=== PATIENT | female | born 1960 | race Caucasian/White ===

== ENCOUNTER 2021-01-29 10:25 | Outpatient (CLI) | payer OTHER, SELFPAY ==
--- NOTE | ~2021-01-29 | MM_ITS ---
EXAMINATION: MM screening cynthia BI w sudha HISTORY: Screening mammogram TECHNIQUE: Craniocaudal and mediolateral oblique 3-D tomosynthesis images were obtained and synthetic 2-D images were generated. CAD analysis was submitted and interpreted. COMPARISON: October 18, 2018, July 20, 2017, August 28, 2015, March 31, 2014 bilateral digital s creening mammogram examinations BREAST PARENCHYMAL COMPOSITION: There are scattered areas of fibroglandular density. FINDINGS: Stable mild fibroglandular asymmetry. There is no evidence of suspicious mass, calcificatio n, or architectural distortion to suggest malignancy in either breast. There has been no suspicious i nterval change. IMPRESSION: 1. No mammographic evidence of malignancy. 2. Recommend routine screening mammography in one year. BI-RADS Category 2: Benign finding(s). Reviewed, dictated and finalized at location A.
== END 2021-01-29 10:26 | disposition home or self-care (01) ==
PROVIDERS: PCP Emergency Medicine; Visit Provider Emergency Medicine
DX: Z12.31 Encounter for screening mammogram for malignant neoplasm of breast (principal)
CPT/HCPCS: 77063; 77067

== ENCOUNTER 2024-04-26 14:45 | Emergency (ER) | payer OTHER, SELFPAY ==
[2024-04-26] VITALS (12 sets, daily range): BP systolic 154–268; BP diastolic 130–169; PULSE 70–110; RESP 16–26; TEMP 36.3; O2SAT 89–99
--- NOTE | ~2024-04-26 | CT_ITS ---
EXAMINATION: CT brain wo con DATE: 04/26/2024 14:59 INDICATION: Stroke TECHNIQUE: Computed tomography (CT) of the head was performed without intravenous contrast. Sagittal and coronal reconstructions were performed. The mA was adjusted according to patient size. Iterative reconstruction technique was employed. The dose-length product was 529.67 mGy-cm. COMPARISON: None FINDINGS: There is an intraparenchymal hemorrhage at the left basal ganglia which measures 2.5 x 2.5 x 3.0 cm. There is mild local mass effect upon the body of the left lateral ventricle. No acute intracranial in farction or abnormal extra axial fluid collection. Ventricles are otherwise normal and symmetric. The orbits, paranasal sinuses and mastoid air cells are normal. IMPRESSION: 1. 3.0 x 2.5 x 2.5 cm intraparenchymal hemorrhage in the left basal ganglia. Dr. Perez discussed t hese findings with Dr. Cifuentes at 2:57 PM. Reviewed, dictated and finalized at location A. IMPRESSION: 1. 3.0 x 2.5 x 2.5 cm intraparenchymal hemorrhage in the left basal ganglia. Dr Annika Perez discussed these findings with Dr. Cifuentes at 2:57 PM.
--- NOTE | ~2024-04-26 | CT_ITS ---
EXAMINATION: CTA brain carotid DATE: 04/26/2024 15:47 INDICATION: Cerebrovascular accident. TECHNIQUE: Computed tomographic angiography (CTA) of the head was performed with 100 mL Omnipaque-350 intravenous contrast. CTA of the neck was performed with intravenous contrast. Automated exposure co ntrol and iterative reconstruction technique were employed. The dose-length product was 934.49 mGy-cm . Maximum intensity projection and volume rendered 3D-reconstructions were created by the [employer] t on a separate workstation. COMPARISON: Head CT 04/26/2024 FINDINGS: HEAD CTA: There is acute intraparenchymal hematoma centered in the left basal ganglia. There is no ac kiana ischemic infarct or abnormal mass lesion. The ventricles are normal in size. The orbits are yashira l. The paranasal sinuses are clear. The mastoid air cells are normal. Left vertebral artery is domina nt. There is no significant stenosis of basilar artery or the posterior cerebral arteries. There is n o significant stenosis of the intracranial internal carotid arteries or anterior or middle cerebral a rteries. Anterior communicating artery is normal. The posterior communicating arteries are normal. Th ere is no aneurysm. NECK CTA: There are no pathologically enlarged lymph nodes. There are nodules in the thyroid measurin g up to 3 mm, likely not clinically significant. There is no significant stenosis of the vertebral ar teries. There is minimal plaque in the proximal internal carotid arteries. There is 0% stenosis of t he proximal right internal carotid artery relative to normal distal artery lumen diameter (NASCET cri teria). There is 0% stenosis of the proximal left internal carotid artery relative to normal distal a rtery lumen diameter. There is extensive dental disease. There is severe cervical spondylosis. IMPRESSION: 1. Acute intraparenchymal hematoma centered in the left basal ganglia. 2. No aneurysm or significant intracranial arterial stenosis. 3. 0% stenosis of the proximal internal carotid arteries relative to normal distal artery lumen diame ters (NASCET criteria). Reviewed, dictated and finalized at location A. IMPRESSION: 1. Acute intraparenchymal hematoma centered in the left basal ganglia. 2. No aneurysm or significant intracranial arterial stenosis. 3. 0% stenosis of the proximal internal carotid arteries relative to normal dis karla artery lumen diameters (NASCET criteria).
--- NOTE | 2024-04-26 14:49 | ECG_ITS ---
Test Date: 2024-04-26 15:05:44 Measurements Intervals [place] Rate: 113 P: 65 IA: 160 QRS: 39 QRSD: 104 T: 80 QT: 364 QTc: 501 Interpretive Statements SINUS TACHYCARDIA WITH ATRIAL PREMATURE COMPLEX AND FREQUENT VENTRICULAR PREMATURE COMPLEXES LEFT VENTRICULAR HYPERTROPHY WITH ST-T CHANGE BORDERLINE ST-T WAVE ABNORMALITY- INF/LAT LEADS BASELINE ARTIFACT- I, II, III, AVR, AVL, AVF, V1, V6 ABNORMAL ECG No previous ECG available for comparison Electronically Signed On 04-26-2024 15:27:53 CDT by Lit Lopez D.O.
--- NOTE | 2024-04-26 14:52 | PC.NURSE ---
Pt taken directly to CT scan following stroke stop. BS 181
[2024-04-26 15:00] LABS: Basophils Absolute Auto 0.1 K/mm3 (0.0-0.1); Basophils Percent Auto 0.8 % (0.2-1.2); Eosinophils Absolute Auto 0.2 K/mm3 (0-0.3); Eosinophils Percent Auto 2.2 % (0-4.4); Hematocrit 40.1 % (37.0-47.0); Hemoglobin 13.5 g/dL (12.0-15.0); Immature Granulocyte Absolute 0.03 K/mm3 (0.00-0.031); Immature Granulocyte Percent A 0.4 % (0-0.5); Lymphocytes Absolute Auto 1.44 K/mm3 (0.9-3.2); Lymphocytes Percent Auto 18.3 % (18.3-44.2); Mean Corpuscular HGB Conc 33.7 g/dl (32-36); Mean Corpuscular Hemoglobin 30.3 pg (26-34); Mean Corpuscular Volume 89.9 fl (80-100); Mean Platelet Volume 10.6 fl (7.4-10.4); Monocytes Absolute Auto 0.7 K/mm3 (0.1-0.6); Monocytes Percent Auto 8.5 % (2.6-8.5); Neutrophils Absolute Auto 5.5 K/mm3 (1.3-6.7); Neutrophils Percent Auto 69.8 % (45.5-73.1); Platelet Count Result 224 k/mm3 (150-375); Red Blood Count 4.46 M/mm3 (4.2-5.4); Red Cell Distribution Width 13.5 % (11.5-14.5); White Blood Count 7.9 K/mm3 (4.5-10.0)
--- NOTE | 2024-04-26 15:03 | ED.NEUROSD ---
HPI - Neuro Symptoms/Deficit General Chief Complaint: Suspected CVA Stated Complaint: CVA symptoms Time Seen by Provider: 04/26/24 14:56 History of Present Illness HPI Narrative: 63-year-old female presented to the emergency department from work after having acute onset right-sided weakness. Patient was transported to the emergency department by EMS. Family states the patient does have history of hypertension and diabetes but is relatively noncompliant with her medications. Upon arrival to the emergency department patient is having significant difficulty communicating and is unable to move her right side. Related Data Allergies Allergy/AdvReac Type Severity Reaction Status Date / Time No Known Allergies Allergy Verified 04/26/24 15:16 Review of Systems Review of Systems: ROS unobtainable: Yes unobtainable due to medical condition [facility] Family History Family History (Updated 05/11/19 @ 15:21 by DOCTOR UNKNOWN) Other Diabetes mellitus Family history of malignant neoplasm Social History Social History Smoking status: Former smoker Smoking end date: 08/23/95 Alcohol intake: never Exam Narrative: APPEARANCE: No distress HEAD: normocephalic, atraumatic. EYES: PERRLA/EOMI, conjunctivae clear. NOSE: Normal no drainage EARS:TMS clear with good light reflex. THROAT: Pharynx clear, no exudate. NECK: Supple. No adenopathy, no masses. RESPIRATORY: Airway patent, respirations nonlabored. Clear to auscultation bilaterally, no rales, rhonchi, wheezing. CARDIOVASCULAR: Regular rate and rhythm without murmurs rubs or gallops. ABDOMINAL: Soft, nontender, nondistended, normal bowel sounds MUSCULOSKELETAL: Moves all extremities. Strength/ROM intact, No edema, No calf tenderness. NEURO: Right facial droop and right-sided neglect. NIH score approximately 21 Course Course Emergency Course: Patient was transferred to [facility] Vital Signs Vital signs: Vital Signs Temperature 97.4 F L 04/26/24 14:46 Pulse Rate 110 H 04/26/24 14:46 Respiratory Rate 25 H 04/26/24 14:46 Blood Pressure 154/130 H 04/26/24 14:46 Pulse Oximetry 94 04/26/24 14:46 Oxygen Delivery Room Air 04/26/24 14:46 Temperature 97.4 F L 04/26/24 15:08 Pulse Rate 101 H 04/26/24 15:46 Respiratory Rate 21 H 04/26/24 15:46 Blood Pressure 224/135 H 04/26/24 15:46 Pulse Oximetry 93 04/26/24 15:55 Oxygen Delivery Nasal Cannula 04/26/24 15:55 Oxygen Flow Rate 2 04/26/24 15:55 MDM - Neuro Symptoms/Deficit MDM Narrative Medical decision making narrative: 63-year-old female presented emergency department for evaluation for altered mental status and right-sided neglect. Patient was very hypertensive upon arrival emergency department. Patient was found to have a basal ganglia bleed and family wanted the patient to go to [facility]. I discussed the case with Neurology at [facility] ultimately patient was accepted to the neuro ICU. Patient was started on a Cardene drip with a target blood pressure 160 systolic and a map of 110. Patient's family was updated on the diagnosis and importance for transfer. Patient did ultimately get a bed at [facility] and patient was transferred by flight. Differential Diagnosis Differential diagnosis: Likely subarachnoid hemorrhage and transient cerebral ischemia Lab Data 04/26/24 14:54 04/26/24 14:54 Labs: Lab Results 04/26/24 04/26/24 Range/Units 14:49 14:54 WBC 7.9 (4.5-10.0) K/mm3 RBC 4.46 (4.2-5.4) M/mm3 Hgb 13.5 (12.0-15.0) g/dL Hct 40.1 (37.0-47.0) % MCV 89.9 (80-100) fl MCH 30.3 (26-34) pg MCHC 33.7 (32-36) g/dl RDW 13.5 (11.5-14.5) % Plt Count 224 (150-375) k/mm3 MPV 10.6 H (7.4-10.4) fl Immature Gran % (Auto) 0.4 (0-0.5) % Neut % (Auto) 69.8 (45.5-73.1) % Lymph % (Auto) 18.3 (18.3-44.2) % [place] % (Auto) 8.5 (2.6-8.5) % Eos % (Auto) 2.2 (0-4.4) % Baso % (Auto) 0.8 (0.2-1.2) % Lym
[2024-04-26 15:10] LABS: Alanine Aminotransferase 14 U/L (6-35); Albumin Level 4.3 g/dL (3.5-5.1); Alkaline Phosphatase 100 U/L (38-126); Anion Gap 11 mmol/L (4-12); Aspartate Amino Transferase 19 U/L (14-36); Bilirubin,Total 0.5 mg/dL (0.2-1.3); Blood Urea Nitrogen 23 mg/dL (7-17); Calcium 8.9 mg/dL (8.4-10.2); Carbon Dioxide 25 mmol/L (22-30); Chloride 102 mmol/L (98-107); Estimated CRCL calculation 36 ml/min; Estimated Glomerular Filt Rate 46; Glucose 172 mg/dL (65-110); Sodium 138 mmol/L (137-145)
[2024-04-26 15:11] LABS: Prothrombin Time 13.4 Seconds (11.1-14.7)
[2024-04-26 15:12] LABS: Partial Thromboplastin Time 26.9 Seconds (22.3-36.8)
[2024-04-26] MEDS: niCARdipine 20 MG/200 ML 20 MG/200 ML BAG 50 MG IV CONT (15:17)
[2024-04-26] MEDS: levETIRAcetam 1000MG/NACL100ML 1,000 MG/100 ML BAG 400 MG IVPB (15:20)
--- NOTE | 2024-04-26 15:41 | PC.NURSE ---
Gave report to [facility] transfer nurse at this time. Nurse states she will call when she gets a bed available.
--- NOTE | 2024-04-26 15:55 | PC.NURSE ---
Pt noted to have snoring respirations, O2 sat of 88% on room air. Pt repositioned, placed on 2 L NC O2 per EDP. Dr Cifuentes at bedside at this time. Pt arousable to tactile stimuli.
[2024-04-26 16:21] LABS: Glucose Point of Care 181 mg/dl (65-105)
== END 2024-04-26 16:29 | disposition short-term general hospital (02) ==
PROVIDERS: Emergency Provider Emergency Medicine; PCP Emergency Medicine
DX: I61.0 Nontraumatic intracerebral hemorrhage in hemisphere, subcortical (principal); R29.720 NIHSS score 20; R41.4 Neurologic neglect syndrome; Z91.148 Patient's other noncompliance with medication regimen for other reason; I10 Essential (primary) hypertension; E11.9 Type 2 diabetes mellitus without complications; Z87.891 Personal history of nicotine dependence; R00.0 Tachycardia, unspecified; I51.7 Cardiomegaly; R94.31 Abnormal electrocardiogram [ECG] [EKG]
CPT/HCPCS: 36415; 70450; 70496; 70498; 80053; 82948; 85025; 85610; 85730; 93005; 96365; 96367; 99291; J1953; J2404; Q9967

== ENCOUNTER 2024-05-20 15:29 | Emergency (ER) | payer OTHER, SELFPAY ==
--- NOTE | ~2024-05-20 | XR_ITS ---
XR chest 1V portable Ordering provider: Brenda Rock MD History: 63 years Female with . CARDIAC ARRHYTHMIA . Comparison: July 29, 2017 FINDINGS: MEDIASTINUM: The cardiac silhouette is not enlarged. LUNGS: No effusions or pneumothorax. Minimal opacification the left lung base. Prominent markings in the right lung base. OTHER: No free air under the diaphragm. Degenerative spine. IMPRESSION: Highly suggestive of atelectasis versus pneumonia in the left lung base. Clinical correlation advised . Reviewed, dictated and finalized at location A. IMPRESSION: Highly suggestive of atelectasis versus pneumonia in the left lung base. Clinic al correlation advised.
--- NOTE | 2024-05-20 15:28 | ED.GENADULT ---
HPI - General Adult General Chief complaint: Arrhythmia/Palpitations Stated complaint: low HR Source: patient Mode of arrival: EMS History of Present Illness HPI narrative: 63 YEARS OLD WHITE FEMALE CAME FROM SENIOR CARE WITH BRADYCARDIA. PATIENT HAD RECENT CVA A.M. WITH RIGHT HEMIPLEGIA RIGHT FACIAL DROOPING AND SLURRED SPEECH. CURRENTLY PATIENT IS AWAKE, ALERT ORIENTED X4, DENYING ANY SYMPTOMS. Related Data Home Medications Medication Instructions Recorded Confirmed amlodipine 10 mg tablet 10 mg PO DAILY 05/03/24 05/03/24 carvedilol 12.5 mg tablet 37.5 mg PO BIDWMEAL 05/03/24 05/03/24 losartan 25 mg tablet 100 mg PO DAILY 05/03/24 05/03/24 metformin 500 mg tablet 500 mg PO BIDWMEAL 05/03/24 05/03/24 Allergies Allergy/AdvReac Type Severity Reaction Status Date / Time No Known Allergies Allergy Verified 04/26/24 15:16 Review of Systems Review of Systems: All systems reviewed & are unremarkable except as noted in HPI and below PMFSH Past Medical History Medical History Basal ganglia hemorrhage Family History Family History Other Diabetes mellitus Family history of malignant neoplasm Social History Social History Smoking status: Never smoker Smoking end date: 08/23/95 Alcohol intake: never Substance use: never Do You Feel Safe in your Home?: Yes Lack of Transportation: YES Lack of Food: Sometimes True Current Housing: I Have Housing Concerned About Future Housing: YES Difficulty Paying Gas/Electric Bills: No Difficulty Paying for Meds: No Currently Unemployed: YES Education: High School Diploma/GED Difficulty w/ Childcare or Family Care: No Spiritual care concerns: No Exam Narrative: GENERAL APPEARANCE: WELL-DEVELOPED, WELL-NOURISHED SKIN: NORMAL COLOR HEAD: NORMOCEPHALIC, NONTRAUMATIC EYES: CLEAR CONJUNCTIVA ENT: OROPHARYNX NORMAL, EARS NORMAL, NOSE NORMAL NECK: SUPPLE, NONTENDER CHEST AND RESPIRATORY: AIRWAY PATENT, NO RESPIRATORY DISTRESS, NO ACCESSORY MUSCLE USE HEART: REGULAR RATE/RHYTHM ABDOMEN: SOFT, NONTENDER, NO ORGANOMEGALY, QUIET BOWEL SOUNDS VASCULAR: NORMAL PERIPHERAL PULSES, NORMAL CAPILLARY REFILL. MUSCULOSKELETAL: NORMAL RANGE OF MOTION, NONTENDER BACK NEUROLOGIC: ALERT AND ORIENTED ?3, RIGHT HEMIPLEGIA, RIGHT FACIAL DROOPING Course Consultations Consultation #1: DR. DUARTE RECOMMENDS TO STOP THE CARVEDILOL COMPLETELY AT THIS TIME. LONG PATIENT IS CURRENTLY IN NORMAL SINUS RHYTHM CAN BE DISCHARGED HOME AND TO MONITOR HER HEART RATE. CARVEDILOL WITH THIS HIGH DOSE IS NOT RECOMMENDED FOR PATIENT AGE AND CANNOT BE USED FOR HYPERTENSION MANAGEMENT. Date: 05/20/24 Time: 18:07 Vital Signs Vital signs: Vital Signs Temperature 36.5 C 05/20/24 15:30 Pulse Rate 116 H 05/20/24 15:30 Respiratory Rate 18 05/20/24 15:30 Blood Pressure 148/92 H 05/20/24 15:30 Pulse Oximetry 98 05/20/24 15:30 Oxygen Delivery Room Air 05/20/24 15:30 Temperature 36.5 C 05/20/24 15:30 Pulse Rate 93 05/20/24 17:16 Respiratory Rate 15 05/20/24 17:16 Blood Pressure 147/84 H 05/20/24 17:16 Pulse Oximetry 97 05/20/24 17:16 Oxygen Delivery Room Air 05/20/24 15:30 Medical Decision Making MDM Narrative Medical decision making narrative: PATIENT HAD BRADYCARDIA PRIOR TO ARRIVAL TO THE EMERGENCY ROOM,, CHANGED TO SINUS TACHYCARDIA ON ARRIVAL TO THE ED AFTER 1 MG OF ATROPINE IV. PATIENT IS ASYMPTOMATIC. VITAL SIGNS SHOWING HEART RATE OF 116 PER MINUTE PHYSICAL EXAMINATION SHOWED A RIGHT HEMIPLE
[2024-05-20 15:30] VITALS: BP 148/92; PULSE 116; RESP 18; TEMP 36.5; O2SAT 98
--- NOTE | 2024-05-20 15:36 | ECG_ITS ---
Test Date: 2024-05-20 15:37:40 Measurements Intervals [place] Rate: 111 P: 60 MT: 163 QRS: 11 QRSD: 92 T: 55 QT: 334 QTc: 454 Interpretive Statements SINUS TACHYCARDIA WITH FREQUENT VENTRICULAR PREMATURE COMPLEXES LEFT VENTRICULAR HYPERTROPHY WITH ST-T CHANGE BORDERLINE ST-T WAVE ABNORMALITY- ANTEROLAT/INF LEADS ABNORMAL ECG Compared to ECG 04/26/2024 15:05:44 NO SIGNIFICANT CHANGE Electronically Signed On 05-20-2024 17:06:14 CDT by Lit Lopez D.O.
[2024-05-20 15:42] VITALS: BP 148/92; PULSE 63; RESP 13; O2SAT 97
[2024-05-20 15:46] VITALS: BP 149/89; PULSE 44; RESP 12; O2SAT 98
[2024-05-20 17:12] VITALS: BP 146/79; PULSE 87; RESP 12; O2SAT 98
[2024-05-20 17:16] VITALS: BP 147/84; PULSE 93; RESP 15; O2SAT 97
[2024-05-20 17:27] LABS: Basophils Percent Auto 0.4 % (0.2-1.2); Eosinophils Absolute Auto 0.2 K/mm3 (0-0.3); Eosinophils Percent Auto 1.6 % (0-4.4); Hematocrit 37.3 % (37.0-47.0); Hemoglobin 12.2 g/dL (12.0-15.0); Immature Granulocyte Absolute 0.06 K/mm3 (0.00-0.031); Immature Granulocyte Percent A 0.6 % (0-0.5); Lymphocytes Percent Auto 14.4 % (18.3-44.2); Mean Corpuscular HGB Conc 32.7 g/dl (32-36); Mean Corpuscular Hemoglobin 30.4 pg (26-34); Mean Platelet Volume 10.5 fl (7.4-10.4); Monocytes Absolute Auto 0.7 K/mm3 (0.1-0.6); Monocytes Percent Auto 7.3 % (2.6-8.5); Neutrophils Absolute Auto 7.4 K/mm3 (1.3-6.7); Neutrophils Percent Auto 75.7 % (45.5-73.1); Platelet Count Result 257 k/mm3 (150-375); Red Blood Count 4.01 M/mm3 (4.2-5.4); Red Cell Distribution Width 13.2 % (11.5-14.5); White Blood Count 9.7 K/mm3 (4.5-10.0)
[2024-05-20 17:38] LABS: Alanine Aminotransferase 12 U/L (6-35); Albumin Level 3.9 g/dL (3.5-5.1); Alkaline Phosphatase 82 U/L (38-126); Anion Gap 9 mmol/L (4-12); Aspartate Amino Transferase 15 U/L (14-36); Bilirubin,Total 0.3 mg/dL (0.2-1.3); Blood Urea Nitrogen 34 mg/dL (7-17); Calcium 9.5 mg/dL (8.4-10.2); Carbon Dioxide 25 mmol/L (22-30); Chloride 105 mmol/L (98-107); Estimated CRCL calculation 28 ml/min; Estimated Glomerular Filt Rate 38; Glucose 97 mg/dL (65-110); Potassium 4.2 mmol/L (3.4-5.0); Sodium 139 mmol/L (137-145)
[2024-05-20 17:50] LABS: Troponin I < 0.012 ng/mL (0.000-0.034)
--- NOTE | 2024-05-20 17:52 | ECG_ITS ---
Test Date: 2024-05-20 18:07:21 Measurements Intervals [place] Rate: 68 P: 55 ME: 164 QRS: 11 QRSD: 95 T: 49 QT: 413 QTc: 440 Interpretive Statements SINUS RHYTHM WITH OCCASIONAL SUPRAVENTRICULAR PREMATURE COMPLEXES AND NON-CONDUCTED ATRIAL PREMATURE COMPLEX CONSIDER INFERIOR INFARCT, AGE INDETERMINATE ABNORMAL ECG Compared to ECG 05/20/2024 15:37:40 HEART RATE HAS DECREASED Electronically Signed On 05-20-2024 20:02:38 CDT by Lit Lopez D.O.
[2024-05-20 18:34] VITALS: BP 155/61; PULSE 79; RESP 15; TEMP 36.9; O2SAT 97
== END 2024-05-20 18:36 ==
PROVIDERS: Emergency Provider Emergency Medicine
DX: R00.1 Bradycardia, unspecified (principal); I69.951 Hemiplegia and hemiparesis following unspecified cerebrovascular disease affecting right dominant side; I69.928 Other speech and language deficits following unspecified cerebrovascular disease; I69.992 Facial weakness following unspecified cerebrovascular disease; Z87.891 Personal history of nicotine dependence; I51.7 Cardiomegaly; R00.0 Tachycardia, unspecified; I49.3 Ventricular premature depolarization
CPT/HCPCS: 36415; 71045; 80053; 84443; 84484; 85025; 93005; 99284

== ENCOUNTER 2024-05-23 10:55 | Inpatient (IN) | payer OTHER, SELFPAY ==
[2024-05-23] VITALS (41 sets, daily range): BP systolic 142–191; BP diastolic 64–119; PULSE 47–120; RESP 12–27; TEMP 36.5–36.6; O2SAT 95–100
--- NOTE | 2024-05-23 | ECHO_ITS ---
Patient Info Name: Jen Liriano Age: 63 years : 1960 Gender: Female Ht: 59 in Wt: 108 lbs BSA: 1.43 m2 HR: 84 bpm BP: 143 / 82 mmHg Heart Rhythm: Sinus Rhythm Technical Quality: Fair Exam Date: 05/23/2024 3:20 PM Exam Location: Echo Lab Patient Status: Outpatient Admit Date: 05/23/2024 Staff Ordering Physician: Chacho Terry MD (sang/ariel) Informatics Manager: Renae Tinajero SUSHANT Attending Provider: Jamir Lubin MD Exam Type: CA echo doppler color flow Study Info Indications R00.1 - Bradycardia, unspecified Complete two-dimensional, color flow and Doppler transthoracic echocardiogram is performed. Summary 1. Complete two-dimensional, color flow and Doppler transthoracic echocardiogram is performed. 2. Left ventricular chamber dimension is normal. 3. Left ventricular systolic function is normal, estimated at 60-65%. 4. There is mildly increased left ventricular wall thickness. 5. The left ventricular diastolic function is grade I diastolic dysfunction. 6. Left atrial chamber dimension is mildly enlarged. 7. Suspected patent foramen ovale visualized by color flow imaging. 8. There is mild mitral valve regurgitation. 9. The mitral valve has calcified annulus. 10. There is mild pulmonic regurgitation. Left Ventricle Left ventricular chamber dimension is normal. Left ventricular systolic function is normal, estimated at 60-65%. There is mildly increased left ventricular wall thickness. The left ventricular diastolic function is grade I diastolic dysfunction. Right Ventricle Right ventricular chamber dimension is normal. Right ventricular systolic function is normal. Left Atria Left atrial chamber dimension is mildly enlarged. Right Atria Right atrial chamber dimension is normal. Atrial Septum Suspected patent foramen ovale visualized by color flow imaging. Aortic Valve The aortic valve is trileaflet. There is mild aortic valve sclerosis. There is no aortic valve stenosis. There is trace aortic valve regurgitation. Pulmonic Valve The pulmonic valve is normal. There is no pulmonic valve stenosis. There is mild pulmonic regurgitation. Mitral Valve The mitral valve has calcified annulus. There is no mitral valve stenosis. There is mild mitral valve regurgitation. Tricuspid Valve The tricuspid valve leaflets are normal. There is no significant tricuspid valve stenosis. There is trace tricuspid valve regurgitation. Pericardium/Pleural The pericardium appears normal. There is no pericardial effusion. Inferior Vena Cava Normal inferior vena cava with >50% collapse upon inspiration consistent with normal right atrial pressure, 5 mmHg. Aorta The aortic root size at the sinus of Valsalva is normal. Left Ventricular Outflow Tract Name Value Normal LVOT 2D LVOT Diameter 1.9 cm LVOT Doppler LVOT Peak Gradient 4 mmHg LVOT Mean Gradient 1 mmHg LVOT VTI 21 cm LVOT VTI/AV VTI Ratio 0.8 LVOT Stroke Volume 60 ml LVOT CO 3.3 l/min LVOT CI 2.3 l/min/m2
--- NOTE | ~2024-05-23 | XR_ITS ---
Clinical Indication: Bradycardia PA and lateral views of the chest: Comparison: 05/12/2024 Findings: The lungs are clear, without evidence of focal consolidation or pleural effusion. Cardiome diastinal silhouette is within normal limits. Bones and soft tissues are unremarkable. Impression: Clear lungs. Reviewed, dictated and finalized at location . Impression: Clear lungs.
--- NOTE | ~2024-05-23 | CT_ITS ---
Non-contrast Head CT History: Altered mental status COMPARISON: 05/23/2024 and 04/26/2024 Technique: Axial non-contrast imaging of the brain was performed. Dose reduction technique was used on this scan by utilizing automated exposure control and iterative reconstruction technique. The dose -length product (DLP) was 529.67 mGy-cm. Findings: Subacute evolving parenchymal hemorrhage in the left basal ganglia essentially unchanged fr om most recent prior exam, significant less dense as compared to prior exam from 04/26/2024. No signifi cant mass effect or midline shift. No new abnormality seen. The ventricles and subarachnoid spaces ar e normal in size. The calvarium appears normal. The visualized paranasal sinuses and mastoid air ce lls are clear. Impression: Stable subacute evolving parenchymal hemorrhage left basal ganglia as compared to most recent prior e xam. No acute abnormality. Reviewed, dictated and finalized at [facility]. Impression: Stable subacute evolving parenchymal hemorrhage left basal ganglia as compared to most recent prior exam. No acute abnormality.
--- NOTE | ~2024-05-23 | MR_ITS ---
MRI of the brain Clinical History: Altered mental status Technique: Axial and sagittal T1-weighted images were acquired. These were followed by axial T2-weigh checo, diffusion weighted, gradient, and FLAIR images. Following intravenous administration of 9 cc Mul tiHance gadolinium, T1-weighted fat-sat imaging was performed in the axial and coronal and sagittal p lanes. Findings: There is a 2.5 x 2.0 cm evolving parenchymal hematoma in the left basal ganglia region, T1 hyperintense and T2 hyperintense, compatible with late subacute phase hemorrhage. There are several a dditional scattered tiny foci of low signal in the brain on gradient images, most notably in the melany and temporal lobes, compatible prior microhemorrhages. There are a few focal FLAIR hyperintense sign al abnormalities in the periventricular white matter. Ventricles and subarachnoid spaces are unremarkable. Orbits are unremarkable. Paranasal sinuses and m astoid air cells are clear. Major intracranial flow voids are intact. Sagittal midline structures are intact. No abnormal postcontrast enhancement identified. IMPRESSION: 2.5 x 2.0 cm late subacute phase hematoma at the left basal ganglia. Additional scattered small foci of low signal on gradient images are compatible with prior microhemor rhages. Consider additional workup for possible underlying bleeding disorder, vasculitis, or hyperten sive hemorrhages. Amyloid angiopathy is a potential alternative consideration, but there minimal whit e matter disease as compared to what is typically seen in this diagnosis. Reviewed, dictated and finalized at [facility]. IMPRESSION: 2.5 x 2.0 cm late subacute phase hematoma at the left basal ganglia. Additional scattered small foci of low signal on gradient images are compatible with prior microhemorrhages. Consider additional workup for possible underlyin g bleeding disorder, vasculitis, or hypertensive hemorrhages. Amyloid angiopath y is a potential alternative consideration, but there minimal white matter dise ase as compared to what is typically seen in this diagnosis.
--- NOTE | ~2024-05-23 | CT_ITS ---
EXAMINATION: CT brain wo con DATE: 05/23/2024 15:09 INDICATION: Worsening speech problems TECHNIQUE: Computed tomography (CT) of the head was performed without intravenous contrast. Sagittal and coronal reconstructions were performed. The mA was adjusted according to patient size. Iterative reconstruction technique was employed. The dose-length product was 605.33 mGy-cm. COMPARISON: head CT and CT angiogram dated 04/26/2024 FINDINGS: Interval evolution with decreased density and slight decrease in size of a now 2.4 x 2.2 cm now isode nse subacute intraparenchymal hematoma centered in the left basal ganglia which previously measured 2 .6 x 2.4 cm. No acute intracranial hemorrhage, acute infarction or abnormal extra axial fluid collect ion. Ventricles remain normal in size with persistent mild local mass effect upon the body of the lef t lateral ventricle. No other abnormal masses or masslike lesions identified. The orbits, paranasal s inuses and mastoid air cells are normal. IMPRESSION: 1. Interval evolution with decreased density and slight decrease in size of a now 2.4 x 2.2 cm subacu te intraparenchymal hematoma centered at the left basal ganglia. No new hemorrhage or other acute int racranial process. Reviewed, dictated and finalized at location A. IMPRESSION: 1. Interval evolution with decreased density and slight decrease in size of a n ow 2.4 x 2.2 cm subacute intraparenchymal hematoma centered at the left basal g anglia. No new hemorrhage or other acute intracranial process.
--- NOTE | 2024-05-23 11:09 | ECG_ITS ---
Test Date: 2024-05-23 11:14:47 Measurements Intervals [place] Rate: 114 P: 59 PA: 165 QRS: 3 QRSD: 97 T: 76 QT: 336 QTc: 464 Interpretive Statements SINUS TACHYCARDIA WITH OCCASIONAL VENTRICULAR PREMATURE COMPLEXES LEFT VENTRICULAR HYPERTROPHY WITH REPOL CHANGES ABNORMAL RHYTHM ECG Compared to ECG 05/20/2024 18:07:21 Ventricular premature complex(es) now present. LEFT VENTRICULAR HYPERTROPHY now present T-wave abnormality now present Sinus rhythm no longer present Atrial premature complex(es) no longer present Myocardial infarct finding no longer present Electronically Signed On 05-23-2024 13:20:30 CDT by Chacho Terry M.D.
--- NOTE | 2024-05-23 11:57 | ED.ARRPALP ---
HPI - Arrhythmia/Palpitations General Chief Complaint: Arrhythmia/Palpitations Stated Complaint: Bradycardic Time Seen by Provider: 05/23/24 11:26 Source: patient and EMS Mode of arrival: EMS Limitations: no limitations History of Present Illness HPI narrative: This is a 63 year old female that presents to the ER for low heart rate. Patient is currently at [facility]. This is her second visit to the ER for same. Her last visit her beta yovani was held. She had an additional episode of bradycardia today at therapy which prompted them to send her in for evaluation again. Patient reports some dull achy chest pain currently. Otherwise has no complaints. Denies shortness of breath or lower extremity edema. Related Data Home Medications Medication Instructions Recorded Confirmed amlodipine 10 mg tablet (Norvasc) 10 mg PO DAILY 05/03/24 05/23/24 carvedilol 12.5 mg tablet 37.5 mg PO BIDWMEAL 05/03/24 05/23/24 losartan 25 mg tablet 100 mg PO DAILY 05/03/24 05/23/24 metformin 500 mg tablet 500 mg PO BIDWMEAL 05/03/24 05/23/24 Allergies Allergy/AdvReac Type Severity Reaction Status Date / Time No Known Allergies Allergy Verified 04/26/24 15:16 Review of Systems Review of Systems: CONSTITUTIONAL: Denies fever CARDIOVASCULAR: Reports chest pain. Denies palpitations, or edema. RESPIRATORY: Denies cough or dyspnea. All systems reviewed & are unremarkable except as noted in HPI and below PMFSH Past Medical History Medical History (Updated 05/23/24 @ 16:31 by Cheryl Cervantes, JOAN) Basal ganglia hemorrhage Essential (primary) hypertension Type 2 diabetes mellitus with hyperglycemia Family History Family History Other Diabetes mellitus Family history of malignant neoplasm Social History Social History Smoking status: Former smoker Tobacco type: cigarettes Smoking end date: 08/23/84 Alcohol intake: never Substance use: never Substance use type: does not use Do You Feel Safe in your Home?: No Lack of Transportation: No Lack of Food: Never True Current Housing: I Have Housing Concerned About Future Housing: No Difficulty Paying Gas/Electric Bills: No Difficulty Paying for Meds: No Currently Unemployed: No Education: Don't Know Difficulty w/ Childcare or Family Care: No Spiritual care concerns: No Exam Narrative: GENERAL: Well-appearing, well-nourished, and in no acute distress. HEAD: Normocephalic, atraumatic. EYES: PERRLA and EOMI. ENT: Nares clear, no rhinorrhea or epistaxis. Mucous membranes moist. Oropharynx without tonsillar hypertrophy exudate or other lesions. Bilateral TMs pearly reyes non-bulging NECK: Supple. No adenopathy or masses. No carotid bruits or JVD CHEST: Clear to auscultation. No respiratory distress. No wheezes rales or rhonchi HEART: Regular rate and rhythm. No murmur heard. Normal peripheral pulses. ABDOMEN: Soft, nontender, nondistended, normal active bowel sounds. EXTREMITIES: Normal range of motion. No edema. SKIN: Warm, dry, no rash. NEURO: No focal deficits. Alert and oriented x3. PSYCH: Normal mood and affect Course Course Emergency Course: Patient updated on her workup and recommendation for admission Consultations Consultation #1: Spoke with hospitalist about patient and workup who accepts admission Date: 05/23/24 Consultation #2: Spoke with cardiology about patient and workup who will consult. We will be able to do pacemaker if she does need Date: 05/23/24 Consultation #3: Spoke with neurology about patient and workup who will consult due to recent hemorrhagic stroke Date: 05/23/24 Vital Signs Vital signs: Vital Signs Pulse Rate 120 H 05/23/24 11:07 Respiratory Rate 17 05/23/24 11:07 Blood Pressure 174/119 H 05/23/24 11:07 Pulse Oximetry 97 05/23/24 11:07 Temperature 97.8 F 05/23/24 11:16 Pulse
[2024-05-23] MEDS: SODIUM CHLORIDE 0.9% IV 500 ML 999 ML IV CONT (12:13)
[2024-05-23 12:28] LABS: Basophils Percent Auto 0.4 % (0.2-1.2); Eosinophils Absolute Auto 0.2 K/mm3 (0-0.3); Hematocrit 40.4 % (37.0-47.0); Hemoglobin 13.5 g/dL (12.0-15.0); Immature Granulocyte Absolute 0.05 K/mm3 (0.00-0.031); Immature Granulocyte Percent A 0.6 % (0-0.5); Lymphocytes Absolute Auto 1.29 K/mm3 (0.9-3.2); Lymphocytes Percent Auto 14.3 % (18.3-44.2); Mean Corpuscular HGB Conc 33.4 g/dl (32-36); Mean Corpuscular Volume 92.7 fl (80-100); Mean Platelet Volume 10.6 fl (7.4-10.4); Monocytes Absolute Auto 0.7 K/mm3 (0.1-0.6); Monocytes Percent Auto 7.2 % (2.6-8.5); Neutrophils Absolute Auto 6.8 K/mm3 (1.3-6.7); Neutrophils Percent Auto 75.5 % (45.5-73.1); Platelet Count Result 243 k/mm3 (150-375); Red Blood Count 4.36 M/mm3 (4.2-5.4); Red Cell Distribution Width 13.4 % (11.5-14.5); White Blood Count 9.1 K/mm3 (4.5-10.0)
[2024-05-23 12:41] LABS: Alanine Aminotransferase 14 U/L (6-35); Albumin Level 4.1 g/dL (3.5-5.1); Alkaline Phosphatase 91 U/L (38-126); Anion Gap 10 mmol/L (4-12); Aspartate Amino Transferase 16 U/L (14-36); Bilirubin,Total 0.4 mg/dL (0.2-1.3); Blood Urea Nitrogen 29 mg/dL (7-17); Calcium 9.5 mg/dL (8.4-10.2); Carbon Dioxide 24 mmol/L (22-30); Chloride 107 mmol/L (98-107); Estimated Glomerular Filt Rate 46; Glucose 124 mg/dL (65-110); Lipase 211 U/L (23-300); Potassium 4.1 mmol/L (3.4-5.0); Sodium 141 mmol/L (137-145)
[2024-05-23 12:44] LABS: INR 1.1; Prothrombin Time 14.6 Seconds (11.1-14.7)
[2024-05-23 12:45] LABS: Partial Thromboplastin Time 26.1 Seconds (22.3-36.8)
[2024-05-23 12:52] LABS: Troponin I < 0.012 ng/mL (0.000-0.034)
[2024-05-23] MEDS: ACETAMINOPHEN 500 MG TABLET 1000 MG PO (13:17)
--- NOTE | 2024-05-23 14:40 | PM.CNCAR ---
Assessment and Plan Assessment and plan (1) Bradycardia: Code(s): R00.1 - Bradycardia, unspecified Status: Acute (2) Chest pain: Qualifiers: Chest pain type: unspecified Qualified Code(s): R07.9 - Chest pain, unspecified Code(s): R07.9 - Chest pain, unspecified Status: Acute Plan 63 yo woman with intraparenchymal hemorrhage, DM type 2, and HTN was brought in from rehab for episodes of bradycardia Bradycardia - currently not bradycardic - given her worsening speech and uncontrolled blood pressure at times, it would be prudent to re-evaluate her neurologically with head ct and neuro consult - during her neuro eval, she can be monitored on tele for further events - echocardiogram Chest Pain - likely due to episodes of bradycardia as it correlates with pt history - will obtain echocardiogram recommendations discussed with Yessenia Franklin History of Present Illness History of Present Illness Consult date/time: 05/23/24 14:40 Requesting physician: Yessenia Franklin PA-C Reason For Visit: Bradycardic Narrative: 63 yo woman with intraparenchymal hemorrhage, DM type 2, and HTN was brought in from rehab for episodes of bradycardia. She states that she feels like she knows what is occurring around her during these episodes of decreased consciousness. While she denies losing consciousness, she states that at times when her heart rate declines, she is unable to move or talk but is aware of her surroundings. She does have associated chest discomfort during these episodes and some mild dyspnea. These resolve when her bradycardia resolves. She and her who provided some of the history at bedside feel that her speech has been worsening since Wednesday. She was previously evaluated for bradycardia and her carvedilol was stopped at that time. She has baseline right sided weakness and mild dysarthria that they feel had improved since her brain bleed but worsened this past weekend. She isn't able to mobilize herself or ambulate without significant help. FORMERLY [facility], [facility] Past Medical History Medical History (Updated 05/23/24 @ 14:29 by Yessenia Franklin PA-C) Basal ganglia hemorrhage Essential (primary) hypertension Type 2 diabetes mellitus with hyperglycemia Family History Family History Other Diabetes mellitus Family history of malignant neoplasm Social History Social History Smoking status: Never smoker Smoking end date: 08/23/95 Alcohol intake: never Substance use: never Do You Feel Safe in your Home?: Yes Lack of Transportation: YES Lack of Food: Sometimes True Current Housing: I Have Housing Concerned About Future Housing: YES Difficulty Paying Gas/Electric Bills: No Difficulty Paying for Meds: No Currently Unemployed: YES Education: High School Diploma/GED Difficulty w/ Childcare or Family Care: No Spiritual care concerns: No Meds Home Medications and Allergies Home Medications Medication Instructions Recorded Confirmed Type amlodipine 10 mg tablet 10 mg PO DAILY 05/03/24 05/03/24 History carvedilol 12.5 mg tablet 37.5 mg PO BIDWMEAL 05/03/24 05/03/24 History losartan 25 mg tablet 100 mg PO DAILY 05/03/24 05/03/24 History metformin 500 mg tablet 500 mg PO BIDWMEAL 05/03/24 05/03/24 History Allergies Allergy/AdvReac Type Severity Reaction Status Date / Time No Known Allergies Allergy Verified 04/26/24 15:16 Vital Signs Vital Signs - 24 hr 05/23/24 11:16 05/23/24 11:20 05/23/24 11:07 Temperature 36.6 C Pulse Rate 116 H 112 H 120 H Respiratory Rate 16 17 Blood Pressure 162/109 H 174/119 H Pulse Oximetry 97 97 Oxygen Delivery Room Air 05/23/24 11:08 05/23/24 11:15 05/23/24 11:17 Temperature Pulse Rate 113 H 115 H 112 H Respiratory Rate 15 19 16 Blood Pressure 162/109 H Pulse Oximetry 97 96 97 Oxygen Delivery
--- NOTE | 2024-05-23 16:20 | PM.IMHP ---
H&P: HPI History of Present Illness Date/Time: 05/23/24 16:20 Chief Complaint: Chest pain Narrative: 63-year-old female with history of diabetes type 2, hypertension and IPH on 04/26/2024 discharge to rehab presents with chest pain and symptomatic bradycardia. Patient was working with PT and OT when she felt chest pain felt signs were obtained and patient was bradycardic in the 30s and 40s given atropine with improvement in her rate. She was then transferred to [facility] for further evaluation. She was seen by Cardiology in the emergency room at that time she was not bradycardic they recommended admission and echocardiogram. Patient states that on Wednesday she had a similar episode where she feels like she was about to black out. Patient denies any chest pain, nausea or vomiting at this time. Review of Systems Constitutional: Constitutional: Reports no additional constitutional complaints Eyes: Eyes: Reports no additional eye complaints ENT: Reports system reviewed and no additional complaints, except as documented Cardiovascular: Cardiovascular: Reports no additional cardiovascular complaints Respiratory: Respiratory: Reports no additional respiratory complaints Gastrointestinal: Gastrointestinal: Reports no additional gastrointestinal complaints Genitourinary: Genitourinary: Reports no additional female genitourinary complaints Musculoskeletal: Comments: Right upper extremity flaccid, right lower extremity extremely weak and heavy Neurologic: Reports Abnormal speech present Comments: Baseline after stroke [facility] Past Medical History Medical History (Updated 05/23/24 @ 16:31 by Cheryl Cervantes APRN) Basal ganglia hemorrhage Essential (primary) hypertension Type 2 diabetes mellitus with hyperglycemia Family History Family History Other Diabetes mellitus Family history of malignant neoplasm Social History Social History Smoking status: Never smoker Smoking end date: 08/23/95 Alcohol intake: never Substance use: never Do You Feel Safe in your Home?: Yes Lack of Transportation: YES Lack of Food: Sometimes True Current Housing: I Have Housing Concerned About Future Housing: YES Difficulty Paying Gas/Electric Bills: No Difficulty Paying for Meds: No Currently Unemployed: YES Education: High School Diploma/GED Difficulty w/ Childcare or Family Care: No Spiritual care concerns: No Meds Home Medications and Allergies Home Medications Medication Instructions Recorded Confirmed Type amlodipine 10 mg tablet 10 mg PO DAILY 05/03/24 05/03/24 History carvedilol 12.5 mg tablet 37.5 mg PO BIDWMEAL 05/03/24 05/03/24 History losartan 25 mg tablet 100 mg PO DAILY 05/03/24 05/03/24 History metformin 500 mg tablet 500 mg PO BIDWMEAL 05/03/24 05/03/24 History Allergies Allergy/AdvReac Type Severity Reaction Status Date / Time No Known Allergies Allergy Verified 04/26/24 15:16 Vital Signs Vital Signs - 24 hr 05/23/24 11:16 05/23/24 11:20 05/23/24 11:07 Temperature 97.8 F Pulse Rate 116 H 112 H 120 H Respiratory Rate 16 17 Blood Pressure 162/109 H 174/119 H Pulse Oximetry 97 97 Oxygen Delivery Room Air 05/23/24 11:08 05/23/24 11:15 05/23/24 11:17 Temperature Pulse Rate 113 H 115 H 112 H Respiratory Rate 15 19 16 Blood Pressure 162/109 H Pulse Oximetry 97 96 97 Oxygen Delivery 05/23/24 11:38 05/23/24 11:45 05/23/24 11:57 Temperature Pulse Rate 95 Respiratory Rate 17 Blood Pressure 163/102 H Pulse Oximetry 97 97 97 Oxygen Delivery 05/23/24 12:00 05/23/24 12:01 05/23/24 12:15 Temperature Pulse Rate 94 95 62 Respiratory Rate 14 18 14 Blood Pressure 184/87 H Pulse Oximetry 98 96 97 Oxygen Delivery 05/23/24 12:16 05/23/24 12:31 05/23/24 12:32 Temperature Pulse Rate 70 75 86 Resp
--- NOTE | 2024-05-23 16:24 | ADMGEN ---
This patient, Jen Liriano, was admitted to IMU Room 200-01 at 1600. Patient/family oriented to hospital policies and general routines including ID bracelet, bed and alarms, visiting hours, pain management, procedures, bathroom and other care routines, personal items, smoking policy, room service/diet, and visiting hours. Information on how to activate the Rapid Response Team has been discussed. Patient/Family are encouraged to report perceived risks to care and to ask questions if they do not understand what they are told or what they should do.
[2024-05-23] MEDS: SODIUM CHLORIDE 0.9% IV 1,000 ML 100 ML IV CONT (17:42)
[2024-05-23 18:00] LABS: Glucose Point of Care 118 mg/dl (65-105)
[2024-05-23 18:03] LABS: Troponin I < 0.012 ng/mL (0.000-0.034)
[2024-05-23 19:49] LABS: Glucose Point of Care 93 mg/dl (65-105)
[2024-05-23 20:38] LABS: Troponin I < 0.012 ng/mL (0.000-0.034)
[2024-05-24] VITALS (19 sets, daily range): BP systolic 156–186; BP diastolic 69–119; PULSE 38–80; RESP 16–18; TEMP 36.3–37.2; O2SAT 95–99; BMI 21.8
[2024-05-24] MEDS: SODIUM CHLORIDE 0.9% IV 1,000 ML 100 ML IV CONT ×2 (04:02→13:31)
[2024-05-24 05:17] LABS: Anion Gap 7 mmol/L (4-12); Blood Urea Nitrogen 24 mg/dL (7-17); Calcium 8.8 mg/dL (8.4-10.2); Carbon Dioxide 22 mmol/L (22-30); Chloride 112 mmol/L (98-107); Estimated Glomerular Filt Rate 50; Glucose 97 mg/dL (65-110); Potassium 3.5 mmol/L (3.4-5.0); Sodium 141 mmol/L (137-145)
--- NOTE | 2024-05-24 08:20 | PM.IMPN ---
Progress Note: A&P Assessment and Plan (1) Symptomatic bradycardia: Code(s): R00.1 - Bradycardia, unspecified Status: Acute Assessment and Plan: Cardiology consulted following recommendations NPO after midnight. Accu-Cheks q.6: Npo Will discuss with Dr. 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: Onset Date: 04/26/24 Code(s): I62.9 - Nontraumatic intracranial hemorrhage, unspecified Status: Acute Assessment and Plan: With residual left-sided weakness Neurology consulted Head CT on 05/23/2024 shows no new bleed, decrease and IPH (5) Dysphagia as late effect of cerebrovascular accident (CVA): Code(s): I69.391 - Dysphagia following cerebral infarction Status: Acute Assessment and Plan: pt with h/o esophageal stricture that required dilation in the past, globus sensation in chest with meals recommend follow up with GI after discharge Patient was on a level 6 diet soft bite size and level 0 thin liquids Continue speech therapy while in hospital (6) Hypertension: Qualifiers: Hypertension type: primary hypertension Qualified Code(s): I10 - Essential (primary) hypertension Code(s): I10 - Essential (primary) hypertension Status: Acute Assessment and Plan: Restarted home Norvasc and losartan P.r.n. hydralazine Plan 63-year-old female status post stroke with right-sided residuals presents the hospital with symptomatic bradycardia cardiology consulted plan for pacemaker. Time Spent With Patient Time: 35 minute Subjective Date/time seen: 05/24/24 08:20 Interval history: 63-year-old female with history of diabetes type 2, hypertension and IPH on 04/26/2024 with residual right-sided deficits discharge to rehab presents with chest pain and symptomatic bradycardia. Last 24 hour events: HR 50-65, patient mildly hypertensive overnight home Norvasc started plan for pacemaker tomorrow Review of Systems Constitutional: Constitutional: Reports no additional constitutional complaints Eyes: Eyes: Reports no additional eye complaints ENT: Reports system reviewed and no additional complaints, except as documented Cardiovascular: Cardiovascular: Reports no additional cardiovascular complaints Respiratory: Respiratory: Reports no additional respiratory complaints Gastrointestinal: Gastrointestinal: Reports no additional gastrointestinal complaints Genitourinary: Genitourinary: Reports no additional female genitourinary complaints Neurologic: Reports Abnormal speech present Exam Const: General: comfortable and no acute distress HENMT: Mouth: Yes dry mucous membranes Eyes: General: appearance normal, both eyes and all related structures Neck: Neck: no JVD Resp: Effort & Inspection: normal respiratory effort Auscultation: clear to auscultation bilaterally Cardio: Rate: regular rate Rhythm: regular rhythm Other: On radiation monitor GI: Auscultation: normal bowel sounds : General: Yes bladder normal to palpation Bimanual exam- vagina & uterus: bladder normal to palpation Skin: General skin exam: normal color Neuro: Speech: Abnormal speech present Motor exam (neuro): Abnormal motor strength present right lower extremity other, right upper extremity other 0 / 5 Objective Data Vital Signs Vital Signs: Vital Signs -
[2024-05-24 08:31] LABS: Glucose Point of Care 123 mg/dl (65-105)
[2024-05-24] MEDS: amLODIPine BESYLATE 10 MG TABLET PO (09:07)
[2024-05-24] MEDS: ENOXAPARIN 40 MG/0.4 ML SYRINGE SUB-Q (09:07)
--- NOTE | 2024-05-24 11:08 | PM.PNCARD ---
Progress Note: A&P Assessment and Plan (1) Bradycardia: Code(s): R00.1 - Bradycardia, unspecified Status: Acute Assessment and Plan: Significant periods of marked bradycardia with heart rate in the upper 30s and low 40s. In general it appears that her heart rate will however around 40-42 beats per minute but will increase. Somewhat difficult to assess degree of symptoms which may or may not be associated with bradycardia. She does describe some fogginess and ?feeling out of it ?. Obviously physical activity is limited due to recent CVA and the even her other symptoms may be related to CVA but obviously could be related to the bradycardia also. For now, will keep her NPO after midnight. Will discuss with Dr. Velazco and plan tentatively for possible pacemaker tomorrow Echo is pending. Continue to hold carvedilol. Will hold enoxaparin for possible ppm (2) Chest pain: Qualifiers: Chest pain type: unspecified Qualified Code(s): R07.9 - Chest pain, unspecified Code(s): R07.9 - Chest pain, unspecified Status: Acute Assessment and Plan: No symptoms at present (3) Hypertension: Qualifiers: Hypertension type: primary hypertension Qualified Code(s): I10 - Essential (primary) hypertension Code(s): I10 - Essential (primary) hypertension Status: Acute Assessment and Plan: BP is markedly elevated. Will add back some losartan at this point. Will start at 50 mg daily Subjective Date/time seen: 05/24/24 11:08 Interval history: 63-year-old admitted for bradycardia Date of service 05/24/2024: She has episodes of feeling foggy. She does not advocate any syncope but does feel like she is ?out of it?. No chest pain or shortness of breath. Because of her hemorrhagic CVA, she is not active at this point and cannot move her right-side Review of Systems Review of Systems: All systems reviewed & are unremarkable except as noted in HPI and below Constitutional: Constitutional: Denies body ache(s) Eyes: Eyes: Denies blurry vision ENT: Reports Normal hearing present Cardiovascular: Cardiovascular: Denies chest pain Respiratory: Respiratory: Denies chest congestion Genitourinary: Genitourinary: Denies hematuria Musculoskeletal: Musculoskeletal: Denies back pain Neurologic: Reports Abnormal speech present Psychiatric: Psychiatric: Denies anxiety Allergic/Immunologic: Allergic/Immunologic: Denies GI upset with certain foods Exam Narrative: Appears older than stated age Const: General: comfortable HENMT: Mouth: Yes moist mucous membranes Other: Poor dentition Eyes: Sclera: sclerae normal Neck: Neck: no JVD Resp: Effort & Inspection: normal respiratory effort Auscultation: clear to auscultation bilaterally Cardio: Rate: bradycardic Rhythm: regular rhythm GI: Inspection: non-distended Auscultation: normal bowel sounds Skin: General skin exam: normal color Neuro: Speech: normal speech Other: 0/5 strength on the right upper and lower extremities Extrem: General: normal to inspection Psych: Affect: normal affect Objective Data Vital Signs Vital Signs: Vital Signs - 24 hr 05/23/24 11:16 05/23/24 11:20 05/23/24 11:15 Temperature 36.6 C Pulse Rate 116 H 112 H 115 H Respiratory Rate 16 19 Blood Pressure 162/109 H Pulse Oximetry 97 96 Oxygen Delivery Room Air 05/23/24 11:17 05/23/24 11:38 05/23/24 11:45 Temperature Pulse Rate 112 H Respiratory Rate 16 Blood Pressure 162/109 H Pulse Oximetry 97 97 97 Oxygen Delivery 05/23/24 11:57 05/23/24 12:00 05/23/24 12:01 Temperature Pulse Rate 95 94 95 Respiratory Rate 17 14 18 Blood Pressure 163/102 H 184/87 H Pulse Oximetry 97 98 96 Oxygen Delivery 05/23/24 12:15 05/23/24 12:16 05/23/24 12:31 Temperature Pulse Rate 62 70 75 Respiratory Rate 14 17 16 Blood Pressure 167/114 H 173/112 H Pulse Oxi
--- NOTE | 2024-05-24 11:32 | WPDMODSED ---
Moderate Sedation Note-Pt Data Patient Data Allergies Allergy/AdvReac Type Severity Reaction Status Date / Time No Known Allergies Allergy Verified 04/26/24 15:16 Home Medications Medication Instructions Recorded Confirmed Type amlodipine 10 mg tablet (Norvasc) 10 mg PO DAILY 05/03/24 05/23/24 History carvedilol 12.5 mg tablet 37.5 mg PO BIDWMEAL 05/03/24 05/23/24 History losartan 25 mg tablet 100 mg PO DAILY 05/03/24 05/23/24 History metformin 500 mg tablet 500 mg PO BIDWMEAL 05/03/24 05/23/24 History Current Medications: Active Medications Acetaminophen (Acetaminophen 325 Mg Tablet) 650 mg PO Q4H PRN PRN Reason: Mild Pain (1-3) or Fever Amlodipine Besylate (Amlodipine Besylate 10 Mg Tablet) 10 mg PO DAILY [facility] Last Admin: 05/24/24 09:07 Dose: 10 mg Dextrose (Dextrose 50% 25 Gm/50 Ml Syringe) 12.5 gm IV PUSH PRN PRN; Protocol PRN Reason: Hypoglycemia Enoxaparin Sodium (Enoxaparin 40 Mg/0.4 Ml Syringe) 40 mg SUB-Q DAILY [facility] Last Admin: 05/24/24 09:07 Dose: 40 mg Glucagon (Glucagon For Inj 1 Mg Vial) 1 mg IM PRN PRN; Protocol PRN Reason: Hypoglycemia Glucose (Glucose Oral Gel 15 Gm Of Glucse In 37.5 Gm Tube) 15 gm PO PRN PRN; Protocol PRN Reason: Hypoglycemia Sodium Chloride (Normal Saline Iv) 1,000 mls @ 100 mls/hr IV CONT .Q10H [facility] Last Admin: 05/24/24 04:02 Dose: 100 mls/hr Dextrose (Dextrose 5% 1,000 Ml) 1,000 mls @ 100 mls/hr IVPB PRN PRN; Protocol PRN Reason: Hypoglycemia Insulin Aspart (Insulin Aspart (*Bkc) 100 Units/Ml) 2 - 5 units SUB-Q TIDWM ANGELINA; Protocol Last Admin: 05/24/24 09:06 Dose: Not Given Insulin Aspart (Insulin Aspart (*Bkc) 100 Units/Ml) 1 - 2 units SUB-Q HS ANGELINA; Protocol Last Admin: 05/23/24 23:06 Dose: Not Given Losartan Potassium (Losartan Potassium 50 Mg Tablet) 50 mg PO QAM [facility]GEL[facility] Oxycodone HCl (Oxycodone Hcl (*Crx) 5 Mg Tab Ir) 5 mg PO Q4H PRN PRN Reason: Pain Rated 5 for more Perflutren Lipid Microsphere (Perflutren Lipid Microspheres 1.5 Ml Vial Diluted To 10 Ml Total Volume) 0 ml IV PUSH ONCE PRN; Protocol PRN Reason: adequate visualization Stop: 05/26/24 14:52 Sedation/Anesthesia: No previous sedation/anesthesia problems (including family history). PMFSH Past Medical History Medical History (Updated 05/24/24 @ 08:27 by Cheryl Cervantes, JOAN) Basal ganglia hemorrhage Essential (primary) hypertension Type 2 diabetes mellitus with hyperglycemia Family History Family History Other Diabetes mellitus Family history of malignant neoplasm Social History Social History Smoking status: Former smoker Tobacco type: cigarettes Smoking end date: 08/23/84 Alcohol intake: never Substance use: never Substance use type: does not use Do You Feel Safe in your Home?: No Lack of Transportation: No Lack of Food: Never True Current Housing: I Have Housing Concerned About Future Housing: No Difficulty Paying Gas/Electric Bills: No Difficulty Paying for Meds: No Currently Unemployed: No Education: Don't Know Difficulty w/ Childcare or Family Care: No Spiritual care concerns: No Mod Sed Physical Exam Physical Exam Pre Procedural Exam: Normal: Appearance, Heart Rate and Heart Rhythm Hours since solid foods: 12 Hours since liquid intake: 8 Mallampati Classification: class III Internal Medicine - PN: Obj Da Vital Signs Vital Signs: Vital Signs - 24 hr 05/23/24 11:38 05/23/24 11:45 05/23/24 11:57 Temperature Pulse Rate 95 Respiratory Rate 17 Blood Pressure 163/102 H Pulse Oximetry 97 97 97 Oxygen Delivery 05/23/24 12:00 05/23/24 12:01 05/23/24 12:15 Temperature Pulse Rate 94 95 62 Respiratory Rate 14 18 14 Blood Pressure 184/87 H Pulse Oximetry 98 96 97 Oxygen Delivery 05/23/24 12:16 05/23/24 12:31 05/23/24 12:32 Temperature Pulse Rate 70 75 86 Respiratory Rate 17 16
--- NOTE | 2024-05-24 11:33 | WPDCARDPROC ---
Cardiac Cath Procedure Note Date of procedure:: 05/24/24 Performing physician:: CATHETERIZATION LABORATORY REPORT Procedure Date 05/24/[address] Cheryl Cervantes Anesthesia: Versed and Fentanyl were ordered and given in my presence at 1121, procedure ended at 1128. Supervision of nurse, Ana Laura Quinones, monitored moderate sedation with 1mg Versed and 50mcg Fentanyl was provided for 7 minutes. Pre-op Diagnosis: Cardiomyopathy Post-op Diagnosis: Cardiomyopathy Procedure(s): Left heart catheterization with coronary angiography Access Site: Right radial artery Brief History and Clinical Indications: All risks, benefits and alternatives to left heart catheterization with or without percutaneous coronary intervention was discussed at length with the patient. Risk of complications including but not limited to bleeding, infection, arrhythmia, stroke, worsening kidney function, blood loss, groin hematoma, limb loss, emergency coronary artery bypass grafting, and even were discussed with the patient and all questions were answered. The patient understood and wished to proceed. Time out called, patient name, date of , medical record number, allergies, procedure performed, identify Garage Worker, patient and staff member concurred with accurate data, procedure carried on. Findings: LEFT HEART CATHETERIZATION FINDINGS: 1. Left main: The left main coronary artery is widely patent without any significant obstructive disease. 2. Left anterior descending: The LAD and the diagonal branches have mild luminal irregularities without any significant obstructive angiographic disease. 3. Left circumflex: The left circumflex artery and the main marginal branches have mild luminal irregularities without any significant obstructive angiographic disease. 4. Right coronary artery: The RCA has mild luminal irregularities without any significant obstructive angiographic disease. The RCA is the dominant vessel. 5. Left ventricle: A. End-diastolic pressure mmHg. B. LV gram deferred. C. No significant gradient across aortic valve on catheter pullback. 6. Opening AO pressure and closing AO pressure RIGHT HEART CATHETERIZATION FINDINGS: Pressures (mmHg): RA: RV: PA: PCWP: Saturations (%): PA: Arterial: CO/CI: Yadiel: Thermo: PVR (STEVENS): Yadiel: Thermo: Description of Procedure: Informed consent signed and placed in the chart. ? Patient transferred to lab animal technologist room. ? Prepped and draped in usual sterile fashion. ? 2% lidocaine injected subcutaneously in area. vein was accessed using micropuncture technique. -FR sheath placed. F [place] catheter was advanced into the right side of the heart chambers and pressures were measured. Hemostasis was achieved by manual pressure. Informed consent signed and placed in the chart. Patient transferred to lab animal technologist room. Prepped and draped in usual sterile fashion. 2% lidocaine in right groin area. Micropuncture needle used to access right common femoral artery with Seldinger technique under fluoroscopic guidance. J wire advanced, micropuncture cannula placed. Right iliofemoral angiogram performed, access confirmed and micropuncture cannula exchanged for 6-FR sheath. ? diagnostic catheter engaged Left Main Coronary Artery. diagnostic catheter engaged Right Coronary Artery. Multiple orthogonal angiogram obtained and reviewed diagnostic catheter crossed aortic valve to obtain LVEDP, LV angiogram deferred. Hemostasis was achieved by Informed consent signed and placed in the chart. ? Patient transferred to lab animal technologist room. ? Prepped and draped in usual sterile fashion. ? 2% lidocaine injected subcutaneously in right wrist area. 22-gauge venipuncture catheter used to access the right radial artery with the Seldinger technique. 6-FR slender sheath placed in right radial artery. Nitroglycerin 20
--- NOTE | 2024-05-24 11:55 | WPDNEURCNPN ---
Assessment and Plan Assessment and plan (1) Hypertension: Qualifiers: Hypertension type: primary hypertension Qualified Code(s): I10 - Essential (primary) hypertension Code(s): I10 - Essential (primary) hypertension Status: Acute (2) Symptomatic bradycardia: Code(s): R00.1 - Bradycardia, unspecified Status: Acute (3) Type 2 diabetes mellitus without complications: Code(s): E11.9 - Type 2 diabetes mellitus without complications Status: Acute (4) Bradycardia with 31-40 beats per minute: Code(s): R00.1 - Bradycardia, unspecified Status: Acute (5) Severe anxiety: Code(s): F41.9 - Anxiety disorder, unspecified Status: Acute Plan 1. Status post left basal gangliar bleed with gradual decreasing the size of the bleed itself 2. Patient is already in rehab with recurrent visits to the ER for the bradycardia 3. Will need the pacemaker water project manager has seen her but she is herself is unable to make the decision right now I discussed with her thoroughly it would not interfere with her rehab she will call her today to come to the hospital discuss and finally give the consent . Consult date: 05/24/24 HPI: Jen Liriano is a 63 year old female Admitted to the hospital through the emergency room for the complaints of bradycardia. Patient was brought to the ER from the [facility] with information that this was her 2nd visit to the ER for the same problem. When she came initially to the ER for the complaints of bradycardia the beta blockers were held but unfortunately she had an other episode of bradycardia and was brought to the ER again. 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 She is a former smoker, never alcohol intake and initial exam revealed her to be with status post left hemispheric stroke and right-sided neurological deficit. Evaluation this time revealed her to have normal CBC with hemoglobin 13.5 platelet count 243 and WBC is 9.1 , basic metabolic panel normal, and complete lab otherwise negative initial chest x-ray revealed no acute parenchymal it was disease, cardiology consultation has already been obtained and at the time of evaluation she was not bradycardiac, as per the water project manager she has recurrent episode of marked bradycardia with heart rate dropping into upper 30s and low 40s and at time she describes her being foggy and feeling out of it making difficult to ascertain that the symptomatology is because of her stroke or the recurrent bradycardia. her most recent lab are stable WBC 9.1 hemoglobin 13.5 platelet count of 243, her urine culture on 05/15 was positive for E coli, and her most recent CT scan of the head documented interval evaluation of the decreased density with a size of 2.4x2.2cm subacute intraparenchymal hematoma centered at the left basal ganglia with no additional bleed, chest x-ray is negative. Review of Systems Review of Systems: All systems reviewed & are unremarkable except as noted in HPI and below PMFSH Past Medical History Medical History Basal ganglia hemorrhage Essential (primary) hypertension Type 2 diabetes mellitus with hyperglycemia Family History Family History Other Diabetes mellitus Family history of malignant neoplasm Social History Social History Smoking status: Former smoker Tobacco type: cigarettes Smoking end date: 08/23/84 Alcohol intake: never Substance use: never Substance us
[2024-05-24 13:00] LABS: Glucose Point of Care 130 mg/dl (65-105)
[2024-05-24 16:27] LABS: Glucose Point of Care 158 mg/dl (65-105)
[2024-05-24 21:01] LABS: Glucose Point of Care 141 mg/dl (65-105)
[2024-05-25] VITALS (20 sets, daily range): BP systolic 124–222; BP diastolic 61–104; PULSE 47–89; RESP 16–24; TEMP 36.3–36.9; O2SAT 95–100
--- NOTE | 2024-05-25 00:47 | ECG_ITS ---
Test Date: 2024-05-25 00:51:52 Measurements Intervals [place] Rate: 60 P: 68 IN: 165 QRS: 0 QRSD: 102 T: 59 QT: 452 QTc: 455 Interpretive Statements SINUS RHYTHM WITH OCCASIONAL SUPRAVENTRICULAR PREMATURE COMPLEXES NONSPECIFIC T-WAVE ABNORMALITY Compared to ECG 05/23/2024 11:14:47 T-wave abnormality now present Sinus tachycardia no longer present Ventricular premature complex(es) no longer present Left ventricular hypertrophy no longer present Electronically Signed On 05-25-2024 12:05:26 CDT by Chacho Terry M.D.
[2024-05-25] MEDS: hydrALAZINE HCL 20 MG/ML VIAL IV PUSH (01:15)
[2024-05-25] MEDS: ACETAMINOPHEN 325 MG TABLET 650 MG PO (01:18)
[2024-05-25 05:36] LABS: Hematocrit 38.9 % (37.0-47.0); Hemoglobin 12.6 g/dL (12.0-15.0); Mean Corpuscular HGB Conc 32.4 g/dl (32-36); Mean Corpuscular Hemoglobin 29.9 pg (26-34); Mean Corpuscular Volume 92.4 fl (80-100); Mean Platelet Volume 10.8 fl (7.4-10.4); Platelet Count Result 242 k/mm3 (150-375); Red Blood Count 4.21 M/mm3 (4.2-5.4); Red Cell Distribution Width 13.3 % (11.5-14.5); White Blood Count 10.8 K/mm3 (4.5-10.0)
[2024-05-25 05:45] LABS: Anion Gap 10 mmol/L (4-12); Carbon Dioxide 19 mmol/L (22-30); Chloride 111 mmol/L (98-107); Potassium 3.4 mmol/L (3.4-5.0); Sodium 140 mmol/L (137-145)
--- NOTE | 2024-05-25 07:13 | PM.PNCARD ---
Progress Note: A&P Assessment and Plan (1) Bradycardia: Code(s): R00.1 - Bradycardia, unspecified Status: Acute Plan 63-year-old white female with: Sinus bradycardia which was questionably symptomatic upon admission. Her beta-yovani has been stopped. At this time her telemetry demonstrates sinus arrhythmia but heart rates generally in the 70-90 range. There are no significant pauses being recorded and no evidence of AV node dysfunction. At this point the patient does not require or have any indication for pacemaker implantation. Audie Velazco MD [facility] Subjective Date/time seen: Date of service: 05/25/24 07:13 Interval history: 63-year-old admitted for bradycardia Date of service 05/24/2024: She has episodes of feeling foggy. She does not advocate any syncope but does feel like she is ?out of it?. No chest pain or shortness of breath. Because of her hemorrhagic CVA, she is not active at this point and cannot move her right-side 05/25/2024: Patient is comfortable offers no cardiovascular symptoms or complaints. Discussed her current rhythm/telemetry recordings. She has no history of syncope. Exam Narrative: Appears older than stated age Const: General: comfortable HENMT: Mouth: Yes moist mucous membranes Other: Poor dentition Eyes: Sclera: sclerae normal EOM: EOMs intact bilaterally Neck: Neck: no JVD Resp: Effort & Inspection: normal respiratory effort Auscultation: clear to auscultation bilaterally Cardio: Rate: regular rate and bradycardic Rhythm: regular rhythm GI: Inspection: non-distended Auscultation: normal bowel sounds Skin: General skin exam: normal color Neuro: Cranial nerves: Yes Normal hearing present Speech: normal speech and Abnormal speech present Other: 0/5 strength on the right upper and lower extremities Extrem: General: normal to inspection Psych: Affect: normal affect Objective Data Vital Signs Vital Signs: Vital Signs - 24 hr 05/24/24 08:19 05/24/24 08:00 05/24/24 08:00 Temperature 36.5 C Pulse Rate 60 47 L Respiratory Rate 16 Blood Pressure 175/69 H Pulse Oximetry 99 Oxygen Delivery Room Air Oxygen Flow Rate 05/24/24 10:00 05/24/24 10:29 05/24/24 12:12 Temperature 36.3 C L Pulse Rate 52 L 77 Respiratory Rate 16 Blood Pressure 159/119 H Pulse Oximetry 98 97 Oxygen Delivery Room Air Oxygen Flow Rate 05/24/24 12:00 05/24/24 12:00 05/24/24 15:59 Temperature 37.2 C Pulse Rate 66 43 L Respiratory Rate 16 Blood Pressure 175/84 H Pulse Oximetry 97 Oxygen Delivery Room Air Oxygen Flow Rate 05/24/24 14:00 05/24/24 16:00 05/24/24 16:00 Temperature Pulse Rate 61 58 L Respiratory Rate Blood Pressure Pulse Oximetry Oxygen Delivery Room Air Oxygen Flow Rate 05/24/24 18:00 05/24/24 20:05 05/24/24 20:00 Temperature 36.6 C Pulse Rate 74 58 L 68 Respiratory Rate 16 Blood Pressure 186/74 H Pulse Oximetry 98 Oxygen Delivery Oxygen Flow Rate 05/24/24 20:00 05/24/24 23:54 05/24/24 22:00 Temperature 36.5 C Pulse Rate 58 L 80 72 Respiratory Rate 16 16 Blood Pressure 183/87 H Pulse Oximetry 98 95 Oxygen Delivery Room Air Oxygen Flow Rate 05/25/24 00:00 05/25/24 00:40 05/25/24 02:14 Temperature Pulse Rate 80 Respiratory Rate 16 Blood Pressure 222/104 H 124/61 Pulse Oximetry 95 Oxygen Delivery Room Air Oxygen Flow Rate 05/25/24 01:15 05/25/24 04:00 05/25/24 04:00 Temperature 36.3 C L Pulse Rate 80 79 Respiratory Rate 16 18 Blood Pressure 202/89 H 152/86 H Pulse Oximetry 95 100 Oxygen Delivery Room Air Oxygen Flow Rate 05/25/24 00:00 05/25/24 02:00 05/25/24 04:00 Temperature Pulse Rate 79 80 75 Respiratory Rate Blood Pressure Pulse Oximetry Oxygen Delivery Oxygen Flow Rate 05/25/24 00:48 05/25/24 06:00 Temperature 36.6 C Pulse Rate
[2024-05-25] MEDS: SODIUM CHLORIDE 0.9% IV 1,000 ML 100 ML IV CONT (08:38)
[2024-05-25] MEDS: amLODIPine BESYLATE 10 MG TABLET PO (08:39)
[2024-05-25] MEDS: LOSARTAN POTASSIUM 50 MG TABLET PO (08:39)
--- NOTE | 2024-05-25 11:32 | P.CDI_ITS ---
CDI Query Clarification Request BMI: 21.4 Nutritional Diagnostic Statement: Please refer to the comprehensive nutrition assessment for further information. If you agree with diagnosis of Moderate protein calorie malnutrition related to chronic stroke, as evidenced by weight loss 6%/1 month; poor intakes <75% needs >1 month; moderate muscle wasting and fat loss. Please specify severity if known: * Mild * Moderate * Severe * Other/Unknown <Aicha Pierce RN - Last Filed: 05/25/24 11:33> Clarified Diagnosis Clarified Diagnosis: Moderate protein calorie malnutrition related to chronic stroke <Natalie German MD - Last Filed: 05/25/24 17:10>
[2024-05-25 12:27] LABS: Glucose Point of Care 140 mg/dl (65-105)
[2024-05-25 12:27] LABS: Glucose Point of Care 164 mg/dl (65-105)
--- NOTE | 2024-05-25 14:24 | PM.IMPN ---
Progress Note: A&P Assessment and Plan (1) Constipation: Code(s): K59.00 - Constipation, unspecified Status: Acute Assessment and Plan: Pt on iv fluids start laxatives last BM was on wed BM prior to DC to [facility] (2) Symptomatic bradycardia: Code(s): R00.1 - Bradycardia, unspecified Status: Acute Assessment and Plan: Watch on tele overnite Pt not needing pacemaker as per cardiology md Bradycardia secondary to beta blockers (3) Hyperglycemia due to diabetes mellitus: Code(s): E11.65 - Type 2 diabetes mellitus with hyperglycemia Status: Acute Assessment and Plan: Hold metformin while in hospital Diabetic diet sliding scale insulin Accu-Cheks AC and HS (4) Gait abnormality: Code(s): R26.9 - Unspecified abnormalities of gait and mobility Status: Acute Assessment and Plan: PT OT evaluation Baclofen held at this time to see if it improves weakness (5) 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: Onset Date: 04/26/24 Code(s): I62.9 - Nontraumatic intracranial hemorrhage, unspecified Status: Acute Assessment and Plan: With residual left-sided weakness Neurology consulted Head CT on 05/23/2024 shows no new bleed, decrease and IPH (6) Dysphagia as late effect of cerebrovascular accident (CVA): Code(s): I69.391 - Dysphagia following cerebral infarction Status: Acute Assessment and Plan: pt with h/o esophageal stricture that required dilation in the past, globus sensation in chest with meals recommend follow up with GI after discharge Patient was on a level 6 diet soft bite size and level 0 thin liquids Continue speech therapy while in hospital (7) Hypertension: Qualifiers: Hypertension type: primary hypertension Qualified Code(s): I10 - Essential (primary) hypertension Code(s): I10 - Essential (primary) hypertension Status: Acute Assessment and Plan: Restarted home Norvasc and losartan P.r.n. hydralazine Subjective Date/time seen: 05/25/24 14:24 Interval history: 63-year-old female with history of diabetes type 2, hypertension and IPH on 04/26/2024 with residual right-sided deficits discharge to rehab presents with chest pain and symptomatic bradycardia. [facility] chest pain Pt found to be bradycardic but likely secondary to beta blockers Pt does not need pacemaker as per cardiology MD Pt awaiting to Dc to [facility] pt not had BM since wed awaiting BM prior to DC to [facility] Review of Systems Review of Systems: pt feeling anxious Exam Const: General: comfortable and no acute distress HENMT: Mouth: Yes dry mucous membranes Eyes: General: appearance normal, both eyes and all related structures Neck: Neck: no JVD Resp: Effort & Inspection: normal respiratory effort Auscultation: clear to auscultation bilaterally Cardio: Rate: regular rate Rhythm: regular rhythm Other: On head scorer GI: Auscultation: normal bowel sounds : General: Yes bladder normal to palpation Bimanual exam- vagina & uterus: bladder normal to palpation Skin: General skin exam: normal color Neuro: Speech: Abnormal speech present Motor exam (neuro): Abnormal motor strength present right lower extremity other, right upper extremity other 0 / 5 Objective Data Vital Signs Vital Signs: Vital Signs - 24 hr 05/24/24 15:59 05/24/24 16:00 05/24/24 16:00 Temperature 37.2 C Pulse Rate 43 L 58 L Respiratory Rate 16 Blood Pressure 175/84 H Pulse Oximetry 97 Oxygen Delivery Room Air Oxygen Flow Rate 05/24/24 18:00 05/24/24 20:05 05/24/24 20:00 Temperature 36.6 C Pulse Rate 74 58 L 68 Respiratory Rate 16 Blood Pressure 186/74 H Pulse Oximetry 98 Oxygen Delivery Oxygen Flow Rate 05/24/24
[2024-05-25 17:05] LABS: Glucose Point of Care 165 mg/dl (65-105)
[2024-05-25 20:29] LABS: Glucose Point of Care 151 mg/dl (65-105)
[2024-05-25] MEDS: SENNA/DOCUSATE SODIUM TABLET 1 TAB PO (21:39)
[2024-05-25] MEDS: hydrALAZINE HCL 20 MG/ML VIAL 10 MG IV PUSH (21:48)
--- NOTE | 2024-05-25 23:53 | PC.NURSE ---
Patient's BP 183/96 with complaints of mouth pain. Patient is tachypneic and stating that she can't sleep. Dr. Stern notified and new orders given for Benadryl 50mg IVP once and hydralazine 10mg IVP once.
[2024-05-26] VITALS (19 sets, daily range): BP systolic 127–175; BP diastolic 46–110; PULSE 50–94; RESP 14–18; TEMP 36.6–36.8; O2SAT 90–100
[2024-05-26] MEDS: hydrALAZINE HCL 20 MG/ML VIAL 10 MG IV PUSH (00:40)
--- NOTE | 2024-05-26 00:45 | PC.NURSE ---
Patient appears to be in and out of alertness. Patient A&O and following commands, but shortly after is difficult to arouse with painful stimuli. BP 183/96 and hydralazine 10mg administered IVP. Leena CAMERON made aware and after assessment MD ordered a STAT Head CT.
--- NOTE | 2024-05-26 01:27 | PC.NURSE ---
off of floor for head CT
[2024-05-26 01:30] LABS: Alveolar/Arterial O2 Gradient 32.5 mmHg; Base Excess ABG -1.6 mEq/l (+/-2.0); Fractional Inspired Oxygen 21 %; HCO3 ABG 20.8 mEq/l (22.0-26.0); Oxygen Content ABG 19.6 %vol (16.0-22.0); Oxygen Saturation ABG 96.9 % (95.0-100.0); Oxyhemoglobin 96.4 % THb (90.0-100.0); PO2 ABG 82.5 mmHg (80.0-100.0); PO2 FiO2 Ratio Arterial Blood 3.93 %; Total Hemoglobin 14.4 g/dL (12.0-18.0); pH ABG 7.473 (7.350-7.450)
[2024-05-26 01:32] LABS: Device ROOM AIR; Modified Allen's Test Pass; Site Drawn RIGHT RADIAL
[2024-05-26 01:33] LABS: Basophils Percent Auto 0.4 % (0.2-1.2); Eosinophils Absolute Auto 0.1 K/mm3 (0-0.3); Hematocrit 41.3 % (37.0-47.0); Hemoglobin 13.9 g/dL (12.0-15.0); Lymphocytes Absolute Auto 1.36 K/mm3 (0.9-3.2); Lymphocytes Percent Auto 13.6 % (18.3-44.2); Mean Corpuscular HGB Conc 33.7 g/dl (32-36); Mean Corpuscular Hemoglobin 30.5 pg (26-34); Mean Corpuscular Volume 90.6 fl (80-100); Mean Platelet Volume 10.3 fl (7.4-10.4); Monocytes Absolute Auto 0.9 K/mm3 (0.1-0.6); Monocytes Percent Auto 8.5 % (2.6-8.5); Neutrophils Absolute Auto 7.5 K/mm3 (1.3-6.7); Neutrophils Percent Auto 75.5 % (45.5-73.1); Platelet Count Result 263 k/mm3 (150-375); Red Blood Count 4.56 M/mm3 (4.2-5.4); Red Cell Distribution Width 13.7 % (11.5-14.5)
--- NOTE | 2024-05-26 01:42 | PC.NURSE ---
Return to room from CT
[2024-05-26 01:45] LABS: Alanine Aminotransferase 12 U/L (6-35); Albumin Level 4.1 g/dL (3.5-5.1); Alkaline Phosphatase 86 U/L (38-126); Ammonia < 9 umol/L (9-30); Anion Gap 13 mmol/L (4-12); Aspartate Amino Transferase 14 U/L (14-36); Bilirubin,Total 0.6 mg/dL (0.2-1.3); Blood Urea Nitrogen 15 mg/dL (7-17); Calcium 9.7 mg/dL (8.4-10.2); Carbon Dioxide 18 mmol/L (22-30); Chloride 109 mmol/L (98-107); Estimated Glomerular Filt Rate 56; Glucose 164 mg/dL (65-110); Lactic Acid Reflex 0.7 mmol/L (0.7-2.0); Magnesium 1.8 mg/dL (1.6-2.3); Phosphorus 3.9 mg/dL (2.5-4.5); Potassium 3.2 mmol/L (3.4-5.0); Sodium 140 mmol/L (137-145)
[2024-05-26 07:50] LABS: Glucose Point of Care 150 mg/dl (65-105)
[2024-05-26] MEDS: amLODIPine BESYLATE 10 MG TABLET PO (09:01)
[2024-05-26] MEDS: LOSARTAN POTASSIUM 50 MG TABLET PO ×2 (09:01→20:48)
[2024-05-26] MEDS: POTASSIUM CHLORIDE 20 MEQ PACKET (FOR LIQUID) 40 MEQ PO (11:33)
[2024-05-26 11:45] LABS: Glucose Point of Care 183 mg/dl (65-105)
--- NOTE | 2024-05-26 12:00 | PM.IMPN ---
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: Onset Date: 04/26/24 Code(s): I62.9 - Nontraumatic intracranial hemorrhage, unspecified Status: Acute (6) Dysphagia as late effect of cerebrovascular accident (CVA): Code(s): I69.391 - Dysphagia following cerebral infarction Status: Acute (7) Hypertension: Qualifiers: Hypertension type: primary hypertension Qualified Code(s): I10 - Essential (primary) hypertension Code(s): I10 - Essential (primary) hypertension Status: Acute Plan This is a 63-year-old female who presents to the ER for low heart rate from [place] [facility] carvedilol and was held however had additional episode of bradycardia at therapy which prompted her to come in for evaluation again. She also reported some chest pain. Denies any shortness of breath or lower extremity edema. Recent history of intraparenchymal hemorrhage was treated at [facility]. She was given a dose of atropine by EMS in route. Patient remained in sinus rhythm during her stay in ER. Laboratory evaluation showed his creatinine 1.2 EKG showed sinus tachycardia upon arrival. Cardiology was consulted. Noted significant periods of marked bradycardia with heart rate in upper 30s and low 40s. Carvedilol on hold. No pacemaker implantation per Cardiology. Has no significant pauses and no evidence of AV node dysfunction. Neurology on board for history of intraparenchymal bleed CT head with resolving bleed. Brain MRI today with 2.5 x 2 cm leak face hematoma at the left basal ganglia. Type 2 diabetes Symptomatic bradycardia Right hemiplegia next dysphagia Hypertension adjust medication DVT prophylaxis SCDs code status full code Subjective Date/time seen: 05/26/24 12:00 Interval history: 63-year-old female with history of diabetes type 2, hypertension and IPH on 04/26/2024 with residual right-sided deficits discharge to rehab presents with chest pain and symptomatic bradycardia. [facility] had chest pain Pt found to be bradycardic but likely secondary to beta blockers Pt does not need pacemaker as per cardiology MD Pt awaiting to Dc to [facility] pt not had BM since wed awaiting BM prior to DC to [facility] Review of Systems Review of Systems: All systems reviewed & are unremarkable except as noted in HPI and below Exam Narrative: GENERAL: Well-appearing, well-nourished, and in no acute distress. HEAD: Normocephalic, atraumatic. EYES: PERRLA and EOMI. ENT: Nares clear, no rhinorrhea or epistaxis. Mucous membranes moist. NECK: Supple. No adenopathy or masses. No carotid bruits or JVD CHEST: Clear to auscultation. No respiratory distress. No wheezes rales or rhonchi HEART: Regular rate and rhythm. No murmur heard. Normal peripheral pulses. ABDOMEN: Soft, nontender, nondistended, normal active bowel sounds. EXTREMITIES: Normal range of motion. No edema. SKIN: Warm, dry, no rash. NEURO: Right hemiplegia Alert and oriented x3. PSYCH: Normal mood and affect Objective Data Vital Signs Vital Signs: Vital Signs - 24 hr 05/25/24 14:00 05/25/24 16:00 05/25/24 16:00 Temperature 97.5 F L Pulse Rate 81 85 86 Respiratory Rate 18 Blood Pressure 153/90 H Pulse Oximetry 99 Oxygen Delivery 05/25/24 18:00 05/25/24 16:00 05/25/24 20:32 Temperature 97.7 F Pulse Rate 86 88 Respiratory Rate 18 Blood Pressure 176
[2024-05-26] MEDS: hydrALAZINE 10 MG TABLET PO ×3 (12:33→20:48)
[2024-05-26 20:32] LABS: Glucose Point of Care 161 mg/dl (65-105)
[2024-05-26] MEDS: SENNA/DOCUSATE SODIUM TABLET 1 TAB PO (20:48)
[2024-05-27] VITALS (10 sets, daily range): BP systolic 151–178; BP diastolic 73–97; PULSE 48–90; RESP 16–18; TEMP 36.5–37.3; O2SAT 96–100
[2024-05-27 04:44] LABS: Basophils Percent Auto 0.5 % (0.2-1.2); Eosinophils Absolute Auto 0.2 K/mm3 (0-0.3); Hematocrit 39.7 % (37.0-47.0); Immature Granulocyte Absolute 0.05 K/mm3 (0.00-0.031); Immature Granulocyte Percent A 0.6 % (0-0.5); Lymphocytes Percent Auto 22.3 % (18.3-44.2); Mean Corpuscular HGB Conc 32.7 g/dl (32-36); Mean Corpuscular Hemoglobin 29.9 pg (26-34); Mean Corpuscular Volume 91.3 fl (80-100); Mean Platelet Volume 10.4 fl (7.4-10.4); Monocytes Absolute Auto 0.8 K/mm3 (0.1-0.6); Monocytes Percent Auto 9.9 % (2.6-8.5); Neutrophils Absolute Auto 5.5 K/mm3 (1.3-6.7); Neutrophils Percent Auto 64.7 % (45.5-73.1); Platelet Count Result 237 k/mm3 (150-375); Red Blood Count 4.35 M/mm3 (4.2-5.4); Red Cell Distribution Width 13.8 % (11.5-14.5); White Blood Count 8.5 K/mm3 (4.5-10.0)
[2024-05-27 04:54] LABS: Alanine Aminotransferase 13 U/L (6-35); Albumin Level 3.9 g/dL (3.5-5.1); Alkaline Phosphatase 73 U/L (38-126); Anion Gap 11 mmol/L (4-12); Aspartate Amino Transferase 18 U/L (14-36); Bilirubin,Total 0.6 mg/dL (0.2-1.3); Blood Urea Nitrogen 24 mg/dL (7-17); Calcium 9.5 mg/dL (8.4-10.2); Carbon Dioxide 21 mmol/L (22-30); Chloride 108 mmol/L (98-107); Estimated Glomerular Filt Rate 42; Glucose 113 mg/dL (65-110); Potassium 3.7 mmol/L (3.4-5.0); Sodium 140 mmol/L (137-145)
[2024-05-27 08:01] LABS: Glucose Point of Care 143 mg/dl (65-105)
[2024-05-27] MEDS: SENNA/DOCUSATE SODIUM TABLET 1 TAB PO ×2 (09:52→16:13)
[2024-05-27] MEDS: LOSARTAN POTASSIUM 50 MG TABLET PO ×2 (09:52→20:08)
[2024-05-27] MEDS: hydrALAZINE HCL 25 MG TABLET PO ×2 (09:52→16:13)
[2024-05-27] MEDS: amLODIPine BESYLATE 10 MG TABLET PO (09:52)
--- NOTE | 2024-05-27 10:19 | PM.IMPN ---
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: Onset Date: 04/26/24 Code(s): I62.9 - Nontraumatic intracranial hemorrhage, unspecified Status: Acute (6) Dysphagia as late effect of cerebrovascular accident (CVA): Code(s): I69.391 - Dysphagia following cerebral infarction Status: Acute (7) Hypertension: Qualifiers: Hypertension type: primary hypertension Qualified Code(s): I10 - Essential (primary) hypertension Code(s): I10 - Essential (primary) hypertension Status: Acute Plan This is a 63-year-old female who presents to the ER for low heart rate from [place] [facility] carvedilol and was held however had additional episode of bradycardia at therapy which prompted her to come in for evaluation again. She also reported some chest pain. Denies any shortness of breath or lower extremity edema. Recent history of intraparenchymal hemorrhage was treated at [facility]. She was given a dose of atropine by EMS in route. Patient remained in sinus rhythm during her stay in ER. Laboratory evaluation showed his creatinine 1.2 EKG showed sinus tachycardia upon arrival. Cardiology was consulted. Noted significant periods of marked bradycardia with heart rate in upper 30s and low 40s. Carvedilol on hold. No pacemaker implantation per Cardiology. Has no significant pauses and no evidence of AV node dysfunction. Neurology on board for history of intraparenchymal bleed CT head with resolving bleed. Brain MRI 05/26/2024 with 2.5 x 2 cm leak face hematoma at the left basal ganglia. Type 2 diabetes Symptomatic bradycardia this has resolved Right hemiplegia next dysphagia Hypertension adjust medication up titrate hydralazine today DVT prophylaxis SCDs code status full code Subjective Date/time seen: 05/27/24 10:19 Interval history: Patient finally had bowel movement today. No shortness of breath or chest pain feels good. Blood pressures trend reviewed. Review of Systems Review of Systems: All systems reviewed & are unremarkable except as noted in HPI and below Exam Narrative: GENERAL: Well-appearing, well-nourished, and in no acute distress. HEAD: Normocephalic, atraumatic. EYES: PERRLA and EOMI. ENT: Nares clear, no rhinorrhea or epistaxis. Mucous membranes moist. NECK: Supple. No adenopathy or masses. No carotid bruits or JVD CHEST: Clear to auscultation. No respiratory distress. No wheezes rales or rhonchi HEART: Regular rate and rhythm. No murmur heard. Normal peripheral pulses. ABDOMEN: Soft, nontender, nondistended, normal active bowel sounds. EXTREMITIES: Normal range of motion. No edema. SKIN: Warm, dry, no rash. NEURO: Right hemiplegia Alert and oriented x3. PSYCH: Normal mood and affect Objective Data Vital Signs Vital Signs: Vital Signs - 24 hr 05/26/24 10:35 05/26/24 12:00 05/26/24 12:00 Temperature 98.0 F Pulse Rate 53 L 50 L Respiratory Rate 16 18 Blood Pressure 170/74 H 155/87 H Pulse Oximetry 98 99 Oxygen Delivery Room Air 05/26/24 12:00 05/26/24 14:00 05/26/24 15:52 Temperature 98.3 F Pulse Rate 77 67 86 Respiratory Rate 16 Blood Pressure 155/90 H Pulse Oximetry 90 Oxygen Delivery 05/26/24 16:00 05/26/24 18:00 05/26/24 16:00 Temperature Pulse Rate 92 94 Respiratory Rate Blood Pressure Pulse Oximetry Oxygen Delivery Room Air 05/26/24 19:42 05/26/24 20:00 05/26/24 20:00 Temperature 98 F Pul
[2024-05-27 13:07] LABS: Glucose Point of Care 296 mg/dl (65-105)
--- NOTE | 2024-05-27 16:48 | PC.NURSE ---
This patient, Jen Liriano, was transferred to [facility] on 05/27/24 at 1337. Personal belongings sent with patient. Report given to ELISE Song. Appropriate documentation sent with patient.
[2024-05-27 16:50] LABS: Glucose Point of Care 144 mg/dl (65-105)
[2024-05-27 20:16] LABS: Glucose Point of Care 149 mg/dl (65-105)
[2024-05-28] VITALS (9 sets, daily range): BP systolic 143–185; BP diastolic 82–94; PULSE 80–100; RESP 16–26; TEMP 36.3–36.6; O2SAT 96–100
[2024-05-28] MEDS: hydrALAZINE HCL 25 MG TABLET PO ×3 (00:11→13:29)
[2024-05-28] MEDS: hydrALAZINE HCL 20 MG/ML VIAL 10 MG IV PUSH (04:16)
[2024-05-28 08:02] LABS: Glucose Point of Care 132 mg/dl (65-105)
[2024-05-28] MEDS: LOSARTAN POTASSIUM 50 MG TABLET PO ×2 (08:36→21:11)
[2024-05-28] MEDS: amLODIPine BESYLATE 10 MG TABLET PO (08:37)
--- NOTE | 2024-05-28 11:13 | PM.IMPN ---
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: Onset Date: 04/26/24 Code(s): I62.9 - Nontraumatic intracranial hemorrhage, unspecified Status: Acute (6) Dysphagia as late effect of cerebrovascular accident (CVA): Code(s): I69.391 - Dysphagia following cerebral infarction Status: Acute (7) Hypertension: Qualifiers: Hypertension type: primary hypertension Qualified Code(s): I10 - Essential (primary) hypertension Code(s): I10 - Essential (primary) hypertension Status: Acute Plan This is a 63-year-old female who presents to the ER for low heart rate from [place] [facility] carvedilol and was held however had additional episode of bradycardia at therapy which prompted her to come in for evaluation again. She also reported some chest pain. Denies any shortness of breath or lower extremity edema. Recent history of intraparenchymal hemorrhage was treated at [facility]. She was given a dose of atropine by EMS in route. Patient remained in sinus rhythm during her stay in ER. Laboratory evaluation showed his creatinine 1.2 EKG showed sinus tachycardia upon arrival. Cardiology was consulted. Noted significant periods of marked bradycardia with heart rate in upper 30s and low 40s. Carvedilol on hold. No pacemaker implantation per Cardiology. Has no significant pauses and no evidence of AV node dysfunction. Neurology on board for history of intraparenchymal bleed CT head with resolving bleed. Brain MRI 05/26/2024 with 2.5 x 2 cm leak face hematoma at the left basal ganglia. Type 2 diabetes Symptomatic bradycardia this has resolved Right hemiplegia next dysphagia Hypertension adjust medication up titrate hydralazine delete DVT prophylaxis SCDs code status full code Subjective Date/time seen: 05/28/24 11:13 Interval history: No overnight events no new complaints. Blood pressure trend reviewed Review of Systems Review of Systems: All systems reviewed & are unremarkable except as noted in HPI and below Exam Narrative: GENERAL: Well-appearing, well-nourished, and in no acute distress. HEAD: Normocephalic, atraumatic. EYES: PERRLA and EOMI. ENT: Nares clear, no rhinorrhea or epistaxis. Mucous membranes moist. NECK: Supple. No adenopathy or masses. No carotid bruits or JVD CHEST: Clear to auscultation. No respiratory distress. No wheezes rales or rhonchi HEART: Regular rate and rhythm. No murmur heard. Normal peripheral pulses. ABDOMEN: Soft, nontender, nondistended, normal active bowel sounds. EXTREMITIES: Normal range of motion. No edema. SKIN: Warm, dry, no rash. NEURO: Right hemiplegia Alert and oriented x3. PSYCH: Normal mood and affect Objective Data Vital Signs Vital Signs: Vital Signs - 24 hr 05/27/24 12:00 05/27/24 14:56 05/27/24 16:00 Temperature 97.7 F 98.3 F 98.3 F Pulse Rate 53 L 48 L 48 L Respiratory Rate 18 18 18 Blood Pressure 151/73 H 162/85 H 162/85 H Pulse Oximetry 99 98 98 Oxygen Delivery 05/27/24 16:00 05/27/24 12:00 05/27/24 20:00 Temperature 99.1 F Pulse Rate 90 87 60 Respiratory Rate 16 Blood Pressure 152/81 H Pulse Oximetry 96 Oxygen Delivery 05/27/24 20:00 05/28/24 00:00 05/28/24 00:00 Temperature Pulse Rate 81 84 81 Respiratory Rate 16 Blood Pressure 180/92 H Pulse Oximetry 97 Oxygen Delivery 05/28/24 04:00 05/28/24 04:00 05/28/24 05:15 Temperature 97.9 F Pulse Rate 86 83 80 Respirator
[2024-05-28 11:30] LABS: Glucose Point of Care 175 mg/dl (65-105)
[2024-05-28 17:05] LABS: Glucose Point of Care 178 mg/dl (65-105)
[2024-05-28] MEDS: hydrALAZINE HCL 25 MG TABLET 50 MG PO ×2 (17:30→23:12)
[2024-05-28 20:07] LABS: Glucose Point of Care 204 mg/dl (65-105)
[2024-05-28] MEDS: ACETAMINOPHEN 325 MG TABLET 650 MG PO (23:08)
[2024-05-29] VITALS (13 sets, daily range): BP systolic 140–174; BP diastolic 78–107; PULSE 47–108; RESP 16–18; TEMP 35.5–37.1; O2SAT 97–100
[2024-05-29] MEDS: hydrALAZINE HCL 20 MG/ML VIAL 10 MG IV PUSH (06:03)
[2024-05-29 06:37] LABS: Basophils Absolute Auto 0.1 K/mm3 (0.0-0.1); Basophils Percent Auto 0.8 % (0.2-1.2); Eosinophils Absolute Auto 0.2 K/mm3 (0-0.3); Eosinophils Percent Auto 2.9 % (0-4.4); Hematocrit 41.2 % (37.0-47.0); Hemoglobin 13.4 g/dL (12.0-15.0); Immature Granulocyte Absolute 0.06 K/mm3 (0.00-0.031); Immature Granulocyte Percent A 0.8 % (0-0.5); Lymphocytes Absolute Auto 1.37 K/mm3 (0.9-3.2); Lymphocytes Percent Auto 17.5 % (18.3-44.2); Mean Corpuscular HGB Conc 32.5 g/dl (32-36); Mean Corpuscular Hemoglobin 30.1 pg (26-34); Mean Corpuscular Volume 92.6 fl (80-100); Mean Platelet Volume 10.5 fl (7.4-10.4); Monocytes Absolute Auto 0.8 K/mm3 (0.1-0.6); Monocytes Percent Auto 9.8 % (2.6-8.5); Neutrophils Absolute Auto 5.4 K/mm3 (1.3-6.7); Neutrophils Percent Auto 68.2 % (45.5-73.1); Platelet Count Result 233 k/mm3 (150-375); Red Blood Count 4.45 M/mm3 (4.2-5.4); Red Cell Distribution Width 13.9 % (11.5-14.5); White Blood Count 7.9 K/mm3 (4.5-10.0)
[2024-05-29 06:49] LABS: Alanine Aminotransferase 16 U/L (6-35); Alkaline Phosphatase 76 U/L (38-126); Anion Gap 9 mmol/L (4-12); Aspartate Amino Transferase 16 U/L (14-36); Bilirubin,Total 0.6 mg/dL (0.2-1.3); Blood Urea Nitrogen 23 mg/dL (7-17); Calcium 9.4 mg/dL (8.4-10.2); Carbon Dioxide 22 mmol/L (22-30); Chloride 107 mmol/L (98-107); Estimated Glomerular Filt Rate 56; Glucose 135 mg/dL (65-110); Magnesium 2.1 mg/dL (1.6-2.3); Potassium 3.8 mmol/L (3.4-5.0); Sodium 138 mmol/L (137-145)
[2024-05-29 07:44] LABS: Glucose Point of Care 158 mg/dl (65-105)
[2024-05-29] MEDS: LOSARTAN POTASSIUM 50 MG TABLET PO (10:00)
[2024-05-29] MEDS: amLODIPine BESYLATE 10 MG TABLET PO (10:01)
[2024-05-29] MEDS: hydrALAZINE HCL 25 MG TABLET 50 MG PO ×2 (10:01→15:32)
[2024-05-29] MEDS: SENNA/DOCUSATE SODIUM TABLET 1 TAB PO ×2 (10:01→17:26)
[2024-05-29] MEDS: polyethylene glycoL 3350 17 GM POWD.PACK PO (10:02)
[2024-05-29] MEDS: ACETAMINOPHEN 325 MG TABLET 650 MG PO (10:17)
--- NOTE | 2024-05-29 10:38 | WPDNEUROPN ---
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 The right leg is showing minimal improvement. Heart is still continues to be a challenge since this morning her heart is okay however yesterday was down at 47. This is being followed by the hospitalist team and word processor. Her blood pressure has been controlled. Subjective Date/time seen: 05/29/24 10:38 Interval history: Patient Is 63-year-old white female with history of left basal ganglia bleed on 04/25/2024 resulting in right hemiplegia and bradykinesia was seen for follow-up. she continues to be weak on the right side of the body but right leg is showing some improvement. She is working with physical therapist now. Her heart rate has been fluctuating at this is being followed up. she has diabetes mellitus Review of Systems Review of Systems: All systems reviewed & are unremarkable except as noted in HPI and below Exam Narrative: fully conscious alert or oriented to self time place and person. Very pleasant and cooperative. Cranial nerves in the testing intact. Motor system power grade 2/5 in the right upper limb and increased tone was noted. Right lower limb power grade 3/5. Deep tendon reflexes are brisk on the right than left side. Involuntary movements are seen. Objective Data Vital Signs Vital Signs: Vital Signs - 24 hr 05/28/24 12:00 05/28/24 12:00 05/28/24 16:00 Temperature 97.9 F 97.6 F Pulse Rate 100 88 85 Respiratory Rate 16 16 Blood Pressure 143/87 H 152/90 H Pulse Oximetry 99 100 Oxygen Delivery 05/28/24 16:00 05/28/24 22:40 05/29/24 01:25 Temperature 97.3 F L 96 F L Pulse Rate 98 80 87 Respiratory Rate 26 H 18 Blood Pressure 185/85 H 163/78 H Pulse Oximetry 96 99 Oxygen Delivery 05/28/24 20:00 05/29/24 00:00 05/29/24 04:00 Temperature Pulse Rate 91 78 76 Respiratory Rate Blood Pressure Pulse Oximetry Oxygen Delivery 05/29/24 05:50 05/29/24 06:51 05/29/24 08:00 Temperature 98.7 F 97.5 F L Pulse Rate 78 85 47 L Respiratory Rate 16 18 Blood Pressure 174/95 H 172/90 H 160/96 H Pulse Oximetry 98 100 Oxygen Delivery 05/29/24 08:50 05/29/24 10:00 Temperature Pulse Rate 60 Respiratory Rate 16 Blood Pressure 173/93 H Pulse Oximetry 97 Oxygen Delivery Room Air Intake/Output Intake/Output: Intake & Output 05/26/24 05/27/24 05/28/24 05/29/24 23:59 23:59 23:59 23:59 Intake Total 970 1380 830 440 Output Total 8578 198 3878 300 Balance -80 1180 -670 140 Meds/Results Medications: Active Medications Generic Name Dose Route Start Last Admin Trade Name Freq PRN Reason Stop Dose Admin Acetaminophen 650 mg 05/23/24 16:37 05/29/24 10:17 Acetaminophen 325 Mg Tablet PO 650 mg Q4H PRN Administration Mild Pain (1-3) or Fever Amlodipine Besylate 10 mg 05/24/24 09:00 05/29/24 10:01 Amlodipine Besylate 10 Mg Tablet PO 10 mg DAILY ANGELINA Administration Dextrose 12.5 gm 05/23/24 16:42 Dextrose 50% 25 Gm/50 Ml Syringe IV PUSH PRN PRN Hypoglycemia Protocol Enoxaparin Sodium 40 mg 05/24/24 09:00 05/24/24 09:07 Enoxaparin 40 Mg/0.4 Ml Syringe SUB-Q 40 mg DAILY ANGELINA Administration Glucagon 1 mg 05/23/24 16:42 Glucagon For Inj 1 Mg Vial IM PRN PRN Hypoglycemia Protocol Glucose 15 gm 05/23/24 16:42 Glucose Oral Gel 15 Gm Of Glucse I
--- NOTE | 2024-05-29 11:08 | PCNFU ---
Nutrition Follow-Up Complete: Moderate protein calorie malnutrition related to chronic stroke, as evidenced by weight loss 6%/1 month; poor intakes <75% needs >1 month; moderate muscle wasting and fat loss. Goal:Improve PO intake to at least 50% meals and supplements Maintain weight Pt meeting goals. Continue with same goals. Pt current nutrition is Diabetic, soft and bite sized level 6, glucerna shakes BID. Nutrition recommendation: continue with current plan of care Last recorded weight is 48 kg. Bowel Motility: +BM 05/28 Labs Reviewed: GFR:56, BUN:23, Glu:158 Meds Noted: lovenox, novolog Skin: no skin issues noted Additional Notes: Pt continues on a soft and bite sized level 6 diabetic diet, intake 100% at this time. Glucerna shakes BID in place. Agree with orders, encourage po intake. Monitoring intakes, weights, labs, supplement tolerance, plan of care Follow up in 7 days
[2024-05-29 11:09] LABS: Glucose Point of Care 220 mg/dl (65-105)
[2024-05-29 11:13] LABS: Cholesterol 161 mg/dL (0-200); HDL Direct 40 mg/dL; Triglycerides 176 mg/dL (<150)
[2024-05-29 11:24] LABS: LDL Cholesterol Direct 66 mg/dL
[2024-05-29 11:35] LABS: Vitamin D 25 Hydroxy 27.5 ng/mL
[2024-05-29] MEDS: INSULIN ASPART (*BKC) 100 UNITS/ML SUB-Q (12:37)
--- NOTE | 2024-05-29 12:56 | PM.DS ---
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: Onset Date: 04/26/24 Code(s): I62.9 - Nontraumatic intracranial hemorrhage, unspecified Status: Acute (6) Dysphagia as late effect of cerebrovascular accident (CVA): Code(s): I69.391 - Dysphagia following cerebral infarction Status: Acute (7) Hypertension: Qualifiers: Hypertension type: primary hypertension Qualified Code(s): I10 - Essential (primary) hypertension Code(s): I10 - Essential (primary) hypertension Status: Acute DS: Summary Hospital Course Hospital Course: This is a 63-year-old female who presents to the ER for low heart rate from [place] [facility] carvedilol and was held however had additional episode of bradycardia at therapy which prompted her to come in for evaluation again. She also reported some chest pain. Denies any shortness of breath or lower extremity edema. Recent history of intraparenchymal hemorrhage was treated at [facility]. She was given a dose of atropine by EMS in route. Patient remained in sinus rhythm during her stay in ER. Laboratory evaluation showed his creatinine 1.2 EKG showed sinus tachycardia upon arrival. Cardiology was consulted. Noted significant periods of marked bradycardia with heart rate in upper 30s and low 40s. Carvedilol on hold. No pacemaker implantation per Cardiology. Has no significant pauses and no evidence of AV node dysfunction. Neurology on board for history of intraparenchymal bleed CT head with resolving bleed. Brain MRI 05/26/2024 with 2.5 x 2 cm leak face hematoma at the left basal ganglia. Type 2 diabetes on metformin at home which will be resumed at discharge Symptomatic bradycardia this has resolved Right hemiplegia dysphagia Hypertension adjust medication up titrate hydralazine and continue to monitor on outpatient basis DVT prophylaxis SCDs code status full code Time Spent with Patient Time attestation: Total time spent providing and/or coordinating discharge services: 35 minutes Exam Narrative: GENERAL: Well-appearing, well-nourished, and in no acute distress. HEAD: Normocephalic, atraumatic. EYES: PERRLA and EOMI. ENT: Nares clear, no rhinorrhea or epistaxis. Mucous membranes moist. NECK: Supple. No adenopathy or masses. No carotid bruits or JVD CHEST: Clear to auscultation. No respiratory distress. No wheezes rales or rhonchi HEART: Regular rate and rhythm. No murmur heard. Normal peripheral pulses. ABDOMEN: Soft, nontender, nondistended, normal active bowel sounds. EXTREMITIES: Normal range of motion. No edema. SKIN: Warm, dry, no rash. NEURO: Right hemiplegia Alert and oriented x3. PSYCH: Normal mood and affect DS: Data Data Completed and Pending Labs on day of discharge: Labs from last 24 hours 05/29/24 05/29/24 05/29/24 11:06 07:35 06:26 WBC 7.9 RBC 4.45 Hgb 13.4 Hct 41.2 MCV 92.6 MCH 30.1 MCHC 32.5 RDW 13.9 Plt Count 233 MPV 10.5 H Immature Gran % (Auto) 0.8 H Neut % (Auto) 68.2 Lymph % (Auto) 17.5 L Rabun % (Auto) 9.8 H Eos % (Auto) 2.9 Baso % (Auto) 0.8 Lymph # (Auto) 1.37 Rabun # (Auto) 0.8 H Eos # (Auto) 0.2 Baso # (Auto) 0.1 Abs Immat Gran (auto) 0.06 H Absolute Neuts (auto) 5.4 Absolute Nucleated RBC 0.000 Nucleated RBC % 0.0 Sodium 138 Potassium 3
[2024-05-29 16:51] LABS: Glucose Point of Care 181 mg/dl (65-105)
[2024-05-29 18:00] LABS: SARS-CoV-2 RNA PCR Negative (Negative)
== END 2024-05-29 18:30 | DRG 201 ==
LOC: ANHED 14:29 → ANHIMU 16:05 → ANH3MEDSUR 05-28 16:22
PROVIDERS: Emergency Medicine; Internal Medicine; Nurse Practitioner Gerontology; Psychiatry & Neurology Neurology; Admitting Provider Internal Medicine; Emergency Provider Physician Assistant; Visit Provider Internal Medicine
DX: R00.1 Bradycardia, unspecified (principal); R07.9 Chest pain, unspecified; I10 Essential (primary) hypertension; I69.391 Dysphagia following cerebral infarction; R13.10 Dysphagia, unspecified; I69.351 Hemiplegia and hemiparesis following cerebral infarction affecting right dominant side; I69.322 Dysarthria following cerebral infarction; E11.65 Type 2 diabetes mellitus with hyperglycemia; K59.00 Constipation, unspecified; R26.9 Unspecified abnormalities of gait and mobility; F41.9 Anxiety disorder, unspecified; Z20.822 Contact with and (suspected) exposure to COVID-19; Z11.52 Encounter for screening for COVID-19; Z87.891 Personal history of nicotine dependence; E44.0 Moderate protein-calorie malnutrition; Z68.21 Body mass index [BMI] 21.0-21.9, adult
CPT/HCPCS: 36415; 36600; 70450; 70553; 71046; 80048; 80051; 80053; 80061; 82140; 82306; 82607; 82746; 82805; 82948; 83605; 83690; 83735; 84100; 84484; 85018; 85025; 85027; 85610; 85730; 87635; 93005; 93306; 96360; 96361; 96374; 96376; 97110; 97161; 97165; 97530; 99285; A9270; A9577; G0378; G0379; J0360; J1650; J1815; J7030; J7040

== ENCOUNTER 2024-10-05 01:20 | Inpatient (IN) | payer OTHER, SELFPAY ==
[2024-10-05] VITALS (16 sets, daily range): BP systolic 147–187; BP diastolic 89–115; PULSE 58–127; RESP 12–22; TEMP 36.4–37.8; O2SAT 95–100; BMI 18.3
--- NOTE | ~2024-10-05 | MR_ITS ---
EXAMINATION: MRA abdomen wo/w con, MRA pelvis wo/w con DATE: 10/05/2024 11:07 INDICATION: Diffuse abdominal pain with concern for ischemia TECHNIQUE: Magnetic resonance angiography (MRA) of the abdomen and pelvis was performed without and with 8 mL Mu ltihance intravenous contrast. Sequences included axial and coronal 2-D FIESTA, 3-D Inhance inflow IR and pre and postcontrast coronal CEMRA fat sat sequences were performed. COMPARISON: CT dated 10/05/2024 FINDINGS: The abdominal aorta is normal in caliber with no stenosis, aneurysm or dissection. No evident stenosi s along the celiac axis, superior mesenteric artery, bilateral renal and bilateral common and externa lly iliac arteries. This includes a small accessory left renal artery which supplies the lower pole o f the left kidney. The inferior mesenteric artery enhance with contrast but is too small in caliber t o assess for stenosis on the MR images. No stenosis was evident on the contrast enhanced CT performed earlier in the morning. Heart size is normal. No pericardial or pleural effusion. Liver, gallbladder, spleen, pancreas, bilat eral adrenal glands and kidneys are normal. Bowels are normal in caliber with no obstruction. No path ologically enlarged abdominal or pelvic lymphadenopathy. Moderate thoracic spondylosis. IMPRESSION: 1. Unremarkable MR angiogram with no hemodynamically significant stenosis of the abdominal aorta and its major branch arteries. Reviewed, dictated and finalized at location A. NOMIST IMPRESSION: 1. Unremarkable MR angiogram with no hemodynamically significant stenosis of th e abdominal aorta and its major branch arteries.
--- NOTE | ~2024-10-05 | US_ITS ---
EXAM: ABDOMEN ULTRASOUND HISTORY: sudden onset of abd pain COMPARISON: Reference is made to a CTA of the chest abdomen and pelvis dated 10/05/2024 FINDINGS: LIVER: The liver is unremarkable in echogenicity and size measuring 13cm in longitudinal dimension. The surface of the liver is smooth. The portal vein is patent demonstrating hepatopedal flow. GALLBLADDER: The gallbladder is distended and contains multiple echogenic foci (consistent with gallb ladder calculi) likely adherent to the mondragon. As well as internal echoes, possibly sludge. Gallbladder wall thickening is identified at 4 mm. Pericholecystic fluid is also detected. These findings are consistent with acute cholecystitis, for which clinical correlation is needed.. BILE DUCTS: Common bile duct measures 5.1mm. PANCREAS: Limited evaluation of the pancreas secondary to overlying bowel gas SPLEEN: The spleen is unremarkable in echogenicity and size measuring 10cm in longitudinal dimension. RIGHT KIDNEY: 9.1 cm. In length. No hydronephrosis or bulky renal calculi. LEFT KIDNEY: 9.4cm in length. No hydronephrosis or renal calculi. VASCULATURE : The abdominal aorta is nonaneurysmal. The IVC is patent. IMPRESSION: Findings within the gallbladder suggesting acute cholecystitis, in the appropriate clinical setting, as detailed above. Evaluation of the pancreas is limited by overlying bowel gas. Reviewed, dictated and finalized at location A. LLIGENCE CLERK IMPRESSION: Findings within the gallbladder suggesting acute cholecystitis, in the appropri ate clinical setting, as detailed above. Evaluation of the pancreas is limited by overlying bowel gas.
--- NOTE | ~2024-10-05 | CT_ITS ---
Clinical Indication: Chest pain, abdominal pain, back pain CT Scan of the Chest, Abdomen, and Pelvis with Contrast: Technique: Contiguous sections were acquired throughout the chest, abdomen, and pelvis after intraven ous administration of 100 cc of Omnipaque 350. Dose reduction technique was used on this scan by [employer]i [employer] automated exposure control and iterative reconstruction technique. The dose-length product (DL P) was 335.29 mGy-cm. Findings: There is no evidence of any significant mediastinal, hilar or axillary lymphadenopathy. The mediastin al soft tissues appear normal. No aortic aneurysm or dissection seen. No pulmonary embolus seen. There is no evidence of pleural or pericardial effusion. The lungs are clear. No pulmonary nodules or infiltrates are noted. There is diffuse hepatic steatosis. The spleen, pancreas, gallbladder, adrenals and kidneys are withi n normal limits. No evidence of abdominal aortic aneurysm or dissection. No lymphadenopathy. No bowel obstruction or bowel wall thickening. There is no evidence to suggest acute appendicitis. Urinary bladder is unremarkable. No pelvic mass seen. No ascites. Impression: No acute abnormalities seen. Diffuse hepatic steatosis. Reviewed, dictated and finalized at [facility]. S REVIEW NURSE Impression: No acute abnormalities seen. Diffuse hepatic steatosis.
--- NOTE | ~2024-10-05 | US_ITS ---
Pelvic ultrasound. Clinical History: Torsion, pelvic pain Technique: Realtime transabdominal scanning of the pelvis was performed. Color flow Doppler and Doppl er spectral analysis were performed. Findings: The uterus is anteverted it, and measures 7.9 x 2.3 x 2.4 cm. The endometrial stripe has a thickness of 3 mm. No focal mass is identified. The right ovary measures 2.2 x 1.2 x 1.3 cm. No significant right ovarian or adnexal mass is seen. The left ovary measures 2.8 x 1.3 x 1.8 cm. No significant left ovarian or adnexal mass is seen. Vascular flow present in both ovaries on Doppler spectral analysis. There is no evidence of free fluid in the cul de sac. Impression: Unremarkable pelvic ultrasound. No evidence for torsion. Reviewed, dictated and finalized at [facility]. EL MOTOR MECHANIC Impression: Unremarkable pelvic ultrasound. No evidence for torsion.
--- OUTSIDE RECORDS SUMMARY | 2024-10-05 01:23 | XMS_ITS | Continuity of Care Document ---
Author Organization [facility] Address [address] [place] [address] [place] [address] Phone Care Team Providers Care Industrial Sewer Name Role Phone Sven Luther MD Unavailable Unavailable Allergies, Adverse Reactions, Alerts Substance Reaction Status Criticality No Known Allergies Active No Inform ation Medications Medication Instructions Dosage Effective Dates (start - stop) Status Comments hydrocodone 5 mg-acetaminophen 325 mg tablet take 1 tablet by oral route 2 times every day as needed 1 tablet - Active PRN for nilda, avoid driving or operate machines Pepcid 40 mg tablet take 1 tablet by oral route every day 40 MG - Active losartan 100 mg tablet take 1 tablet by oral route every day 100 MG - Active cyclobenzaprine 10 mg tablet take 1 tablet by oral route every bedtime as needed 10 MG - Active avoid driving or operate machines, PRN for pain Amaryl 4 mg tablet take 1 tablet by oral route 2 times every day 4 MG - Active Zocor 20 mg tablet take 1 tablet by oral route every day in the evening 20 MG - Active Vitamin D2 1,250 mcg (50,000 unit) capsule take 1 capsule by oral route every week - Active Toprol XL 50 mg tablet,extended release take 1 tablet by oral route every day 50 MG - Active Procedures Procedure Date OFFICE/OUTPATIENT VISIT, EST OFFICE/OUTPATIENT VISIT, EST OFFICE/OUTPATIENT VISIT, EST OFFICE/OUTPATIENT VISIT, EST PREV VISIT, EST, AGE 40-64 OFFICE/OUTPATIENT VISIT, EST OFFICE/OUTPATIENT VISIT, EST OFFICE/OUTPATIENT VISIT, EST OFFICE/OUTPATIENT VISIT, EST PREV VISIT, EST, AGE 40-64 OFFICE/OUTPATIENT VISIT, EST OFFICE/OUTPATIENT VISIT, EST OFFICE/OUTPATIENT VISIT, EST OFFICE/OUTPATIENT VISIT, EST PREV VISIT, EST, AGE 40-64 OFFICE/OUTPATIENT VISIT, EST OFFICE/OUTPATIENT VISIT, EST OFFICE/OUTPATIENT VISIT, EST OFFICE/OUTPATIENT VISIT, EST OFFICE/OUTPATIENT VISIT, EST PREV VISIT, EST, AGE 40-64 OFFICE/OUTPATIENT VISIT, EST OFFICE/OUTPATIENT VISIT, EST OFFICE/OUTPATIENT VISIT, EST OFFICE/OUTPATIENT VISIT, EST OFFICE/OUTPATIENT VISIT, EST OFFICE/OUTPATIENT VISIT, EST OFFICE/OUTPATIENT VISIT, EST PREV VISIT, EST, AGE 40-64 OFFICE/OUTPATIENT VISIT, EST OFFICE/OUTPATIENT VISIT, EST PREV VISIT, NEW, AGE 40-64 Advance Directives Directive Yes / No Effective Date File Name No Information Encounters Encounter Description Practice Location Reason(s) For Visit Diagnoses Date Provider Providers Copied on Encounter OFFICE/OUTPA TIENT VISIT, EST [facility], [address] [place], [address], [place] tel:[phone] [facility] sick1 (chief complaint) pain (chief complaint) GERD1 (chief complaint) HTN (chief complaint) Viral infectionAbdominal painGERD w/o esophagitisEssentia l (primary) hypertensionChronic pain syndrome 1 Ashkan Carpenter [address] [place], [address] , [place]. [phone] OFFICE/OUTPA TIENT VISIT, EST [facility], [address], [place], [place], [address], [place] tel:[phone] [facility] HTN (chief complaint) GERD1 (chief complaint) pain (chief complaint) Chronic pain syndromeEssential (primary) hypertensionGERD w/o esophagitis 1 Ashkan Carpenter [address], [place], [place], [address] , [place]. tel: [phone] OFFICE/OUTPA TIENT VISIT, [facility], [place], [address], [place], [place], [address], [place] tel:[phone] [facility] HLP (chief complaint) osteopenia 1 (chief complaint) HTN (chief complaint) DM (chief complaint) pain (chief complaint) polycyther mia1 (chief complaint) GERD w/o esophagitisEssentia l (primary) hypertensionHyperli pidemiaSecondary polycythemiaType 2 diabetes mellitus with diabetic nephropathyChronic pain syndromeOth disrd of bone density and structure, multiple sites 1 Ashkan Carpenter [address], [place], [place], [address] , [place]. tel: [phone] OFFICE/OUTPA TIENT VISIT, [facility], [place], [address], [place], [place], [address], [place] tel:[phone] [facility] HTN (chief complaint) HLP (chief complaint) polycythem ia1 (chief complaint) DM (chief complaint) pain1 (chief complaint) GERD1 (chief complaint) Essential (primary) hypertensionType 2 diabetes mellitus with diabetic nephropathySecondar y polycythemiaHyperli pidemiaGERD w/o esophagitisChronic pain syndrome 0 Ashkan Carpenter [address], [place], [place], [address] , [place]. [phone] PREV VISIT, EST, AGE 40-64 [facility], [address], [place], [place], [address], [place] tel:[phone] [facility] physical (chief complaint) Encntr for general adult medical exam w/o abnormal findings 0 Ashkan Carpenter [address], [place], [place], [address] , [place]. [phone] OFFICE/OUTPA TIENT VISIT, [facility], [place], [address], [place], [place], [address], [place] tel:[phone] [facility] pain (chief complaint) GERD1 (chief complaint) HTN (chief complaint) breast1 (chief complaint) GERD w/ esophagitisChronic pain syndromeEssential (primary) hypertensionEncount er for oth screening for malignant neoplasm of breast 0 Ashkan Carpenter [address], [place], [place], [address] , [place]. tel:[phone] OFFICE/OUTPA TIENT VISIT, [facility], [place], [address], [place], [place], [address], [place] tel:[phone] [facility] osteopenia 1 (chief complaint) DM (chief complaint) lymph1 (chief complaint) pain1 (chief complaint) dysphagia1 (chief complaint) Type 2 diabetes mellitus without complicationsLympha denopathyChronic pain syndromeGERD w/ esophagitisOth disrd of bone density and structure, multiple sites 9 Ashkan [address], [place], [place], [address] , [place]. tel:[phone] OFFICE/OUTPA TIENT VISIT, [facility], [place], [address] [place], [address], [place] tel:[phone] [facility] chroinc pain1 (chief complaint) HLP (chief complaint) DM (chief complaint) lice (chief complaint) weight loss1 (chief complaint) lymphnode1 (chief complaint) HyperlipidemiaLymph adenopathyAbnormal weight lossChronic pain syndromeType 2 diabetes mellitus without complicationsHead-l ouse infestation 9 Ashkan Carpenter [address], [place], [place], [address] , [place]. [phone] Referring Provider: Janes Ta A, [place], [address]. tel:[phone] OFFICE/OUTPA TIENT VISIT, EST [facility], [address], [place], [place], [address], [place] tel:[phone] [facility] DM (chief complaint) chronci pain (chief complaint) HTN (chief complaint) lymph1 (chief complaint) Type 2 diabetes mellitus without complicationsEssent ial (primary) hypertensionChronic pain syndromeLymphadenop athy 9 Ashkan Machuca. [address], [place], [place], [address] , [place]. [phone] PREV VISIT, EST, AGE 40-64 [facility], [address], [place], [place], [address], [place] tel:[phone] [facility] Medicine PHysical (chief complaint) Encounter for general adult medical exam w abnormal findingsGERD w/o esophagitisOth disrd of bone density and structure, multiple sitesHyperlipidemia Type 2 diabetes mellitus without complicationsChroni c pain syndromeLymphadenop athy 9 Ashkan Machuca. [address], [place], [place], [address] , [place]. [phone] Referring Provider: Janes [address], [place], [place], [address]. tel:[phone] OFFICE/OUTPA TIENT VISIT, EST [facility], [address], [place], [place], [address], [place] tel:[phone] [facility] HTN (chief complaint) HLP (chief complaint) GERD1 (chief complaint) DM (chief complaint) neck pain1 (chief complaint) Essential (primary) hypertensionGERD w/o esophagitisHyperlip idemiaChronic pain syndromeType 2 diabetes mellitus without complications 9 Ashkan Machuca. [address], [place], [place], [address] , [place]. [phone] Referring Provider: Janes [address], [place], [place], [address]. tel:[phone] OFFICE/OUTPA TIENT VISIT, EST [facility], [address] [place], [address], [place] tel:[phone] [facility] dysphagia1 (chief complaint) neck pain1 (chief complaint) HLP (chief complaint) HTN (chief complaint) HyperlipidemiaType 2 diabetes mellitus without complicationsDyspha giaEssential (primary) hypertensionChronic pain syndromeEncounter for screening for osteoporosisEncount er for oth screening for malignant neoplasm of breast 8 Ashkan Machuca. [address], [place], [place], [address] , [place]. tel:[phone] Referring Provider: Janes Ta [facility] A, [place], [place], [address]. tel:[phone] OFFICE/OUTPA TIENT VISIT, EST [facility], [address] [place], [address], [place] tel:[phone] [facility] DM (chief complaint) nec pain1 (chief complaint) HLP (chief complaint) tobacco1 (chief complaint) weight loss1 (chief complaint) Type 2 diabetes mellitus without complicationsAbnorm al weight lossMixed hyperlipidemiaChron ic pain syndromeTobacco use 8 Ashkan Carpenter [address], [place], [place], [address] , [place]. tel:[phone] Referring Provider: Janes [address], [place], [place], [address]. tel:[phone] PREV VISIT, EST, AGE 40-64 [facility], [address], [place], [place], [address], [place] tel:[phone] [facility] PHysial (chief complaint) Encounter for general adult medical exam w abnormal findingsTachycardia GERD w/o esophagitisType 2 diabetes mellitus without complicationsEssent ial (primary) hypertension Nov-2 0 8 Ashkan Carpenter [address], [place], [place], [address] , [place]. tel:[phone] Referring Provider: Janes [address], [place], [place], [address]. tel:[phone] OFFICE/OUTPA TIENT VISIT, [facility], [place], [address], [place], [place], [address], tel:[phone] [facility] DM (chief complaint) HTN (chief complaint) renal stone1 (chief complaint) tachycardi a1 (chief complaint) GERD1 (chief complaint) neck pain1 (chief complaint) Essential (primary) hypertensionType 2 diabetes mellitus without complicationsTachyc ardiaGERD without esophagitis 8 Ashkan Machuca. [address], [place], [place], [address] , [place]. tel:[phone] Referring Provider: Janse Ta [address], [place], [place], [address]. tel:[phone] OFFICE/OUTPA TIENT VISIT, [facility], [place], [facility] [address] [place], [address], [place] tel:[phone] [facility] flank pain1 (chief complaint) KCL (chief complaint) polycythem ia1 (chief complaint) weight loss1 (chief complaint) tachycardi a1 (chief complaint) Abnormal weight lossTachycardiaRena l stoneAbnormal EKG 8 Ashkan Carpenter [address], [place], [place], [address] , [place]. tel:[phone] Referring Provider: Janes Ta [address], [place], [place], [address]. tel:[phone] OFFICE/OUTPA TIENT VISIT, [facility], [place], [address] [place], [address], [place] tel:[phone] [facility] HTN (chief complaint) neck pain1 (chief complaint) DM (chief complaint) Mixed hyperlipidemiaEssen tial (primary) hypertensionType 2 diabetes mellitus without complications 7 Ashkan Machuca. [address], [place], [address] , [place]. [phone] Referring Provider: Janes [address], [place], [place], [address]. tel:[phone] OFFICE/OUTPA TIENT VISIT, EST [facility], [address], [place], [place], [address], [place] [phone] [facility] HLP (chief complaint) HTN (chief complaint) GERD1 (chief complaint) neck pain1 (chief complaint) DM (chief complaint) Type 2 diabetes mellitus without complicationsEssent ial (primary) hypertensionMixed hyperlipidemiaGERD without esophagitis 7 Ashkan Machuca. [address], [place], [place], [address] , [place]. tel:[phone] Referring Provider: Janes [address], [place], [place], [address]. tel:[phone] PREV VISIT, EST, AGE 40-64 [facility], [address], [place], [place], [address], [place] tel:[phone] [facility] PHysical (chief complaint) Encounter for general adult medical exam w abnormal findingsMixed hyperlipidemiaEssen tial (primary) hypertensionPain in right shoulder 7 Ashkan Machuca. [address], [place], [place], [address] , [place]. [phone] Referring Provider: Janes Ta [address], [place], [place], [address]. tel:[phone] OFFICE/OUTPA TIENT VISIT, [facility], [place], [address], [place], [place], [address], [place] tel:[phone] [facility] DM (chief complaint) HLP (chief complaint) HTN (chief complaint) GERD1 (chief complaint) Essential (primary) hypertensionMixed hyperlipidemiaType 2 diabetes mellitus without complicationsRenal disease 6 Ashkan Machuca. [address], [place], [place], [address] , [place]. [phone] Referring Provider: Janes Ta [address], [place], [place], [address]. tel:[phone] OFFICE/OUTPA TIENT VISIT, [facility], [place], [address], [place], [place], [address], [place] tel:[phone] [facility] cough1 (chief complaint) Acute bronchitis Apr- 6 Ashkan Machuca. [address], [place], [place], [address] , [place]. tel:[phone] Referring Provider: Janes [address], [place], [place], [address]. tel:[phone] OFFICE/OUTPA TIENT VISIT, [facility], [place], [facility] [address], [place], [place], [address], [place] tel:[phone] [facility] DM (chief complaint) HTN (chief complaint) GERD1 (chief complaint) renal disease1 (chief complaint) neck pain1 (chief complaint) Renal diseaseMixed hyperlipidemiaEssen tial (primary) hypertensionGERD without esophagitis Feb- 6 Ashkan Machuca. [address], [place], [place], [address] , [place]. [phone] Referring Provider: Janes Ta [address], [place], [place], [address]. tel:[phone] OFFICE/OUTPA TIENT VISIT, [facility], [place], [address], [place], [place], [address], [place] tel:[phone] [facility] DM (chief complaint) renal disease (chief complaint) neck pain1 (chief complaint) GERD1 (chief complaint) Renal diseaseType 2 diabetes mellitus without complicationsCervic algiaGERD w/o esophagitis Nov-0 6 Ashkan Machuca. [address], [place], [place], [address] , [place]. tel:[phone] Referring Provider: Janes Ta [address], [place], [place], [address]. tel:[phone] OFFICE/OUTPA TIENT VISIT, [facility], [place], [address], [place], [place], [address], [place] tel:[phone] [facility] DM (chief complaint) renal diseas (chief complaint) HLP (chief complaint) GERD1 (chief complaint) Mixed hyperlipidemiaRenal diseaseType 2 diabetes mellitus without complications Oct-0 6 Ashkan Machuca. [address], [place], [place], [address] , [place]. tel:[phone] Referring Provider: Sven Luther, [address], [place], [place], [address]. tel:[phone] OFFICE/OUTPA TIENT VISIT, EST [facility], [address], [place], [place], [address], [place] tel:[phone] [facility] DM1 (chief complaint) HLP1 (chief complaint) GERD1 (chief complaint) Type 2 diabetes mellitus without complicationsMixed hyperlipidemiaGERD without esophagitisEncounte r for screening for osteoporosis 5 Ashkan Machuca. [address], [place], [place], [address] , [place]. [phone] Referring Provider: Janes Ta [address], [place], [place], [address]. tel:[phone] PREV VISIT, EST, AGE 40-64 [facility], [address], [place], [place], [address], [place] tel:[phone] [facility] PHysical (chief complaint) Dietary surveillance and counselingRoutine general medical examination at a health care facility 5 Ashkan Machuca. [address], [place], [place], [address] , [place]. tel:[phone] Referring Provider: Janes [address], [place], [place], [address]. tel:[phone] OFFICE/OUTPA TIENT VISIT, EST [facility], [address], [place], [place], [address], [place] tel:[phone] [facility] HLP (chief complaint) glucose (chief complaint) toe infection (chief complaint) Unspecified essential hypertensionGERD - Gastro-esophageal reflux diseaseParonychia of toeOther and unspecified hyperlipidemia 5 Ashkan Machuca. [address], [place], [place], [address] , [place]. [phone] Referring Provider: Sven Luther, [address] [facility] [address], [place], [place], [address]. tel:[phone] OFFICE/OUTPA TIENT VISIT, [facility], [place], [address] [place], [address], [place] [phone] [facility] HTN (chief complaint) hyperglyde tessa (chief complaint) HLP (chief complaint) GERD (chief complaint) Dietary surveillance and counselingHypertens ion, UnspecifiedHypergly cemiaOther and unspecified hyperlipidemia 4 Ashkan Carpenter [address], [place], [place], [address] , [place]. tel:[phone] Referring Provider: Janes Ta [address], [place], [place], [address]. tel:[phone] PREV VISIT, NEW, AGE 40-64 [facility], [address] [place], [address], [place] tel:[phone] [facility] Physical (chief complaint) Dietary surveillance and counselingRoutine Medical ExamRoutine Medical Exam 4 Ashkan Carpenter [address], [facility] [place], [address] , [place]. [phone] Family History Family Member Type Diagnosis Age At Onset No Information Payers Payer name Insurance type Covered alliance party ID Authoriza tion(s) No Information Social History Type Description Quantity Date Captured Comments Alcohol Use Details No Caffeine Use Details Unknown Tobacco Use Status Never smoked tobacco 2020 Smoking Status Never smoker Non-Smoking Tobacco Use Details : No Details Available : No Details Available Sex Female Vital Signs Date / Time: Height Weight BMI Pulse Rate Blood Pressure Temperature Respiratory Rate Body Surface Area Head Circumference BMI percentile Pulse Ox Inhaled Ox 1:06 PM 59.00 in 113.40 lbs 22.9 0 kg/m eter (2) 96 /min 150/92 mm[Hg] 97.9 F 18 /min Chief Complaint And Reason For Visit From encounter dated '07/23/2021 13:05'. sick1 (chief complaint). Description: Pt feels extreme fatigue, diffuse myalgia, dry and productivecough with green phlegm running nose, headache, x one week. pt denies any fever. Pt denies any lossof taste and smell. Pt notices mild sharp pain left upper quadrant under the left rib area. Pt notices dark urine as well. Pt denies any flank pain. Pt denies any sob. Pt works at [employer] and she does not want to get vaccinated for COVID. . Pt denies any UTI symptoms pain (chief complaint). Description: Pt has chronic neck pain pt denies any worsening pain pt denies any radiculopathy Pt denies any numbness or tingling. Pt has DDD. Pt doing ok with norco Pt failedNSAID. pt also takes flexeril PRn GERD1 (chief complaint). Description: Pt has chronic GERD. Pt c/o mild dysphagia. Pt denies any drooling. Pt denies any chest pain Pt denies any nausea, vomiting. Pt denies any weight loss. Pt stopped taking omeprazole for unknown reason Pt takes pepcid daily. Pt denies any abd pain Pt is noncompliant with egd HTN (chief complaint). Description: Pt has HTN. Pt takes toprol and losartan and her bp is borderline high today. Pt really is not sure if she is taking her toprol and losartan Plan Of Treatment Date Type Action Status Goal Special diet education compl eted Goal Special diet education compl eted Referral Ordered: SLEEP STUDY, ATTENDED ordered Referral Referred To: Valentín Jerome MD [address] [place], [place], [address] Ordered: Referrals: Valentín Jerome MD Evaluate and treat ordered Referral Ordered: OPERATIVE UPPER GI ENDOSCOPY ordered Referral Ordered: Lit Lopez (related to Abnormal EKG) ordered Referral Referred To: John Lit [address] [place], [place] [id number] Ordered: Referrals: Lit Lopez. Evaluate and treat ordered Referral Ordered: CHEST X-RAY PA/LAT TWO-VIEWS ordered Referral Ordered: Nephrology (related to Renal disease) ordered Referral Ordered: Referrals: Nephrology. Evaluate and treat ordered Referral Ordered: DXA BONE DENSITY, AXIAL ordered Referral Ordered: COLONOSCOPY AND BIOPSY ordered Referral Ordered: MAMMOGRAM, SCREENING ordered History Of Present Illness Encounter Date Complaint History Of Prese nt Illness GERD Pt has chronic G ERD. Pt c/o mild dysphagia. Pt denies any drooling. Pt denies any chest pain Pt denies any nausea, vomiting. Pt denies any weight loss. Pt stopped taking omeprazole for unknown reason Pt takes pepcid daily. Pt denies any abd pain Pt is noncompliant with egd pain Pt has chronic n ana maría pain pt denies any worsening pain pt denies any radiculopathy Pt denies any numbness or tingling. Pt has DDD. Pt doing ok with norco Pt failed NSAID. pt also takes flexeril PRn sick1 Pt feels extreme fatigue, diffuse myalgia, dry and productive cough with green phlegm running nose, headache, x one week. pt denies any fever. Pt denies any loss of taste and smell. Pt notices mild sharp pain left upper quadrant under the left rib area. Pt notices dark urine as well. Pt denies any flank pain. Pt denies any sob. Pt works at [employer] and she does not want to get vaccinated for COVID. . Pt denies any UTI symptoms HTN Pt has HTN. Pt t akes toprol and losartan and her bp is borderline high today. Pt really is not sure if she is taking her toprol and losartan GERD Pt has chronic G ERD Pt takes omeprazole and she still has dysphagia. Pt denies any drooling. Pt denies any chest pain Pt denies any nausea, vomiting. Pt denies any weight loss pain Pt has chronic n ana maría pain pt denies any worsening pain pt denies any radiculopathy Pt denies any numbness or tingling. Pt has DDD. Pt doing ok with norco Pt failed NSAID. pt also takes flexeril PRn HTN Pt has HTN Pt ta kes losartan and toprol and her bp is borderline today. Pt denies any chest pain or headache. Pt does not check bp at home. Pt has been skipping losartan since pharmacy lost some refill during transfer and she is out polycythermia1 Pt has polycythe tessa Pt denies any snoring or fatigue Pt did not do sleep study pain Pt has chronic n ana maría pain pt denies any worsening pain pt denies any radiculopathy Pt denies any numbness or tingling. Pt has DDD. Pt doing ok with norco Pt failed NSAID. pt also takes flexeril PRn DM Pt has DM. Pt ta kes amaryl but she only takes once per day. Pt is noncompliant Pt also does not check her glucose very much Her A1c is slightly better but not at goal. Pt denies any hypoglycemia. HTN Pt has HTN .Pt t akes toprol and losartan but she is very noncompliant and she is not taking above meds daily and she skips all the time and her bp is high today Pt denies any chest pain or headache. osteopenia1 Pt has osteopeni a. Pt takes calcium and D Pt is working on weight bearing exercise. HLP Pt has HLP Pt ta kes zocor Pt denies any myalgia. DM Pt has DM Pt sta steven that her glucose is 130. Pt denies any polyuria, polydipsia. Pt has proteinuria Her A1c is slightly worse. pain1 Pt has chronic n ana maría pain pt denies any worsening pain pt denies any radiculopathy Pt denies any numbness or tingling. Pt has DDD. Pt doing ok with norco Pt failed NSAID GERD1 Pt has GERD with esophagitis. Pt doing ok with omeprazole. pt failed pepcid Pt has daily GERD without omeprazole .pt denies any abd pain polycythemia1 Pt has polycythe tessa. Her iron and ferritin were ok. Pt does not smoke pt does snore and she feels very tired in the morning and throughout the day . HLP Pt has HLP Pt ta kes zocor. Her lipid profile is ok .Pt denies any myalgia HTN Pt takes toprol and losartan but she does not check her bp at home .Pt denies any chest pain or headache physical Pt needs annual physical pt has HTN. Pt takes toprol and losartan but she skips dose frequently Pt has osteopenia. Pt takes calcium and D. Pt does weight bearing exercise Pt has HLP Pt takes zocor Pt denies any myalgia. Pt has chronic GERD and she is doing ok with omeprazole. Pt has chronic neck pain Pt takes norco and flexeril PRn for pain and doing ok Pt denies any radiculopathy Pt denies any other complaints pain Pt has chronic n ana maría pain pt denies any worsening pain pt denies any radiculopathy Pt denies any numbness or tingling. Pt has DDD. Pt doing ok with norco Pt failed NSAID GERD1 Pt has GERD. Pt takes omeprazole and doing ok Pt had benign EGD Pt denies any GERD or abd pain or nausea, vomiting while on omeprazole. Pt has not had the need to tae zantac HTN Pt takes toprol and losartan. Her BP is borderline Pt denies any chest pain or [id number] breast1 Pt denies any br east issue ,Pt denies any breast pain nor nodule lymph1 Pt told me she h ad biopsy done by Dr. jerome around left posterior cervical lymph and was told ok. Pt states that lymph resolved pain1 Pt has chronic n ana maría pain pt denies any worsening pain pt denies any radiculopathy Pt denies any numbness or tingling. Pt has DDD. Pt doing ok with norco Pt failed NSAID dysphagia1 Pt has dysphagia and also gERD. Pt had EGD done which showed small hiatal hernia with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
--- NOTE | 2024-10-05 01:28 | ECG_ITS ---
Test Date: 2024-10-05 01:32:10 Measurements Intervals [place] Rate: 94 P: 65 [place]: 166 QRS: 32 QRSD: 108 T: 137 QT: 393 QTc: 492 Interpretive Statements SINUS RHYTHM WITHATRIAL COUPLET AND SUPRAVENTRICULAR PREMATURE COMPLEXES BORDERLINE ST-T WAVE ABNORMALITY- INF/LAT LEADS BASELINE ARTIFACT- V4, V6 ABNORMAL ECG Compared to ECG 05/25/2024 00:51:52 HEART RATE HAS INCREASED Electronically Signed On 10-05-2024 07:36:24 FILL TECHNICIAN by Lit Lopez D.O.
--- OUTSIDE RECORDS SUMMARY | 2024-10-05 01:38 | XMS_ITS | Continuity of Care Document ---
Author Organization [facility] Address [address] [place] [address] [place] [address] Phone Care Team Providers Care Rock Breaker Name Role Phone Sven Luther MD Unavailable [...] Copied on Encounter OFFICE/OUTPA TIENT VISIT, EST [facility], [address] [place], [address], [place] tel:[phone] [facility] sick1 (chief complaint) pain (chief complaint) GERD1 (chief complaint) HTN (chief complaint) Viral infectionAbdominal painGERD w/o esophagitisEssentia l (primary) hypertensionChronic pain syndrome 1 Ashkan Carpenter [address] [place], [address] , [place]. [phone] OFFICE/OUTPA TIENT VISIT, EST [facility], [address], [place], [place], [address], [place] tel:[phone] [facility] HTN (chief complaint) GERD1 (chief complaint) pain (chief complaint) Chronic pain syndromeEssential (primary) hypertensionGERD w/o esophagitis 1 Ashkan Carpenter [address], [place], [place], [address] , [place]. tel: [phone] OFFICE/OUTPA TIENT VISIT, [facility], [address], [place], [place], [address], [place] tel:[phone] [facility] HLP (chief complaint) osteopenia 1 (chief complaint) HTN (chief complaint) DM (chief complaint) pain (chief complaint) polycyther mia1 (chief complaint) GERD w/o esophagitisEssentia l (primary) hypertensionHyperli pidemiaSecondary polycythemiaType 2 diabetes mellitus with diabetic nephropathyChronic pain syndromeOth disrd of bone density and structure, multiple sites 1 Ashkan Carpenter [address], [place], [place], [address] , [place]. tel: [phone] OFFICE/OUTPA TIENT VISIT, [facility], [address], [place], [place], [address], [place] tel:[phone] [facility] HTN (chief complaint) HLP (chief complaint) polycythem ia1 (chief complaint) DM (chief complaint) pain1 (chief complaint) GERD1 (chief complaint) Essential (primary) hypertensionType 2 diabetes mellitus with diabetic nephropathySecondar y polycythemiaHyperli pidemiaGERD w/o esophagitisChronic pain syndrome 0 Ashkan Carpenter [address], [place], [place], [address] , [place]. tel:[phone] PREV VISIT, EST, AGE 40-64 [facility], [address], [place], [place], [address], [place] tel:[phone] [facility] physical (chief complaint) Encntr for general adult medical exam w/o abnormal findings 0 Ashkan Carpenter [address], [place], [place], [address] , [place]. [phone] OFFICE/OUTPA TIENT VISIT, [facility], [address], [place], [place], [address], [place] tel:[phone] [facility] pain (chief complaint) GERD1 (chief complaint) HTN (chief complaint) breast1 (chief complaint) GERD w/ esophagitisChronic pain syndromeEssential (primary) hypertensionEncount er for oth screening for malignant neoplasm of breast 0 Ashkan Carpenter [address], [place], [place], [address] , [place]. [phone] OFFICE/OUTPA TIENT VISIT, [facility], [address], [place], [place], [address], [place] tel:[phone] [facility] osteopenia 1 (chief complaint) DM (chief complaint) lymph1 (chief complaint) pain1 (chief complaint) dysphagia1 (chief complaint) Type 2 diabetes mellitus without complicationsLympha denopathyChronic pain syndromeGERD w/ esophagitisOth disrd of bone density and structure, multiple sites 9 Ashkan [address], [place], [place], [address] , [place]. [phone] OFFICE/OUTPA TIENT VISIT, [facility], [address] [place], [address], [place] tel:[phone] [facility] chroinc pain1 (chief complaint) HLP (chief complaint) DM (chief complaint) lice (chief complaint) weight loss1 (chief complaint) lymphnode1 (chief complaint) HyperlipidemiaLymph adenopathyAbnormal weight lossChronic pain syndromeType 2 diabetes mellitus without complicationsHead-l ouse infestation 9 Ashkan Carpenter [address], [place], [place], [address] , [place]. [phone] Referring Provider: Janes Ta A, [place], [place], [address]. tel:[phone] OFFICE/OUTPA TIENT VISIT, EST [facility], [address], [place], [place], [address], [place] tel:[phone] [facility] DM (chief complaint) chronci pain (chief complaint) HTN (chief complaint) lymph1 (chief complaint) Type 2 diabetes mellitus without complicationsEssent ial (primary) hypertensionChronic pain syndromeLymphadenop athy 9 Ashkan Machuca. [address], [place], [place], [address] , [place]. [phone] PREV VISIT, EST, AGE 40-64 [facility], [address], [place], [place], [address], [place] tel:[phone] [facility] PHysical (chief complaint) Encounter for general adult medical exam w abnormal findingsGERD w/o esophagitisOth disrd of bone density and structure, multiple sitesHyperlipidemia Type 2 diabetes mellitus without complicationsChroni c pain syndromeLymphadenop athy 9 Ashkan Machuca. [address], [place], [place], [address] , [place]. [phone] Referring Provider: Janes Ta [address], [place], [place], [address]. tel:[phone] OFFICE/OUTPA TIENT VISIT, EST [facility], [address], [place], [place], [address], [place] tel:[phone] [facility] HTN (chief complaint) HLP (chief complaint) GERD1 (chief complaint) DM (chief complaint) neck pain1 (chief complaint) Essential (primary) hypertensionGERD w/o esophagitisHyperlip idemiaChronic pain syndromeType 2 diabetes mellitus without complications 9 Ashkan Machuca. [address], [place], [place], [address] , [place]. [phone] Referring Provider: Janes Ta [address], [place], [place], [address]. tel:[phone] OFFICE/OUTPA TIENT VISIT, EST [facility], [address] [place], [address], [place] tel:[phone] [facility] dysphagia1 (chief complaint) neck pain1 (chief complaint) HLP (chief complaint) HTN (chief complaint) HyperlipidemiaType 2 diabetes mellitus without complicationsDyspha giaEssential (primary) hypertensionChronic pain syndromeEncounter for screening for osteoporosisEncount er for oth screening for malignant neoplasm of breast 8 Ashkan Machuca. [address], [place], [place], [address] , [place]. tel:[phone] Referring Provider: Janes Ta [facility] A, [place], [place], [address]. tel:[phone] OFFICE/OUTPA TIENT VISIT, EST [facility], [address] [place], [address], [place] tel:[phone] [facility] DM (chief complaint) nec pain1 (chief complaint) HLP (chief complaint) tobacco1 (chief complaint) weight loss1 (chief complaint) Type 2 diabetes mellitus without complicationsAbnorm al weight lossMixed hyperlipidemiaChron ic pain syndromeTobacco use 8 Ashkan Carpenter [address], [place], [place], [address] , [place]. tel:[phone] Referring Provider: Janes Ta [address], [place], [place], [address]. tel:[phone] PREV VISIT, EST, AGE 40-64 [facility], [address], [place], [place], [address], [place] tel:[phone] [facility] PHysial (chief complaint) Encounter for general adult medical exam w abnormal findingsTachycardia GERD w/o esophagitisType 2 diabetes mellitus without complicationsEssent ial (primary) hypertension Nov-2 0 8 Ashkan Carpenter [address], [place], [place], [address] , [place]. tel:[phone] Referring Provider: Janes Ta [address], [place], [place], [address]. tel:[phone] OFFICE/OUTPA TIENT VISIT, [facility], [address], [place], [place], [address], tel:[phone] [facility] DM (chief complaint) HTN (chief complaint) renal stone1 (chief complaint) tachycardi a1 (chief complaint) GERD1 (chief complaint) neck pain1 (chief complaint) Essential (primary) hypertensionType 2 diabetes mellitus without complicationsTachyc ardiaGERD without esophagitis 8 Ashkan Machuca. [address], [place], [place], [address] , [place]. [phone] Referring Provider: Janes Ta [address], [place], [place], [address]. tel:[phone] OFFICE/OUTPA TIENT VISIT, [facility], [facility] [address] [place], [address], [place] tel:[phone] [facility] flank pain1 (chief complaint) KCL (chief complaint) polycythem ia1 (chief complaint) weight loss1 (chief complaint) tachycardi a1 (chief complaint) Abnormal weight lossTachycardiaRena l stoneAbnormal EKG 8 Ashkan Carpenter [address], [place], [place], [address] , [place]. [phone] Referring Provider: Janes [address], [place], [place], [address]. tel:[phone] OFFICE/OUTPA TIENT VISIT, [facility], [address] [place], [address], [place] tel:[phone] [facility] HTN (chief complaint) neck pain1 (chief complaint) DM (chief complaint) Mixed hyperlipidemiaEssen tial (primary) hypertensionType 2 diabetes mellitus without complications 7 Ashkan Machuca. [address], [place], [place], [address] , [place]. [phone] Referring Provider: Janes [address], [place], [place], [address]. tel:[phone] OFFICE/OUTPA TIENT VISIT, EST [facility], [address], [place], [address], [place] [phone] [facility] HLP (chief complaint) HTN (chief complaint) GERD1 (chief complaint) neck pain1 (chief complaint) DM (chief complaint) Type 2 diabetes mellitus without complicationsEssent ial (primary) hypertensionMixed hyperlipidemiaGERD without esophagitis 7 Ashkan Machuca. [address], [place], [place], [address] , [place]. [phone] Referring Provider: Janes Ta [address], [place], [place], [address]. tel:[phone] PREV VISIT, EST, AGE 40-64 [facility], [address], [place], [place], [address], [place] tel:[phone] [facility] PHysical (chief complaint) Encounter for general adult medical exam w abnormal findingsMixed hyperlipidemiaEssen tial (primary) hypertensionPain in right shoulder 7 Ashkan Machuca. [address], [place], [place], [address] , [place]. [phone] Referring Provider: Janes Ta [address], [place], [place], [address]. tel:[phone] OFFICE/OUTPA TIENT VISIT, [facility], [address], [place], [place], [address], [place] tel:[phone] [facility] DM (chief complaint) HLP (chief complaint) HTN (chief complaint) GERD1 (chief complaint) Essential (primary) hypertensionMixed hyperlipidemiaType 2 diabetes mellitus without complicationsRenal disease 6 Ashkan Machuca. [address], [place], [place], [address] , [place]. [phone] Referring Provider: Janes Ta [address], [place], [place], [address]. tel:[phone] OFFICE/OUTPA TIENT VISIT, [facility], [address], [place], [place], [address], [place] tel:[phone] [facility] cough1 (chief complaint) Acute bronchitis Apr- 6 Ashkan Machuca. [address], [place], [place], [address] , [place]. tel:[phone] Referring Provider: Janes Ta [address], [place], [place], [address]. tel:[phone] OFFICE/OUTPA TIENT VISIT, [facility], [facility] [address], [place], [place], [address], [place] tel:[phone] [facility] DM (chief complaint) HTN (chief complaint) GERD1 (chief complaint) renal disease1 (chief complaint) neck pain1 (chief complaint) Renal diseaseMixed hyperlipidemiaEssen tial (primary) hypertensionGERD without esophagitis Feb- 6 Ashkan Machuca. [address], [place], [place], [address] , [place]. [phone] Referring Provider: Janes Ta [address], [place], [address]. tel:[phone] OFFICE/OUTPA TIENT VISIT, [facility], [address], [place], [address], [place] tel:[phone] [facility] DM (chief complaint) renal disease (chief complaint) neck pain1 (chief complaint) GERD1 (chief complaint) Renal diseaseType 2 diabetes mellitus without complicationsCervic algiaGERD w/o esophagitis Nov-0 6 Ashkan Machuca. [address], [place], [place], [address] , [place]. tel:[phone] Referring Provider: Janes Ta [address], [place], [place], [address]. tel:[phone] OFFICE/OUTPA TIENT VISIT, [facility], [address], [place], [address], [place] tel:[phone] [facility] DM (chief complaint) renal diseas (chief complaint) HLP (chief complaint) GERD1 (chief complaint) Mixed hyperlipidemiaRenal diseaseType 2 diabetes mellitus without complications Oct-0 6 Ashkan Machuca. [address], [place], [place], [address] , [place]. tel:[phone] Referring Provider: Sven Luther, [address], [place], [place], [address]. tel:[phone] OFFICE/OUTPA TIENT VISIT, EST [facility], [address], [place], [address], [place] tel:[phone] [facility] DM1 (chief complaint) HLP1 (chief complaint) GERD1 (chief complaint) Type 2 diabetes mellitus without complicationsMixed hyperlipidemiaGERD without esophagitisEncounte r for screening for osteoporosis 5 Ashkan Machuca. [address], [place], [address] , [place]. [phone] Referring Provider: Janes Ta [address], [place], [place], [address]. tel:[phone] PREV VISIT, EST, AGE 40-64 [facility], [address], [place], [place], [address], [place] tel:[phone] [facility] PHysical (chief complaint) Dietary surveillance and counselingRoutine general medical examination at a health care facility 5 Ashkan Machuca. [address], [place], [address] , [place]. tel:[phone] Referring Provider: Janes Ta [address], [place], [place], [address]. tel:[phone] OFFICE/OUTPA TIENT VISIT, EST [facility], [address], [place], [address], [place] tel:[phone] [facility] HLP (chief complaint) glucose (chief complaint) toe infection (chief complaint) Unspecified essential hypertensionGERD - Gastro-esophageal reflux diseaseParonychia of toeOther and unspecified hyperlipidemia 5 Ashkan Machuca. [address], [place], [address] , [place]. [phone] Referring Provider: Sven Luther, [address] [facility] [address], [place], [address]. tel:[phone] OFFICE/OUTPA TIENT VISIT, [facility], [address] [place], [address], [place] [phone] [facility] HTN (chief complaint) hyperglyde tessa (chief complaint) HLP (chief complaint) GERD (chief complaint) Dietary surveillance and counselingHypertens ion, UnspecifiedHypergly cemiaOther and unspecified hyperlipidemia 4 Ashkan Carpenter [address], [place], [address] , [place]. tel:[phone] Referring Provider: Janes Ta [address], [place], [place], [address]. tel:[phone] PREV VISIT, NEW, AGE 40-64 [facility], [address] [place], [address], [place] tel:[phone] [facility] Physical (chief complaint) Dietary surveillance and counselingRoutine Medical ExamRoutine Medical Exam 4 Ashkan Carpenter [address], [facility] [place], [address] , [place]. [phone] Family History Family Member Type Diagnosis Age At Onset No Information Payers Payer name Insurance type Covered republican ID Authoriza tion(s) No Information Social History [...] Pt denies any sob. Pt works at [employer] and she does not want to get [...] MD [address] [place], [place], [address] Ordered: Referrals: Valentín Jerome MD Evaluate and treat ordered Referral Ordered: OPERATIVE UPPER GI ENDOSCOPY ordered Referral Ordered: Lit Lopez (related to Abnormal EKG) ordered Referral Referred To: John Lit [address] [place], [place] [id number] Ordered: Referrals: Lit Lopez. Evaluate and treat ordered Referral Ordered: CHEST X-RAY PA/LAT TWO-VIEWS ordered Referral Ordered: Nephrology (related to Renal disease) ordered Referral Ordered: Referrals: Nephrology. Evaluate and treat ordered Referral Ordered: DXA BONE DENSITY, AXIAL ordered Referral Ordered: COLONOSCOPY AND BIOPSY ordered Referral Ordered: MAMMOGRAM, SCREENING ordered History Of Present Illness Encounter Date Complaint History Of Prese nt Illness GERD1 Pt has chronic G ERD. Pt c/o [...] Pt denies any sob. Pt works at [employer] and she does not want to get vaccinated for COVID. . Pt denies any UTI symptoms HTN Pt has HTN. Pt t akes toprol and losartan and her bp is borderline high today. Pt really is not sure if she is taking her toprol and losartan HTN Pt has HTN Pt ta kes losartan and toprol and her bp is borderline today. Pt denies any chest pain or headache. Pt does not check bp at home. Pt has been skipping losartan since pharmacy lost some refill during transfer and she is out GERD1 Pt has chronic G ERD Pt takes [...] failed NSAID. pt also takes flexeril PRn HLP Pt has HLP Pt ta kes zocor Pt denies any myalgia. osteopenia1 Pt has osteopeni a. Pt takes calcium and D Pt is working on weight bearing exercise. HTN Pt has HTN .Pt t akes toprol and losartan but she is very noncompliant and she is not taking above meds daily and she skips all the time and her bp is high today Pt denies any chest pain or headache. DM Pt has DM. Pt ta kes amaryl but she only takes once per day. Pt is noncompliant Pt also does not check her glucose very much Her A1c is slightly better but not at goal. Pt denies any hypoglycemia. pain Pt has chronic n ana maría pain pt denies any worsening pain pt denies any radiculopathy Pt denies any numbness or tingling. Pt has DDD. Pt doing ok with norco Pt failed NSAID. pt also takes flexeril PRn polycythermia1 Pt has polycythe tessa Pt denies any snoring or fatigue Pt did not do sleep study HTN Pt takes toprol and losartan but she does not check her bp at home .Pt denies any chest pain or headache HLP Pt has HLP Pt ta kes zocor. Her lipid profile is ok .Pt denies any myalgia polycythemia1 Pt has polycythe tessa. Her iron and ferritin were ok. Pt does not smoke pt does snore and she feels very tired in the morning and throughout the day . DM Pt has DM Pt sta steven [...] without omeprazole .pt denies any abd pain physical Pt needs annual physical pt has [...] borderline Pt denies any chest pain or [id number] breast1 Pt denies any br east issue [...] any polyuria, polydipsia. Pt denies any neuropathy chroinc pain1 Pt has chronic n ana [...] polyuria, polydipsia. 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 Pt t akes [...] akes losartan and her BP is stable tobacco1 Pt quit smoking 30 years ago ,Pt only had less than 2 pack year smoking history prior to quitting Pt denies any sob DM Pt takes amaryl. Pt has been trying low carb diet Her glucose is around 120s now. Her A1c is way improved .Pt denies any hypoglycemia Pt denies any polyuria polydipsia nec pain1 Pt has chronic n ana maría pain Pt has DDD Pt denies any radiculopathy. Pt failed NSAID Pt takes norco PRN for pain and doing ok. Pt denies any recent injury HLP Pt has mild high tG Pt takes zocor. Pt denies any myalgia Pt is trying low fat and low carb diet weight loss1 Her weight has b een stable for the past 6 months. Pt denies any GI issue .Her GERD is well controlled with zantac PHysial Pt needs annual physical. Pt has [...] that she has difficulty moving right shoulder DM Pt has DM. Pt ta kes amaryl only. Her BG is around 120s Pt denies any hypoglycemia. Pt denies any polyruia, polyidipsia HLP Pt takes zocor. .Her lipid proifle is much better. Her TG is mildly high .Pt denies any myalgia HTN Pt has HTN. .Pt takes losartan and propranolol .Her BP is stable. Pt denies any chest pain or headache GERD1 Pt takes zantac and she denies any GERD symptoms or any abd pain cough1 Pt c/o one week history of [...] denies any radiculopaathy, Pt denies any injury DM Pt has DM. Pt ta kes amaryl and she does not check her BG at all. Pt is very noncompliant. Pt flaco any hypoglycemia. renal disease Pt has renal dis ease. Pt is off feno, metfromin and omeprazole for now. Pt has appointment with nephrology next week. Pt billy any urinary output problem neck pain1 Pt [...] has 6/10 sharp pain around neck daily GERD1 Pt has not had g ERD symptoms very much lately. Pt only takes zantac PRN now. Pt rarely uses zantac DM Pt has DM. Pt ta kes metformin and amaryl. Her BG is around 150 at home per patient. Her A1c is better but her fasting glucose is over 200. Pt denies any foot numnbess renal diseas Pt has acute magda al insufficiency on lab. Pt denies any flank pain. Pt denies any urinary output problem. Pt denies any flank pain HLP Pt has elevated TG and she takes feno. Pt denies any myalgia Pt is trying low fat and low carb diet GERD1 Pt takes omepraz ole and zantac and doing ok. Pt denies any GERD symptoms as long as she is taking above meds. Pt denies any abd pain DM1 Pt has DM. Pt is taking [...] injury Instructions Date Instruction Additional Infor mation Increase activity. Related to Hy perlipidemia Follow a low sodium diet. Relate d to Hyperlipidemia Special diet education Related t o Body mass index (BMI) 24.0-24.9, adult Check blood sugar twice a day. R elated to Type 2 diabetes mellitus without complications Increase physical activity. Rela checo to Type 2 diabetes mellitus without complications Special diet education Related t o Body mass index (BMI) 24.0-24.9, adult Increase physical activity Relat ed to Encounter for general adult medical exam w abnormal findings Weight management Related to Enc ounter for general adult medical exam w abnormal findings Increase activity. Related to Es sential (primary) [...] activity Relat ed to Abnormal weight loss Increase activity. Related to Mi xed hyperlipidemia Follow a low sodium diet. Relate d to Mixed hyperlipidemia Prescribed Activity and Exercise Education Related [...] Mental Status Date Cognitive Assessment Orientation - [place] ed to time, place, person, situation.
[2024-10-05 01:40] LABS: Basophils Absolute Auto 0.1 K/mm3 (0.0-0.1); Basophils Percent Auto 0.4 % (0.2-1.2); Eosinophils Absolute Auto 0.2 K/mm3 (0-0.3); Eosinophils Percent Auto 0.8 % (0-4.4); Hematocrit 39.2 % (37.0-47.0); Hemoglobin 13.1 g/dL (12.0-15.0); Immature Granulocyte Absolute 0.15 K/mm3 (0.00-0.031); Immature Granulocyte Percent A 0.8 % (0-0.5); Lymphocytes Absolute Auto 2.43 K/mm3 (0.9-3.2); Lymphocytes Percent Auto 13.1 % (18.3-44.2); Mean Corpuscular HGB Conc 33.4 g/dl (32-36); Mean Corpuscular Hemoglobin 31.4 pg (26-34); Monocytes Absolute Auto 1.4 K/mm3 (0.1-0.6); Monocytes Percent Auto 7.5 % (2.6-8.5); Neutrophils Absolute Auto 14.3 K/mm3 (1.3-6.7); Neutrophils Percent Auto 77.4 % (45.5-73.1); Platelet Count Result 358 k/mm3 (150-375); Red Blood Count 4.17 M/mm3 (4.2-5.4); Red Cell Distribution Width 13.8 % (11.5-14.5); White Blood Count 18.5 K/mm3 (4.5-10.0)
--- NOTE | 2024-10-05 01:40 | ED.ABDPAIN ---
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 She has residual dysarthria and tremor at baseline as well. She has a history of hypertension and diabetes. Presents to the emergency department today with sudden-onset abdominal pain that radiated towards her back and started radiating into her chest. She was in bed at 11:00 p.m. when she had the sudden sensation of abdominal pain that was sharp in quality. Endorses nauseousness without vomiting. No diarrhea constipation. She was otherwise in her normal state of health, no recent injuries or illnesses. Follows up regularly with her outpatient primary care provider and specialist. Has gone through physical therapy and rehabilitation for her previous stroke. Does not take any anticoagulant medications. Related Data Home Medications ?Medication ?Instructions ?Recorded ?Confirmed ?Last Taken ?Type hydralazine 50 mg tablet 50 mg PO TID 10/02/24 10/02/24 Unknown History Allergies Allergy/AdvReac Type Severity Reaction Status Date / Time No Known Allergies Allergy Verified 10/02/24 13:59 Review of Systems Review of Systems: As reviewed above in HPI [facility] Past Medical History Medical History Type 2 diabetes mellitus with hyperglycemia Essential (primary) hypertension Basal ganglia hemorrhage Family History Family History Other Diabetes mellitus Family history of malignant neoplasm Social History Social History Smoking status: Former smoker Tobacco type: cigarettes Smoking end date: 08/23/84 Alcohol intake: never Substance use: never Substance use type: does not use Do You Feel Safe in your Home?: No Lack of Transportation: No Lack of Food: Never True Current Housing: I Have Housing Concerned About Future Housing: No Difficulty Paying Gas/Electric Bills: No Difficulty Paying for Meds: No Currently Unemployed: No Education: Don't Know Difficulty w/ Childcare or Family Care: No Spiritual care concerns: No Exam Narrative: GENERAL: Uncomfortable and writhing in pain HEAD: [Normocephalic, atraumatic.] EYES: [PERRLA and EOMI.] ENT: Nares clear, no rhinorrhea or epistaxis. Mucous membranes moist. NECK: Supple. CHEST: [Clear to auscultation. No respiratory distress.] HEART: [Regular rate and rhythm]. No murmur heard. [Normal peripheral pulses.] ABDOMEN: [Soft, nondistended], tender diffusely without any focal masses or overlying skin changes, [No rigidity or guarding] EXTREMITIES: Normal range of motion. [No edema.] SKIN: Warm, dry, no rash. NEURO: Chronic right-sided hemiparesis, chronic facial droop and dysarthria. Alert and oriented [x3.] PSYCH: [Normal mood and affect.] Course Vital Signs Vital signs: Vital Signs Temperature 36.4 C L 10/05/24 01:27 Pulse Rate 84 10/05/24 01:27 Respiratory Rate 14 10/05/24 01:27 Blood Pressure 156/95 H 10/05/24 01:27 Pulse Oximetry 100 10/05/24 01:27 Oxygen Delivery Room Air 10/05/24 01:27 Temperature 36.4 C L 10/05/24 01:27 Pulse Rate 120 H 10/05/24 06:27 Respiratory Rate 15 10/05/24 06:27 Blood Pressure 187/97 H 10/05/24 06:27 Pulse Oximetry 100 10/05/24 06:27 Oxygen Delivery Room Air 10/05/24 01:27 MDM - Abdominal Pain MDM Narrative Medical decision making narrative: 64-year-old female with a history of 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 She presents to the ER today with sudden onset abdominal pain that radiated towards her back and into her chest that started approximately 2 hours prior to arrival. Associated with nausea. Patient is very uncomfortable appearing but not in any acute respiratory distress. She is hypertensive the blood pressure 156/95 but no tachycardia, tachypnea, fever or hypoxia. She has a tender abdomen but no distension. 2+ symmetric pulses in both arms and legs, chronic residual right-sided deficits and no new neurological findings on examination. Considerations for gastroenteritis, bowel obstruction, cholecystitis, cholelithiasis, volvulus, aortic process such as dissection or aneurysm, ACS. Broad workup was ordered including troponin, CBC, CMP, lipase, EKG and chest x-ray. CT of the chest abdomen pelvis with angiography phase was ordered and she was given fentanyl, Zofran and fluid bolus and re-evaluated frequently. Placed on monitoring analyst and pulse oximeter. CT angiography of the chest abdomen and pelvis was interpreted by [facility] with no acute aortic syndrome, no evidence of a pulmonary embolism, no acute findings within the thorax or abdomen or pelvis. No acute aortic pathology. Patient was re-evaluated initially felt better after the fentanyl but still having pain at this time. She is tachycardic but her laboratory studies show some hypokalemia but no other acute concerns. She was given a dose of Compazine and Dilaudid and re-evaluated after more fluids. She was given potassium supplementation through her IV and p.o.. Patient was frequent re-evaluated and having persistent tachycardia with elevations in the 120-130 range persistently with even episodes in the 150s range with sinus tachycardia on monitor and EKG repeat. She received additional fluid bolus and pain medications without significant change. Give her dose of magnesium as she was having some frequent PVCs and did receive some QTC prolonging medications. Initial EKG shows no evidence of ischemia. Expanded the workup to include toxicological screening, UDS, alcohol level, Tylenol, salicylate level given that she has been taking high doses of [id number] pain control medications for her right-sided extremity pain chronically. Given her persistent tachycardia and abdominal pain a pelvic ultrasound to assess for torsion was also ordered stat. Repeat EKG and troponin ordered. Ultrasound per radiologist interpretation shows normal uterus and ovaries and a fluid distended urinary bladder. Soria catheter was inserted with release of almost 1 L of fluid. No significant improvement in her heart rate is she is still tachycardic in the 120s to 130s range. States she felt significantly better after the catheterization however. Expanded workup shows a negative troponin, mildly elevated lactic acid 2.4, negative toxicological panel and UDS. Given patient's persistent elevated heart rate and persistent discomfort I did order additional fentanyl which helped her more than the dilaudid and she will be admitted for observation and continued evaluation of her tachycardia abdominal pain. She has an elevated leukocytosis of 18.5 which is unclear to be associated she has no signs or symptoms of infectious process especially with a negative urinalysis, no signs of pneumonia, no signs of intra-abdominal or thoracic infectious process. Remainder of workup shows normal hemoglobin, normal platelet count. Hypokalemia 2.8 which was repleted, normal creatinine, slight hyperglycemia, normal LFTs. Negative troponin. Negative lipase. Negative viral panel. Currently awaiting hospitalist called back for admission. Discussed with the hospitalist Dr. Ramirez. We went over patient's clinical exam, imaging studies from previous history, current assessment and vitals. Recommendations to obtain MRA imaging to assess for any bowel ischemia as she has proven to have potential vascular compromise from her chronic hypertension leading to her previous stroke and she does have an elevated lactate with pain out of proportion despite unremarkable findings thus far. Patient was given a dose of IV labetalol 10 mg to lower her blood pressure and heart rate with anti impulse therapy and MRI was called and available to take the patient from the ED. Admit orders were placed to a telemetry monitored bed and I spoke with the patient at bedside about the plan of care. Medical Records Attestation: I reviewed the patient's medical records. Lab Data Attestation: I reviewed the patient's lab results. 10/05/24 01:35 10/05/24 01:35 Labs: Lab Results 10/05/24 10/05/24 10/05/24 Range/Units 01:35 02:42 05:39 WBC 18.5 H (4.5-10.0) K/mm3 RBC 4.17 L (4.2-5.4) M/mm3 Hgb 13.1 (12.0-15.0) g/dL Hct 39.2 (37.0-47.0) % MCV 94.0 (80-100) fl MCH 31.4 (26-34) pg MCHC 33.4 (32-36) g/dl RDW 13.8 (11.5-14.5) % Plt Count 358 D (150-375) k/mm3 MPV 10.0 (7.4-10.4) fl Immature Gran % (Auto) 0.8 H (0-0.5) % Neut % (Auto) 77.4 H (45.5-73.1) % Lymph % (Auto) 13.1 L (18.3-44.2) % [place] % (Auto) 7.5 (2.6-8.5) % Eos % (Auto) 0.8 (0-4.4) % Baso % (Auto) 0.4 (0.2-1.2) % Lymph # (Auto) 2.43 (0.9-3.2) K/mm3 [place] # (Auto) 1.4 H (0.1-0.6) K/mm3 Eos # (Auto) 0.2 (0-0.3) K/mm3 Baso # (Auto) 0.1 (0.0-0.1) K/mm3 Abs Immat Gran (auto) 0.15 H (0.00-0.031) K/mm3 Absolute Neuts (auto) 14.3 H (1.3-6.7) K/mm3 Absolute Nucleated RBC 0.000 (0.0-0.012) K/mm3 Nucleated RBC % 0.0 (0.0-0.2) % Sodium 141 (137-145) mmol/L Potassium 2.8 L* (3.4-5.0) mmol/L Chloride 104 (98-107) mmol/L Carbon Dioxide 20 L (22-30) mmol/L Anion Gap 17 H (4-12) mmol/L BUN 19 H (7-17) mg/dL Creatinine 0.99 (0.7-1.0) mg/dL Estim Creat Clear Calc Not Reportable Estimated GFR 57 L (59 - ) Glucose 237 H (65-110) mg/dL Lactic Acid 2.4 H (0.7-2.0) mmol/L Calcium 9.8 (8.4-10.2) mg/dL Total Bilirubin 0.5 (0.2-1.3) mg/dL AST 15 (14-36) U/L ALT 17 (6-35) U/L Alkaline Phosphatase 101 (38-126) U/L Troponin I < 0.012 (0.000-0.034) ng/mL Total Protein 8.0 (6.3-8.2) g/dL Albumin 4.3 (3.5-5.1) g/dL Lipase 207 (23-300) U/L Urine Color Yellow (Yellow) Urine Appearance Clear (Clear) Urine pH 6.5 (5.0-9.0) Ur Specific [place] 1.019 (1.001-1.035) Urine Protein Negative (Negative) mg/dL Urine Glucose (UA) 2+ H (Negative) mg/dL Urine Ketones Negative (Negative) mg/dL Ur Blood (Man) Negative (Negative) Urine Nitrate Negative (Negative) Urine Bilirubin Negative (Negative) Urine Urobilinogen 0.2 (<2.0) mg/dL Leukocyte Esterase Rfl Negative (Negative) LEXIS/UL Salicylates < 1.0 L (2-20) mg/dL Urine Opiates Screen Negative (Negative) Urine Methadone Screen Negative (Negative) Acetaminophen < 10 L (10-30) ug/mL Ur Barbiturates Screen Negative (Negative) Ur Phencyclidine Scrn Negative (Negative) Ur Amphetamine Screen Negative (Negative) U Benzodiazepines Scrn Negative (Negative) Urine Cocaine Screen Negative (Negative) U Cannabinoids Screen Negative (Negative) Ethyl Alcohol < 10 (<10) mg/dL Influenza A (RT-PCR) Negative (Negative) Influenza B (RT-PCR) Negative (Negative) RSV (RT-PCR) Negative (Negative) SARS-CoV-2 RNA (RT-PCR) Negative (Negative) Imaging Data Attestation: I personally reviewed and interpreted this imaging study as follows: Radiologist's impression: No acute aortic syndrome, no pulmonary embolism, no ovarian torsion or cysts. No acute intra-abdominal or thoracic process. Discharge Plan Discharge Clinical Impression: Abdominal pain, History of cerebral hemorrhage, Hypertension, uncontrolled Patient Disposition: Still a Patient Condition: Stable Instructions: Antibiotic Form Patient Language: Mohawk Prescriptions: No Action amlodipine [Norvasc] 10 mg tablet 10 mg PO DAILY Qty: 90 0RF losartan 100 mg tablet 100 mg PO DAILY Qty: 90 0RF hydralazine 50 mg tablet 50 mg PO TID polyethylene glycol 3350 17 gram/dose powder 17 g PO DAILY Qty: 238 1RF Follow-up/Referrals: Rosa Elena Humphrey DO [Primary Care Provider] - Time of Disposition: 06:55
[2024-10-05 01:56] LABS: Alanine Aminotransferase 17 U/L (6-35); Albumin Level 4.3 g/dL (3.5-5.1); Alkaline Phosphatase 101 U/L (38-126); Anion Gap 17 mmol/L (4-12); Aspartate Amino Transferase 15 U/L (14-36); Bilirubin,Total 0.5 mg/dL (0.2-1.3); Blood Urea Nitrogen 19 mg/dL (7-17); Calcium 9.8 mg/dL (8.4-10.2); Carbon Dioxide 20 mmol/L (22-30); Chloride 104 mmol/L (98-107); Estimated Glomerular Filt Rate 57; Glucose 237 mg/dL (65-110); Lipase 207 U/L (23-300); Potassium 2.8 mmol/L (3.4-5.0); Sodium 141 mmol/L (137-145)
[2024-10-05] MEDS: ONDANSETRON INJ 4 MG/2 ML VIAL IV PUSH (01:58)
[2024-10-05] MEDS: fentaNYL CITRATE INJ (*CRX) 100 MCG/2 ML VIAL 50 MCG IV PUSH ×2 (01:58→06:33)
[2024-10-05] MEDS: LACTATED RINGERS 1,000 ML 999 ML IV CONT ×2 (01:58→04:20)
[2024-10-05 02:15] LABS: Influenza A QL RT-PCR Negative (Negative); Influenza B QL RT-PCR Negative (Negative); RSV RNA, RT-PCR Negative (Negative); SARS-CoV-2 RNA PCR Negative (Negative)
[2024-10-05 02:49] LABS: Add Urine Microscopic? NO; Appearance Urine Clear (Clear); Bilirubin Urine Negative (Negative); Blood Urine Negative (Negative); Color Urine Yellow (Yellow); Glucose Urine UA 2+ mg/dL (Negative); Ketones Urine Negative (Negative); Leukocyte Esterase Ur Negative LEU/UL (Negative); Nitrate Urine Negative (Negative); Protein Urine Negative (Negative); Specific Grav Ur 1.019 (1.001-1.035); Urobilinogen Urine 0.2 mg/dL (<2.0); pH Urine 6.5 (5.0-9.0)
[2024-10-05] MEDS: POTASSIUM CHLORIDE 20 MEQ ER TABLET 40 MEQ PO (02:54)
[2024-10-05] MEDS: POTASSIUM CHLORIDE INJ 40 MEQ in SODIUM CHLORIDE 0.9% IV 500 ML 130 MEQ IVPB (03:08)
[2024-10-05] MEDS: PROCHLORPERAZINE EDISYLATE 10 MG/2 ML VIAL IV PUSH (04:18)
[2024-10-05] MEDS: HYDROmorphone HCL INJ (*CRX) 1 MG/ML SYR IM (04:19)
--- NOTE | 2024-10-05 05:22 | ECG_ITS ---
Test Date: 2024-10-05 05:42:52 Measurements Intervals [place] Rate: 120 P: 75 CA: 160 QRS: 33 QRSD: 93 T: 79 QT: 365 QTc: 516 Interpretive Statements SINUS TACHYCARDIA WITH OCCASIONAL VENTRICULAR PREMATURE COMPLEXES WITH FREQUENT SUPRAVENTRICULAR PREMATURE COMPLEXES BORDERLINE T WAVE ABNORMALITY- INF/HIGH LAT LEADS BASELINE ARTIFACT- I, II, III, AVR, AVL, V1 ABNORMAL ECG Compared to ECG 10/05/2024 01:32:10 HEART RATE HAS INCREASED Electronically Signed On 10-05-2024 10:08:40 LDR RN by Lit Lopez D.O.
[2024-10-05] MEDS: MAGNESIUM SULF 2 GM/WATER 50ML 2 GM/50 ML BAG IVPB (05:24)
[2024-10-05 05:44] LABS: Amphetamine Screen Urine Negative (Negative); Barbiturate Screen Urine Negative (Negative); Benzodiazepines Screen Urine Negative (Negative); Cannabinoid Screen Urine Negative (Negative); Cocaine Screen Urine Negative (Negative); Methadone Screen Urine Negative (Negative); Opiate Screen Urine Negative (Negative); Phencyclidine Screen Urine Negative (Negative)
[2024-10-05 06:06] LABS: Lactic Acid Reflex 2.4 mmol/L (0.7-2.0)
[2024-10-05 06:08] LABS: Acetaminophen < 10 ug/mL (10-30); Ethanol < 10 mg/dL (<10); Salicylate < 1.0 mg/dL (2-20)
[2024-10-05 06:19] LABS: Troponin I < 0.012 ng/mL (0.000-0.034)
[2024-10-05] MEDS: LABETALOL HCL INJ 100 MG/20 ML VIAL 10 MG IV PUSH (06:52)
--- NOTE | 2024-10-05 07:15 | PC.NURSE ---
1400mL of pale, clear, yellow urine emptied from patient's islas catheter bag
--- NOTE | 2024-10-05 07:17 | PC.NURSE ---
No magnesium was running when this RN took over care of patient
[2024-10-05 07:19] LABS: Anion Gap 13 mmol/L (4-12); Blood Urea Nitrogen 15 mg/dL (7-17); Calcium 9.5 mg/dL (8.4-10.2); Carbon Dioxide 23 mmol/L (22-30); Chloride 106 mmol/L (98-107); Estimated Glomerular Filt Rate > 60; Glucose 193 mg/dL (65-110); Sodium 142 mmol/L (137-145)
[2024-10-05 07:39] LABS: Basophils Percent Auto 0.2 % (0.2-1.2); Eosinophils Percent Auto 0.1 % (0-4.4); Hemoglobin 11.6 g/dL (12.0-15.0); Immature Granulocyte Absolute 0.17 K/mm3 (0.00-0.031); Immature Granulocyte Percent A 1.1 % (0-0.5); Lymphocytes Absolute Auto 0.94 K/mm3 (0.9-3.2); Lymphocytes Percent Auto 5.9 % (18.3-44.2); Mean Corpuscular HGB Conc 33.1 g/dl (32-36); Mean Corpuscular Hemoglobin 31.4 pg (26-34); Mean Corpuscular Volume 94.6 fl (80-100); Mean Platelet Volume 10.1 fl (7.4-10.4); Monocytes Absolute Auto 1.4 K/mm3 (0.1-0.6); Monocytes Percent Auto 8.9 % (2.6-8.5); Neutrophils Absolute Auto 13.4 K/mm3 (1.3-6.7); Neutrophils Percent Auto 83.8 % (45.5-73.1); Platelet Count Result 270 k/mm3 (150-375); Red Cell Distribution Width 13.9 % (11.5-14.5)
--- NOTE | 2024-10-05 08:38 | PC.NURSE ---
Hospitalist paged about patient's BP changes
--- NOTE | 2024-10-05 08:43 | PC.NURSE ---
Spoke with Dr Bee and he gave verbal order for 10mg hydralazine IV push for patient's elevated BP
[2024-10-05 08:46] LABS: Reflex Lactic Acid Yes or No Add Lactic
[2024-10-05] MEDS: hydrALAZINE HCL 20 MG/ML VIAL 10 MG IV PUSH (08:46)
[2024-10-05 09:43] LABS: Lactic Acid 1.8 mmol/L (0.7-2.0)
--- NOTE | 2024-10-05 10:12 | PC.NURSE ---
Patient to MRI
--- NOTE | 2024-10-05 10:23 | PM.IMHP ---
H&P: HPI History of Present Illness Date/Time: 10/05/24 10:23 Chief Complaint: abd pain, chest pain, sob Narrative: 64 y.o with PMH of HTN, T2DM, neuropathy, esophageal stricture, ICH with residual RT sided hemiparesis. She had been dealing with residual dysarthria and tremor at baseline. She was supposed to be following with neurology at [facility] but has no means to get there. Per chart review, she was seen recently per her PCP for leg pain- gabapentin was started but she was not able to tolerate it due to nausea and vomiting. She also stopped taking her metformin at some point. She presented to ED for c/o sudden onset of abd pain that was radiating to her back and chest started around 11 pm last night. She described it as sharp, she felt nauseated but reports no vomiting. IN ED:her abd was tender but no distension. 2+ symmetric pulses in both arms and legs, chronic residual right-sided deficits and no new neurological findings on examination. Differentials are broad: gastroenteritis, bowel obstruction, cholecystitis, cholelithiasis, volvulus, aortic process such as dissection or aneurysm, ACS. Troponin, CBC, CMP, lipase, EKG and chest x-ray ordered. Initial EKG shows no evidence of ischemia. Negative troponin, mildly elevated lactic acid 2.4, negative toxicological panel and UDS. She has an elevated leukocytosis of 18.5 which is unclear to be associated she has no signs or symptoms of infectious process especially with a negative urinalysis, no signs of pneumonia, no signs of intra-abdominal or thoracic infectious process. Hg and platelets are normal. Hypokalemia 2.8 which was repleted, normal creatinine, slight hyperglycemia, normal LFTs. Negative troponin. Negative lipase. Negative viral panel. CT of the chest abdomen pelvis with angiography ordered in ed. She was given fentanyl, Zofran and fluid bolus CT angiography of the chest abdomen and pelvis - no acute aortic syndrome, no evidence of a pulmonary embolism, no acute findings within the thorax or abdomen or pelvis. No acute aortic pathology. Given her persistent tachycardia and abdominal pain a pelvic ultrasound to assess for torsion was ordered: normal uterus and ovaries and a fluid distended urinary bladder. Soria catheter was inserted with release of almost 1 L of fluid. Review of Systems Constitutional: Constitutional: Denies chills Cardiovascular: Cardiovascular: Reports chest pain Respiratory: Respiratory: Denies chest congestion Gastrointestinal: Gastrointestinal: Reports abdominal pain Musculoskeletal: Comments: rt leg and are numbness Psychiatric: Psychiatric: Denies confusion ON LICENSE OF [facility] Past Medical History Medical History Type 2 diabetes mellitus with hyperglycemia Essential (primary) hypertension Basal ganglia hemorrhage Family History Family History Other Diabetes mellitus Family history of malignant neoplasm Social History Social History Smoking status: Former smoker Tobacco type: cigarettes Smoking end date: 08/23/84 Alcohol intake: never Substance use: never Substance use type: does not use Do You Feel Safe in your Home?: Yes Lack of Transportation: No Lack of Food: Never True Current Housing: I Have Housing Concerned About Future Housing: No Difficulty Paying Gas/Electric Bills: No Difficulty Paying for Meds: No Currently Unemployed: No Education: High School Diploma/GED Difficulty w/ Childcare or Family Care: No Spiritual care concerns: No Meds Home Medications and Allergies Home Medications ?Medication ?Instructions ?Recorded ?Confirmed ?Type amlodipine 10 mg tablet (Norvasc) 10 mg PO DAILY #90 tabs 10/05/24 10/05/24 Rx hydralazine 50 mg tablet 50 mg PO TID #90 tabs 10/05/24 10/05/24 Rx losartan 100 mg tablet 100 mg PO DAILY #90 tabs 10/05/24 10/05/24 Rx Allergies Allergy/AdvReac Type Severity Reaction Status Date / Time No Known Allergies Allergy Verified 10/02/24 13:59 Vital Signs Vital Signs - 24 hr 10/05/24 01:27 10/05/24 02:46 10/05/24 03:02 Temperature 97.5 F L Pulse Rate 84 127 H Respiratory Rate 14 22 H Blood Pressure 156/95 H 173/100 H 176/95 H Pulse Oximetry 100 99 Oxygen Delivery Room Air 10/05/24 04:20 10/05/24 06:27 10/05/24 07:30 Temperature Pulse Rate 110 H 120 H 93 Respiratory Rate 16 15 12 Blood Pressure 154/91 H 187/97 H 158/107 H Pulse Oximetry 98 100 98 Oxygen Delivery 10/05/24 08:00 10/05/24 08:30 10/05/24 09:00 Temperature Pulse Rate 92 96 101 H Respiratory Rate 13 13 13 Blood Pressure 172/105 H 174/115 H 177/100 H Pulse Oximetry 98 99 99 Oxygen Delivery 10/05/24 09:30 Temperature Pulse Rate 104 H Respiratory Rate 15 Blood Pressure 162/89 H Pulse Oximetry 98 Oxygen Delivery Exam Narrative: rt sided weakness-slight- baseline Const: General: comfortable Resp: Effort & Inspection: normal respiratory effort Auscultation: clear to auscultation bilaterally Cardio: Rate: regular rate and tachycardic Rhythm: regular rhythm GI: GI Palp: Yes Soft to palpation Auscultation: normal bowel sounds Urinary Catheter: Urinary Catheter: patent and draining and urine clear Skin: General skin exam: normal color Extrem: General: normal to inspection Psych: Mental Status: mental status grossly normal Affect: normal affect H&P: Results Labs Labs: Short CBC 10/05/24 10/05/24 Range/Units 01:35 07:22 WBC 18.5 H 16.0 H (4.5-10.0) K/mm3 Hgb 13.1 11.6 L (12.0-15.0) g/dL Hct 39.2 35.0 L (37.0-47.0) % Plt Count 358 D 270 (150-375) k/mm3 BMP 10/05/24 10/05/24 01:35 05:39 Sodium 141 142 Potassium 2.8 L* 4.0 Chloride 104 106 Carbon Dioxide 20 L 23 BUN 19 H 15 Creatinine 0.99 0.75 Glucose 237 H 193 H Calcium 9.8 9.5 Cardiac Enzymes 10/05/24 Range/Units 05:39 Troponin I < 0.012 (0.000-0.034) ng/mL Liver Function 10/05/24 Range/Units 01:35 Total Bilirubin 0.5 (0.2-1.3) mg/dL AST 15 (14-36) U/L ALT 17 (6-35) U/L Alkaline Phosphatase 101 (38-126) U/L Albumin 4.3 (3.5-5.1) g/dL Urine 10/05/24 Range/Units 02:42 Urine Color Yellow (Yellow) Urine Appearance Clear (Clear) Urine pH 6.5 (5.0-9.0) Ur Specific [place] 1.019 (1.001-1.035) Urine Protein Negative (Negative) mg/dL Urine Glucose (UA) 2+ H (Negative) mg/dL Assessment and Plan Assessment and plan (1) Hypertension, uncontrolled: Code(s): I10 - Essential (primary) hypertension Status: Acute (2) Type 2 diabetes mellitus without complications: Code(s): E11.9 - Type 2 diabetes mellitus without complications Status: Acute (3) Abdominal pain: Code(s): R10.9 - Unspecified abdominal pain Status: Acute (4) Hemiparesis of right dominant side as late effect of nontraumatic intracerebral hemorrhage: Code(s): I69.151 - Hemiplegia and hemiparesis following nontraumatic intracerebral hemorrhage affecting right dominant side Status: Acute Assessment and Plan: completed pt/ot as an outpt Plan 64-year-old female with a history of 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 She is admitted for sudden onset abdominal pain that radiated towards her back and into her chest. Pain was sharp, associated with nausea. Differentials are broad: gastroenteritis, bowel obstruction, cholecystitis, cholelithiasis, others. Troponin, CBC, CMP, lipase, EKG and chest x-ray ordered. Initial EKG shows no evidence of ischemia. Negative troponin, mildly elevated lactic acid 2.4, negative toxicological panel and UDS. She has an elevated leukocytosis of 18.5 which is unclear to be associated she has no signs or symptoms of infectious process especially with a negative urinalysis, no signs of pneumonia, no signs of intra-abdominal or thoracic infectious process. Hg and platelets are normal. Hypokalemia 2.8 which was repleted, normal creatinine, slight hyperglycemia, normal LFTs. Negative troponin. Negative lipase. Negative viral panel. CT of the chest abdomen pelvis with angiography ordered in ed. She was given fentanyl, Zofran and fluid bolus CT angiography of the chest abdomen and pelvis - no acute aortic syndrome, no evidence of a pulmonary embolism, no acute findings within the thorax or abdomen or pelvis. No acute aortic pathology. Given her persistent tachycardia and abdominal pain a pelvic ultrasound to assess for torsion was ordered: normal uterus and ovaries and a fluid distended urinary bladder. Soria catheter was inserted with release of almost 1 L of fluid. She reports stopping metformin but now states takes it daily instead of BID. Will add hypoglycemia protocol and SS.HgA1c ordered. When examined- her abd is soft and BS present. She doesn't have pain, no nausea. Wanted to drink water- will advance to clears and monitor. She does reports frequent constipations but not taking anything for it. Will add miralax. Will hold hydralazine as tachycardic. Quality VTE Prophylaxis VTE prophylaxis: mechanical ordered Hospitalist [facility] Advance Care Plan I have confirmed that the patient's Advanced Care Plan is present, code status is documented, or surrogate decision maker is listed in patient medical record.: Yes Medication Reconciliation I have utilized all available resources to obtain, update and review the patients current medications (includes all prescriptions, OTC, herbals, cannabis, and nutritional supplements).: Yes
--- NOTE | 2024-10-05 10:59 | PC.NURSE ---
Patient back from MRI
--- NOTE | 2024-10-05 14:12 | PC.NURSE ---
called and informed patient has gotten a bed and will be going to room 319.
[2024-10-05 16:45] LABS: Glucose Point of Care 117 mg/dl (65-105)
[2024-10-05 22:00] LABS: Glucose Point of Care 253 mg/dl (65-105)
[2024-10-05] MEDS: LACTULOSE ENEMA 200 GM/1,000 ML ENEMA RECTAL (22:45)
[2024-10-05] MEDS: LACTULOSE 20 GM/30 ML UDC PO (23:10)
[2024-10-06] VITALS (12 sets, daily range): BP systolic 153–166; BP diastolic 94–108; PULSE 62–137; RESP 14–18; TEMP 36.1–37.6; O2SAT 96–97; BMI 18.3
[2024-10-06] MEDS: ONDANSETRON INJ 4 MG/2 ML VIAL IV PUSH (04:08)
[2024-10-06] MEDS: HYDROmorphone HCL INJ (*CRX) 1 MG/ML SYR 0.5 MG IV PUSH (04:09)
[2024-10-06 07:20] LABS: Hemoglobin 12.6 g/dL (12.0-15.0); Mean Corpuscular HGB Conc 32.3 g/dl (32-36); Mean Corpuscular Hemoglobin 30.9 pg (26-34); Mean Corpuscular Volume 95.6 fl (80-100); Mean Platelet Volume 10.4 fl (7.4-10.4); Platelet Count Result 265 k/mm3 (150-375); Red Blood Count 4.08 M/mm3 (4.2-5.4); Red Cell Distribution Width 13.8 % (11.5-14.5); White Blood Count 14.7 K/mm3 (4.5-10.0)
[2024-10-06 07:34] LABS: Anion Gap 12 mmol/L (4-12); Blood Urea Nitrogen 13 mg/dL (7-17); Calcium 9.5 mg/dL (8.4-10.2); Carbon Dioxide 22 mmol/L (22-30); Chloride 106 mmol/L (98-107); Estimated Glomerular Filt Rate > 60; Glucose 143 mg/dL (65-110); Potassium 3.8 mmol/L (3.4-5.0); Sodium 140 mmol/L (137-145)
[2024-10-06 08:37] LABS: Glucose Point of Care 147 mg/dl (65-105)
[2024-10-06] MEDS: amLODIPine BESYLATE 10 MG TABLET PO (10:17)
[2024-10-06] MEDS: LACTULOSE 20 GM/30 ML UDC PO (10:17)
[2024-10-06] MEDS: LOSARTAN POTASSIUM 100 MG TABLET PO (10:18)
[2024-10-06 11:36] LABS: Glucose Point of Care 279 mg/dl (65-105)
[2024-10-06] MEDS: INSULIN ASPART (*BKC) 100 UNITS/ML SUB-Q (11:47)
[2024-10-06] MEDS: METOPROLOL TARTRATE INJ 5 MG/5 ML VIAL IV PUSH (13:15)
--- NOTE | 2024-10-06 13:43 | P.PNIM_ITS ---
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 She is admitted for sudden onset abdominal pain that radiated towards her back and into her chest. Pain was sharp, associated with nausea. Differentials are broad: gastroenteritis, bowel obstruction, cholecystitis, cholelithiasis, others. Troponin, CBC, CMP, lipase, EKG and chest x-ray ordered. Initial EKG shows no evidence of ischemia. Negative troponin, mildly elevated lactic acid 2.4, negative toxicological panel and UDS. She has an elevated leukocytosis of 18.5 which is unclear to be associated she has no signs or symptoms of infectious process especially with a negative urinalysis, no signs of pneumonia, no signs of intra-abdominal or thoracic infectious process. Hg and platelets are normal. Hypokalemia 2.8 which was repleted, normal creatinine, slight hyperglycemia, normal LFTs. Negative troponin. Negative lipase. Negative viral panel. CT of the chest abdomen pelvis with angiography ordered in ed. She was given fentanyl, Zofran and fluid bolus CT angiography of the chest abdomen and pelvis - no acute aortic syndrome, no evidence of a pulmonary embolism, no acute findings within the thorax or abdomen or pelvis. No acute aortic pathology. Given her persistent tachycardia and abdominal pain a pelvic ultrasound to assess for torsion was ordered: normal uterus and ovaries and a fluid distended urinary bladder. Soria catheter was inserted with release of almost 1 L of fluid. She reports stopping metformin but now states takes it daily instead of BID. Will add hypoglycemia protocol and SS.HgA1c ordered. When examined- her abd is soft and BS present. She doesn't have pain, no nausea. Wanted to drink water- will advance to clears and monitor. She does reports frequent constipations but not taking anything for it. Will add miralax. Will hold hydralazine as tachycardic. 10/06- ordered BC- WBC 14.7, 100.1 temp last night added ER metoprolol added lidocaine pacth advance diet Time Spent With Patient Time with patient: 25 - 35 minutes Subjective Date/time seen: 10/06/24 13:43 Interval history: abd pain, chest pain, sob Narrative: 64 y.o with PMH of HTN, T2DM, neuropathy, esophageal stricture, ICH with residual RT sided hemiparesis. She had been dealing with residual dysarthria and tremor at baseline. She was supposed to be following with neurology at [facility] but has no means to get there. Per chart review, she was seen recently per her PCP for leg pain- gabapentin was started but she was not able to tolerate it due to nausea and vomiting. She also stopped taking her metformin at some point. She presented to ED for c/o sudden onset of abd pain that was radiating to her back and chest started around 11 pm last night. She described it as sharp, she felt nauseated but reports no vomiting. IN ED:her abd was tender but no distension. 2+ symmetric pulses in both arms and legs, chronic residual right-sided deficits and no new neurological findings on examination. Differentials are broad: gastroenteritis, bowel obstruction, cholecystitis, cholelithiasis, volvulus, aortic process such as dissection or aneurysm, ACS. Troponin, CBC, CMP, lipase, EKG and chest x-ray ordered. Initial EKG shows no evidence of ischemia. Negative troponin, mildly elevated lactic acid 2.4, negative toxicological panel and UDS. She has an elevated leukocytosis of 18.5 which is unclear to be associated she has no signs or symptoms of infectious process especially with a negative urinalysis, no signs of pneumonia, no signs of intra-abdominal or thoracic infectious process. Hg and platelets are normal. Hypokalemia 2.8 which was repleted, normal creatinine, slight hyperglycemia, normal LFTs. Negative troponin. Negative lipase. Negative viral panel. CT of the chest abdomen pelvis with angiography ordered in ed. She was given fentanyl, Zofran and fluid bolus CT angiography of the chest abdomen and pelvis - no acute aortic syndrome, no evidence of a pulmonary embolism, no acute findings within the thorax or abdomen or pelvis. No acute aortic pathology. Given her persistent tachycardia and abdominal pain a pelvic ultrasound to assess for torsion was ordered: normal uterus and ovaries and a fluid distended urinary bladder. Soria catheter was inserted with release of almost 1 L of fluid. 10/06- pt is comfortable- pain is more isolated to rt rib area today and not chest or abd. Able to tolerate liquids- can advance diet. Will try lidocaine patch. She is unsure why she could not take beta blockers- it made her heri seated? but she is willing to try to help with elevated hr and BP. she is comfortable otherwise Review of Systems Review of Systems: All systems reviewed & are unremarkable except as noted in HPI and below Constitutional: Constitutional: Denies chills Cardiovascular: Cardiovascular: Reports chest pain Respiratory: Respiratory: Denies chest congestion Gastrointestinal: Gastrointestinal: Reports abdominal pain Neurologic: Denies confusion Psychiatric: Psychiatric: Denies confusion Exam Narrative: rt sided weakness-slight- baseline Const: General: comfortable; No confusion HENMT: Other: poor dental hygiene Resp: Effort & Inspection: normal respiratory effort Auscultation: clear to auscultation bilaterally Cardio: Rate: regular rate and tachycardic Rhythm: regular rhythm GI: Auscultation: normal bowel sounds Urinary Catheter: Urinary Catheter: patent and draining and urine clear Skin: General skin exam: normal color Neuro: General: No confusion Extrem: General: normal to inspection Psych: Mental Status: mental status grossly normal Affect: normal affect Objective Data Vital Signs Vital Signs: Vital Signs - 24 hr 10/05/24 16:00 10/05/24 20:00 10/05/24 20:00 Temperature Pulse Rate 108 H 126 H Respiratory Rate Blood Pressure Pulse Oximetry Oxygen Delivery Room Air 10/05/24 20:45 10/05/24 22:41 10/06/24 00:00 Temperature 100.1 F H Pulse Rate 125 H 58 L 113 H Respiratory Rate 18 20 Blood Pressure 147/99 H Pulse Oximetry 98 97 Oxygen Delivery 10/06/24 04:00 10/06/24 06:10 10/06/24 11:43 Temperature 96.9 F L 97.8 F Pulse Rate 126 H 109 H 119 H Respiratory Rate 18 14 Blood Pressure 154/107 H 166/108 H Pulse Oximetry 97 96 Oxygen Delivery Intake/Output Intake/Output: Intake & Output 02/11/25 10/04/24 10/05/24 10/06/24 23:59 23:59 23:59 23:59 Intake Total 3410 880 Output Total 1200 350 Balance 2210 530 Meds/Results Medications: Active Medications Generic Name Dose Route Start Last Admin Trade Name Freq PRN Reason Stop Dose Admin Amlodipine Besylate 10 mg 10/06/24 09:00 10/06/24 10:17 Amlodipine Besylate 10 Mg Tablet PO 10 mg DAILY ANGELINA Administration Dextrose 12.5 gm 10/05/24 15:52 Dextrose 50% 25 Gm/50 Ml Syringe IV PUSH PRN PRN Hypoglycemia Protocol Glucagon 1 mg 10/05/24 15:52 Glucagon For Inj 1 Mg Vial IM PRN PRN Hypoglycemia Protocol Glucose 15 gm 10/05/24 15:52 Glucose Oral Gel 15 Gm Of Glucse In 37.5 Gm Tube PO PRN PRN Hypoglycemia Protocol Dextrose 1,000 mls @ 100 mls/hr 10/05/24 15:52 Dextrose 5% 1,000 Ml IVPB PRN PRN Hypoglycemia Protocol Insulin Aspart 2 - 5 units 10/05/24 17:00 10/06/24 11:47 Insulin Aspart (*Bkc) 100 Units/Ml SUB-Q 3 units TIDWM ANGELINA Administration Protocol Lactulose 20 gm 10/05/24 21:10 10/06/24 10:17 Lactulose 20 Gm/30 Ml Udc PO 20 gm QAM ANGELINA Administration Lidocaine 1 patch 10/07/24 09:00 Lidocaine 5% Patch TRANSDERM DAILY ANGELINA Losartan Potassium 100 mg 10/06/24 09:00 10/06/24 10:18 Losartan Potassium 100 Mg Tablet PO 100 mg DAILY ANGELINA Administration Metoprolol Succinate 12.5 mg 10/06/24 12:40 Metoprolol Succinate Ext Rel 12.5 Mg Tabcr PO QAM ANGELINA Miscellaneous Information 0 each 10/06/24 00:01 Where Is Lidocaine Patch Being Applied? 1st Dose Today (10/06)? XX 11/05/24 00:00 CLARIFY ANGELINA Ondansetron HCl 4 mg 10/05/24 15:58 10/06/24 04:08 Ondansetron Inj 4 Mg/2 Ml Vial IV PUSH 4 mg Q4H PRN Administration Nausea And Vomiting Polyethylene Glycol 17 gm 10/05/24 15:52 Polyethylene Glycol 3350 17 Gm Powd.Pack PO QAM PRN Constipation Radiology Results: ITS Impressions Chest/Abdomen/Pelvis CTA 10/05/24 07:46 Impression: No acute abnormalities seen. Diffuse hepatic steatosis. Pelvis Ultrasound 10/05/24 07:48 Impression: Unremarkable pelvic ultrasound. No evidence for torsion. Abdomen MRA 10/05/24 11:10 IMPRESSION: 1. Unremarkable MR angiogram with no hemodynamically significant stenosis of the abdominal aorta and its major branch arteries. Pelvis MRA 10/05/24 11:10 IMPRESSION: 1. Unremarkable MR angiogram with no hemodynamically significant stenosis of the abdominal aorta and its major branch arteries. Labs Labs: Laboratory Results - last 24 hr 10/05/24 10/05/24 10/06/24 16:37 20:47 06:35 WBC 14.7 H RBC 4.08 L Hgb 12.6 Hct 39.0 MCV 95.6 MCH 30.9 MCHC 32.3 RDW 13.8 Plt Count 265 MPV 10.4 Sodium 140 Potassium 3.8 Chloride 106 Carbon Dioxide 22 Anion Gap 12 BUN 13 Creatinine 0.90 Estim Creat Clear Calc Not Reportable Estimated GFR > 60 Glucose 143 H POC Capillary Glucose 117 H 253 H Hemoglobin A1c 6.0 H Calcium 9.5 TSH (Reflex) 1.350 10/06/24 10/06/24 08:02 11:20 WBC RBC Hgb Hct MCV MCH MCHC RDW Plt Count MPV Sodium Potassium Chloride Carbon Dioxide Anion Gap BUN Creatinine Estim Creat Clear Calc Estimated GFR Glucose POC Capillary Glucose 147 H 279 H Hemoglobin A1c Calcium TSH (Reflex) Quality VTE Prophylaxis VTE prophylaxis: mechanical ordered
[2024-10-06 16:51] LABS: Glucose Point of Care 177 mg/dl (65-105)
[2024-10-06] MEDS: LIDOCAINE 5% PATCH 1 PATCH TRANSDERM (17:12)
[2024-10-06] MEDS: METOPROLOL SUCCINATE EXT REL 12.5 MG TABCR PO (17:13)
[2024-10-06] MEDS: ACETAMINOPHEN 325 MG TABLET 650 MG PO (18:58)
[2024-10-06] MEDS: IBUPROFEN 600 MG TABLET PO (22:03)
[2024-10-06 22:53] LABS: Glucose Point of Care 191 mg/dl (65-105)
[2024-10-07] VITALS (10 sets, daily range): BP systolic 134–140; BP diastolic 80–83; PULSE 58–115; RESP 16–20; TEMP 36.6–36.8; O2SAT 96–97
[2024-10-07] MEDS: IBUPROFEN 600 MG TABLET PO ×2 (05:07→20:34)
[2024-10-07 07:49] LABS: Hematocrit 33.8 % (37.0-47.0); Hemoglobin 11.3 g/dL (12.0-15.0); Mean Corpuscular HGB Conc 33.4 g/dl (32-36); Mean Corpuscular Hemoglobin 31.3 pg (26-34); Mean Corpuscular Volume 93.6 fl (80-100); Mean Platelet Volume 10.4 fl (7.4-10.4); Platelet Count Result 230 k/mm3 (150-375); Red Blood Count 3.61 M/mm3 (4.2-5.4); Red Cell Distribution Width 13.2 % (11.5-14.5); White Blood Count 17.6 K/mm3 (4.5-10.0)
[2024-10-07 08:07] LABS: Anion Gap 8 mmol/L (4-12); Blood Urea Nitrogen 18 mg/dL (7-17); Calcium 9.1 mg/dL (8.4-10.2); Carbon Dioxide 24 mmol/L (22-30); Chloride 104 mmol/L (98-107); Estimated Glomerular Filt Rate > 60; Glucose 136 mg/dL (65-110); Potassium 3.9 mmol/L (3.4-5.0); Sodium 136 mmol/L (137-145)
[2024-10-07] MEDS: LIDOCAINE 5% PATCH 1 PATCH TRANSDERM (08:15)
[2024-10-07] MEDS: LACTULOSE 20 GM/30 ML UDC PO (08:16)
[2024-10-07] MEDS: METOPROLOL SUCCINATE EXT REL 12.5 MG TABCR PO (08:16)
[2024-10-07] MEDS: amLODIPine BESYLATE 10 MG TABLET PO (08:16)
[2024-10-07] MEDS: LOSARTAN POTASSIUM 100 MG TABLET PO (08:18)
[2024-10-07 08:30] LABS: Glucose Point of Care 155 mg/dl (65-105)
--- NOTE | 2024-10-07 11:21 | PC.NURSE ---
Patient eating breakfast during morning assessment. She states this is the first food I have had in 3 days . Patient is calm and cooperative. Right side has minimal residual. Patient states everything is slowly coming back . Patient compliant with medications. She denies any needs at this time.
--- NOTE | 2024-10-07 11:30 | P.PNIM_ITS ---
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 She is admitted for sudden onset abdominal pain that radiated towards her back and into her chest. Pain was sharp, associated with nausea. Differentials are broad: gastroenteritis, bowel obstruction, cholecystitis, cholelithiasis, others. Troponin, CBC, CMP, lipase, EKG and chest x-ray ordered. Initial EKG shows no evidence of ischemia. Negative troponin, mildly elevated lactic acid 2.4, negative toxicological panel and UDS. She has an elevated leukocytosis of 18.5 which is unclear to be associated she has no signs or symptoms of infectious process especially with a negative urinalysis, no signs of pneumonia, no signs of intra-abdominal or thoracic infectious process. Hg and platelets are normal. Hypokalemia 2.8 which was repleted, normal creatinine, slight hyperglycemia, normal LFTs. Negative troponin. Negative lipase. Negative viral panel. CT of the chest abdomen pelvis with angiography ordered in ed. She was given fentanyl, Zofran and fluid bolus CT angiography of the chest abdomen and pelvis - no acute aortic syndrome, no evidence of a pulmonary embolism, no acute findings within the thorax or abdomen or pelvis. No acute aortic pathology. Given her persistent tachycardia and abdominal pain a pelvic ultrasound to assess for torsion was ordered: normal uterus and ovaries and a fluid distended urinary bladder. Soria catheter was inserted with release of almost 1 L of fluid. She reports stopping metformin but now states takes it daily instead of BID. Will add hypoglycemia protocol and SS.HgA1c ordered. When examined- her abd is soft and BS present. She doesn't have pain, no nausea. Wanted to drink water- will advance to clears and monitor. She does reports frequent constipations but not taking anything for it. Will add miralax. Will hold hydralazine as tachycardic. 10/06- ordered BC- WBC 14.7, 100.1 temp last night added ER metoprolol added lidocaine patch advance diet 10/07 repeat lipase add hepatitis panel abd ultrasound ordered- if no sludge or no acute findings- will consider HIDA scan Subjective Date/time seen: 10/07/24 11:30 Interval history: abd pain, chest pain, sob Narrative: 64 y.o with PMH of HTN, T2DM, neuropathy, esophageal stricture, ICH with residual RT sided hemiparesis. She had been dealing with residual dysarthria and tremor at baseline. She was supposed to be following with neurology at [facility] but has no means to get there. Per chart review, she was seen recently per her PCP for leg pain- gabapentin was started but she was not able to tolerate it due to nausea and vomiting. She also stopped taking her metformin at some point. She presented to ED for c/o sudden onset of abd pain that was radiating to her back and chest started around 11 pm last night. She described it as sharp, she felt nauseated but reports no vomiting. IN ED:her abd was tender but no distension. 2+ symmetric pulses in both arms and legs, chronic residual right-sided deficits and no new neurological findings on examination. Differentials are broad: gastroenteritis, bowel obstruction, cholecystitis, cholelithiasis, volvulus, aortic process such as dissection or aneurysm, ACS. Troponin, CBC, CMP, lipase, EKG and chest x-ray ordered. Initial EKG shows no evidence of ischemia. Negative troponin, mildly elevated lactic acid 2.4, negative toxicological panel and UDS. She has an elevated leukocytosis of 18.5 which is unclear to be associated she has no signs or symptoms of infectious process especially with a negative urinalysis, no signs of pneumonia, no signs of intra-abdominal or thoracic infectious process. Hg and platelets are normal. Hypokalemia 2.8 which was repleted, normal creatinine, slight hyperglycemia, normal LFTs. Negative troponin. Negative li pase. Negative viral panel. CT of the chest abdomen pelvis with angiography ordered in ed. She was given fentanyl, Zofran and fluid bolus CT angiography of the chest abdomen and pelvis - no acute aortic syndrome, no evidence of a pulmonary embolism, no acute findings within the thorax or abdomen or pelvis. No acute aortic pathology. Given her persistent tachycardia and abdominal pain a pelvic ultrasound to assess for torsion was ordered: normal uterus and ovaries and a fluid distended urinary bladder. Soria catheter was inserted with release of almost 1 L of fluid. 10/06- pt is comfortable- pain is more isolated to rt rib area today and not chest or abd. Able to tolerate liquids- can advance diet. Will try lidocaine patch. She is unsure why she could not take beta blockers- it made her nauseated? but she is willing to try to help with elevated hr and BP. she is comfortable otherwise 10/07- stable- no acute events. lidocaine patch helps with pain. eating ok- no n/v. she had BM last night. Review of Systems Review of Systems: All systems reviewed & are unremarkable except as noted in HPI and below Constitutional: Constitutional: Denies chills Cardiovascular: Cardiovascular: Reports chest pain Respiratory: Respiratory: Denies chest congestion Gastrointestinal: Gastrointestinal: Reports abdominal pain Neurologic: Denies confusion Psychiatric: Psychiatric: Denies confusion Exam Narrative: rt sided weakness-slight- baseline Const: General: comfortable; No confusion Orientation/consciousness: No confusion HENMT: Other: poor dental hygiene Resp: Effort & Inspection: normal respiratory effort Auscultation: clear to auscultation bilaterally Cardio: Rate: regular rate and tachycardic Rhythm: regular rhythm GI: Auscultation: normal bowel sounds Urinary Catheter: Urinary Catheter: patent and draining and urine clear Skin: General skin exam: normal color Neuro: General: No confusion Extrem: General: normal to inspection Psych: Mental Status: mental status grossly normal Affect: normal affect Objective Data Vital Signs Vital Signs: Vital Signs - 24 hr 10/06/24 11:43 10/06/24 12:00 10/06/24 13:15 Temperature 97.8 F Pulse Rate 119 H 134 H 137 H Respiratory Rate 14 Blood Pressure 166/108 H Pulse Oximetry 96 Oxygen Delivery 10/06/24 14:00 10/06/24 16:00 10/06/24 17:13 Temperature 99.6 F Pulse Rate 123 H 127 H 137 H Respiratory Rate 18 Blood Pressure 162/98 H Pulse Oximetry 96 Oxygen Delivery 10/06/24 20:00 10/06/24 20:00 10/06/24 21:45 Temperature 98.0 F Pulse Rate 113 H 62 Respiratory Rate 16 Blood Pressure 153/94 H Pulse Oximetry 97 Oxygen Delivery Room Air 10/07/24 00:00 10/07/24 04:00 10/07/24 05:36 Temperature 97.9 F Pulse Rate 98 92 58 L Respiratory Rate 16 Blood Pressure 139/81 Pulse Oximetry 96 Oxygen Delivery 10/07/24 08:16 Temperature Pulse Rate 110 H Respiratory Rate Blood Pressure Pulse Oximetry Oxygen Delivery Intake/Output Intake/Output: Intake & Output 10/04/24 10/05/24 10/06/24 10/07/24 23:59 23:59 23:59 23:59 Intake Total 3410 1120 300 Output Total 1200 850 500 Balance 2210 270 -200 Meds/Results Medications: Active Medications Generic Name Dose Route Start Last Admin Trade Name Freq PRN Reason Stop Dose Admin Acetaminophen 650 mg 10/06/24 16:25 10/06/24 18:58 Acetaminophen 325 Mg Tablet PO 650 mg Q4H PRN Administration Pain Rated 1-3 Amlodipine Besylate 10 mg 10/06/24 09:00 10/07/24 08:16 Amlodipine Besylate 10 Mg Tablet PO 10 mg DAILY ANGELINA Administration Dextrose 12.5 gm 10/05/24 15:52 Dextrose 50% 25 Gm/50 Ml Syringe IV PUSH PRN PRN Hypoglycemia Protocol Glucagon 1 mg 10/05/24 15:52 Glucagon For Inj 1 Mg Vial IM PRN PRN Hypoglycemia Protocol Glucose 15 gm 10/05/24 15:52 Glucose Oral Gel 15 Gm Of Glucse In 37.5 Gm Tube PO PRN PRN Hypoglycemia Protocol Dextrose 1,000 mls @ 100 mls/hr 10/05/24 15:52 Dextrose 5% 1,000 Ml IVPB PRN PRN Hypoglycemia Protocol Ibuprofen 600 mg 10/06/24 16:26 10/07/24 05:07 Ibuprofen 600 Mg Tablet PO 600 mg Q6H PRN Administration Pain Rated 4-6 Insulin Aspart 2 - 5 units 10/05/24 17:00 10/07/24 08:18 Insulin Aspart (*Bkc) 100 Units/Ml SUB-Q Not Given TIDWM ANGELINA Protocol Lactulose 20 gm 10/05/24 21:10 10/07/24 08:16 Lactulose 20 Gm/30 Ml Udc PO 20 gm QAM ANGELINA Administration Lidocaine 1 patch 10/06/24 13:50 10/07/24 08:15 Lidocaine 5% Patch TRANSDERM 1 patch DAILY ANGELINA Administration Losartan Potassium 100 mg 10/06/24 09:00 10/07/24 08:18 Losartan Potassium 100 Mg Tablet PO 100 mg DAILY ANGELINA Administration Metoprolol Succinate 12.5 mg 10/06/24 12:40 10/07/24 08:16 Metoprolol Succinate Ext Rel 12.5 Mg Tabcr PO 12.5 mg QAM ANGELINA Administration Ondansetron HCl 4 mg 10/05/24 15:58 10/06/24 04:08 Ondansetron Inj 4 Mg/2 Ml Vial IV PUSH 4 mg Q4H PRN Administration Nausea And Vomiting Polyethylene Glycol 17 gm 10/05/24 15:52 Polyethylene Glycol 3350 17 Gm Powd.Pack PO QAM PRN Constipation Radiology Results: ITS Impressions Chest/Abdomen/Pelvis CTA 10/05/24 07:46 Impression: No acute abnormalities seen. Diffuse hepatic steatosis. Pelvis Ultrasound 10/05/24 07:48 Impression: Unremarkable pelvic ultrasound. No evidence for torsion. Abdomen MRA 10/05/24 11:10 IMPRESSION: 1. Unremarkable MR angiogram with no hemodynamically significant stenosis of the abdominal aorta and its major branch arteries. Pelvis MRA 10/05/24 11:10 IMPRESSION: 1. Unremarkable MR angiogram with no hemodynamically significant stenosis of the abdominal aorta and its major branch arteries. Labs Labs: Laboratory Results - last 24 hr 10/06/24 10/06/24 10/06/24 11:20 16:43 21:50 WBC RBC Hgb Hct MCV MCH MCHC RDW Plt Count MPV Sodium Potassium Chloride Carbon Dioxide Anion Gap BUN Creatinine Estim Creat Clear Calc Estimated GFR Glucose POC Capillary Glucose 279 H 177 H 191 H Calcium 10/07/24 10/07/24 07:25 08:15 WBC 17.6 H RBC 3.61 L Hgb 11.3 L Hct 33.8 L MCV 93.6 MCH 31.3 MCHC 33.4 RDW 13.2 Plt Count 230 MPV 10.4 Sodium 136 L Potassium 3.9 Chloride 104 Carbon Dioxide 24 Anion Gap 8 BUN 18 H Creatinine 0.83 Estim Creat Clear Calc Not Reportable Estimated GFR > 60 Glucose 136 H POC Capillary Glucose 155 H Calcium 9.1 Quality VTE Prophylaxis VTE prophylaxis: mechanical ordered
[2024-10-07 11:52] LABS: Alanine Aminotransferase 108 U/L (6-35); Alkaline Phosphatase 91 U/L (38-126); Aspartate Amino Transferase 54 U/L (14-36); Bilirubin,Total 0.9 mg/dL (0.2-1.3); Cholesterol 114 mg/dL (0-200); HDL Direct 41 mg/dL; Triglycerides 124 mg/dL (<150)
[2024-10-07 12:01] LABS: LDL Cholesterol Direct 38 mg/dL
[2024-10-07 12:01] LABS: Glucose Point of Care 178 mg/dl (65-105)
[2024-10-07 16:50] LABS: Glucose Point of Care 143 mg/dl (65-105)
[2024-10-07 22:29] LABS: Glucose Point of Care 153 mg/dl (65-105)
[2024-10-08] VITALS (10 sets, daily range): BP systolic 109–138; BP diastolic 63–87; PULSE 49–117; RESP 14–18; TEMP 36.6–37.1; O2SAT 96–98
[2024-10-08 07:13] LABS: Hemoglobin 10.8 g/dL (12.0-15.0); Mean Corpuscular HGB Conc 32.7 g/dl (32-36); Mean Corpuscular Hemoglobin 30.9 pg (26-34); Mean Corpuscular Volume 94.6 fl (80-100); Mean Platelet Volume 10.5 fl (7.4-10.4); Platelet Count Result 217 k/mm3 (150-375); Red Blood Count 3.49 M/mm3 (4.2-5.4); Red Cell Distribution Width 13.4 % (11.5-14.5); White Blood Count 12.6 K/mm3 (4.5-10.0)
[2024-10-08 07:32] LABS: Anion Gap 10 mmol/L (4-12); Blood Urea Nitrogen 22 mg/dL (7-17); Calcium 9.2 mg/dL (8.4-10.2); Carbon Dioxide 23 mmol/L (22-30); Chloride 107 mmol/L (98-107); Estimated Glomerular Filt Rate 56; Glucose 106 mg/dL (65-110); Potassium 3.4 mmol/L (3.4-5.0); Sodium 140 mmol/L (137-145)
[2024-10-08 08:16] LABS: Glucose Point of Care 156 mg/dl (65-105)
[2024-10-08] MEDS: IBUPROFEN 600 MG TABLET PO ×2 (08:19→21:07)
[2024-10-08] MEDS: LIDOCAINE 5% PATCH 1 PATCH TRANSDERM (08:19)
[2024-10-08] MEDS: LOSARTAN POTASSIUM 100 MG TABLET PO (08:20)
[2024-10-08] MEDS: METOPROLOL SUCCINATE EXT REL 12.5 MG TABCR PO (08:20)
[2024-10-08] MEDS: amLODIPine BESYLATE 10 MG TABLET PO (08:20)
[2024-10-08 11:55] LABS: Glucose Point of Care 222 mg/dl (65-105)
[2024-10-08] MEDS: metroNIDAZOLE 500 MG/ISO 100ML 500 MG/100 ML BAG 100 MG IVPB ×3 (12:14→23:03)
[2024-10-08] MEDS: INSULIN ASPART (*BKC) 100 UNITS/ML SUB-Q (12:15)
[2024-10-08] MEDS: SODIUM CHLORIDE 0.9% IV 1,000 ML 75 ML IV CONT (12:15)
--- NOTE | 2024-10-08 15:20 | P.PNIM_ITS ---
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 She is admitted for sudden onset abdominal pain that radiated towards her back and into her chest. Pain was sharp, associated with nausea. Differentials are broad: gastroenteritis, bowel obstruction, cholecystitis, cholelithiasis, others. Troponin, CBC, CMP, lipase, EKG and chest x-ray ordered. Initial EKG shows no evidence of ischemia. Negative troponin, mildly elevated lactic acid 2.4, negative toxicological panel and UDS. She has an elevated leukocytosis of 18.5 which is unclear to be associated she has no signs or symptoms of infectious process especially with a negative urinalysis, no signs of pneumonia, no signs of intra-abdominal or thoracic infectious process. Hg and platelets are normal. Hypokalemia 2.8 which was repleted, normal creatinine, slight hyperglycemia, normal LFTs. Negative troponin. Negative lipase. Negative viral panel. CT of the chest abdomen pelvis with angiography ordered in ed. She was given fentanyl, Zofran and fluid bolus CT angiography of the chest abdomen and pelvis - no acute aortic syndrome, no evidence of a pulmonary embolism, no acute findings within the thorax or abdomen or pelvis. No acute aortic pathology. Given her persistent tachycardia and abdominal pain a pelvic ultrasound to assess for torsion was ordered: normal uterus and ovaries and a fluid distended urinary bladder. Soria catheter was inserted with release of almost 1 L of fluid. She reports stopping metformin but now states takes it daily instead of BID. Will add hypoglycemia protocol and SS.HgA1c ordered. When examined- her abd is soft and BS present. She doesn't have pain, no nausea. Wanted to drink water- will advance to clears and monitor. She does reports frequent constipations but not taking anything for it. Will add miralax. Will hold hydralazine as tachycardic. 10/06- ordered BC- WBC 14.7, 100.1 temp last night added ER metoprolol added lidocaine patch advance diet 10/07 repeat lipase add hepatitis panel abd ultrasound ordered- if no sludge or no acute findings- will consider HIDA scan 10/08- abd ultrasound: Findings within the gallbladder suggesting acute cholecystitis, in the appropriate clinical setting, as detailed above. Evaluation of the pancreas is limited by overlying bowel gas. will start antibiotics surgery consult NPO for now add IV fluids Time Spent With Patient Time with patient: 25 - 35 minutes Subjective Date/time seen: 10/08/24 15:20 Interval history: abd pain, chest pain, sob Narrative: 64 y.o with PMH of HTN, T2DM, neuropathy, esophageal stricture, ICH with residual RT sided hemiparesis. She had been dealing with residual dysarthria and tremor at baseline. She was supposed to be following with neurology at [facility] but has no means to get there. Per chart review, she was seen recently per her PCP for leg pain- gabapentin was started but she was not able to tolerate it due to nausea and vomiting. She also stopped taking her metformin at some point. She presented to ED for c/o sudden onset of abd pain that was radiating to her back and chest started around 11 pm last night. She described it as sharp, she felt nauseated but reports no vomiting. IN ED:her abd was tender but no distension. 2+ symmetric pulses in both arms and legs, chronic residual right-sided deficits and no new neurological findings on examination. Differentials are broad: gastroenteritis, bowel obstruction, cholecystitis, cholelithiasis, volvulus, aortic process such as dissection or aneurysm, ACS. Troponin, CBC, CMP, lipase, EKG and chest x-ray ordered. Initial EKG shows no evidence of ischemia. Negative troponin, mildly elevated lactic acid 2.4, negative toxicological panel and UDS. She has an elevated leukocytosis of 18.5 which is unclear to be associated she has no signs or symptoms of infectious process especially with a negative urinalysis, no signs of pneumonia, no signs of intra-abdominal or thoracic infectious process. Hg and platelets are normal. Hypokalemia 2.8 which was repleted, normal creatinine, slight hyperglycemia, normal LFTs. Negative troponin. Negative lip ase. Negative viral panel. CT of the chest abdomen pelvis with angiography ordered in ed. She was given fentanyl, Zofran and fluid bolus CT angiography of the chest abdomen and pelvis - no acute aortic syndrome, no evidence of a pulmonary embolism, no acute findings within the thorax or abdomen or pelvis. No acute aortic pathology. Given her persistent tachycardia and abdominal pain a pelvic ultrasound to assess for torsion was ordered: normal uterus and ovaries and a fluid distended urinary bladder. Soria catheter was inserted with release of almost 1 L of fluid. 10/06- pt is comfortable- pain is more isolated to rt rib area today and not chest or abd. Able to tolerate liquids- can advance diet. Will try lidocaine patch. She is unsure why she could not take beta blockers- it made her nauseated? but she is willing to try to help with elevated hr and BP. she is comfortable otherwise 10/07- stable- no acute events. lidocaine patch helps with pain. eating ok- no n/v. she had BM last night. Review of Systems Review of Systems: All systems reviewed & are unremarkable except as noted in HPI and below Constitutional: Constitutional: Denies chills Cardiovascular: Cardiovascular: Reports chest pain Respiratory: Respiratory: Denies chest congestion Gastrointestinal: Gastrointestinal: Reports abdominal pain Neurologic: Denies confusion Psychiatric: Psychiatric: Denies confusion Exam Narrative: rt sided weakness-slight- baseline Const: General: comfortable; No confusion Orientation/consciousness: No confusion HENMT: Other: poor dental hygiene Resp: Effort & Inspection: normal respiratory effort Auscultation: clear to auscultation bilaterally Cardio: Rate: regular rate and tachycardic Rhythm: regular rhythm GI: Auscultation: normal bowel sounds Urinary Catheter: Urinary Catheter: patent and draining and urine clear Skin: General skin exam: normal color Neuro: General: No confusion Extrem: General: normal to inspection Psych: Mental Status: mental status grossly normal Affect: normal affect Objective Data Vital Signs Vital Signs: Vital Signs - 24 hr 10/07/24 16:00 10/07/24 20:00 10/07/24 20:00 Temperature Pulse Rate 107 H 115 H Respiratory Rate Blood Pressure Pulse Oximetry Oxygen Delivery Room Air 10/07/24 22:00 10/08/24 00:00 10/08/24 04:00 Temperature 98.3 F Pulse Rate 60 98 72 Respiratory Rate 18 Blood Pressure 134/83 Pulse Oximetry 96 Oxygen Delivery 10/08/24 06:00 10/08/24 08:00 10/08/24 08:00 Temperature 97.9 F Pulse Rate 60 117 H Respiratory Rate 18 Blood Pressure 135/63 Pulse Oximetry 96 Oxygen Delivery Room Air 10/08/24 08:20 10/08/24 12:00 10/08/24 13:37 Temperature Pulse Rate 60 109 H Respiratory Rate Blood Pressure Pulse Oximetry Oxygen Delivery Room Air 10/08/24 14:32 Temperature 98.3 F Pulse Rate 49 L Respiratory Rate 16 Blood Pressure 109/63 Pulse Oximetry 98 Oxygen Delivery Intake/Output Intake/Output: Intake & Output 10/05/24 10/06/24 10/07/24 10/08/24 23:59 23:59 23:59 23:59 Intake Total 3410 1120 1520 290 Output Total 1200 850 700 500 Balance 2210 270 820 -210 Meds/Results Medications: Active Medications Generic Name Dose Route Start Last Admin Trade Name Freq PRN Reason Stop Dose Admin Acetaminophen 650 mg 10/06/24 16:25 10/06/24 18:58 Acetaminophen 325 Mg Tablet PO 650 mg Q4H PRN Administration Pain Rated 1-3 Amlodipine Besylate 10 mg 10/06/24 09:00 10/08/24 08:20 Amlodipine Besylate 10 Mg Tablet PO 10 mg DAILY ANGELINA Administration Dextrose 12.5 gm 10/05/24 15:52 Dextrose 50% 25 Gm/50 Ml Syringe IV PUSH PRN PRN Hypoglycemia Protocol Glucagon 1 mg 10/05/24 15:52 Glucagon For Inj 1 Mg Vial IM PRN PRN Hypoglycemia Protocol Glucose 15 gm 10/05/24 15:52 Glucose Oral Gel 15 Gm Of Glucse In 37.5 Gm Tube PO PRN PRN Hypoglycemia Protocol Dextrose 1,000 mls @ 100 mls/hr 10/05/24 15:52 Dextrose 5% 1,000 Ml IVPB PRN PRN Hypoglycemia Protocol Metronidazole 500 mg in 100 mls @ 100 mls/hr 10/08/24 12:00 10/08/24 12:14 Flagyl 500 Mg/Iso Soln 100 Ml IVPB 100 mls/hr Q6HR ANGELINA Administration Ceftriaxone Sodium 1 gm in 50 mls @ 100 mls/hr 10/08/24 11:00 10/08/24 12:44 Rocephin 1 Gm/Ns 50 Ml IVPB Infused Q24H ANGELINA Infusion Sodium Chloride 1,000 mls @ 75 mls/hr 10/08/24 11:25 10/08/24 12:15 Normal Saline Iv IV CONT 75 mls/hr .[id number] ANGELINA Administration Ibuprofen 600 mg 10/06/24 16:26 10/08/24 08:19 Ibuprofen 600 Mg Tablet PO 600 mg Q6H PRN Administration Pain Rated 4-6 Insulin Aspart 2 - 5 units 10/05/24 17:00 10/08/24 12:15 Insulin Aspart (*Bkc) 100 Units/Ml SUB-Q 2 units TIDWM ANGELINA Administration Protocol Lactulose 20 gm 10/05/24 21:10 10/08/24 09:19 Lactulose 20 Gm/30 Ml Udc PO Not Given QAM ANGELINA Lidocaine 1 patch 10/06/24 13:50 10/08/24 08:19 Lidocaine 5% Patch TRANSDERM 1 patch DAILY ANGELINA Administration Losartan Potassium 100 mg 10/06/24 09:00 10/08/24 08:20 Losartan Potassium 100 Mg Tablet PO 100 mg DAILY ANGELINA Administration Ondansetron HCl 4 mg 10/05/24 15:58 10/06/24 04:08 Ondansetron Inj 4 Mg/2 Ml Vial IV PUSH 4 mg Q4H PRN Administration Nausea And Vomiting Polyethylene Glycol 17 gm 10/05/24 15:52 Polyethylene Glycol 3350 17 Gm Powd.Pack PO QAM PRN Constipation Radiology Results: ITS Impressions Chest/Abdomen/Pelvis CTA 10/05/24 07:46 Impression: No acute abnormalities seen. Diffuse hepatic steatosis. Pelvis Ultrasound 10/05/24 07:48 Impression: Unremarkable pelvic ultrasound. No evidence for torsion. Abdomen MRA 10/05/24 11:10 IMPRESSION: 1. Unremarkable MR angiogram with no hemodynamically significant stenosis of the abdominal aorta and its major branch arteries. Pelvis MRA 10/05/24 11:10 IMPRESSION: 1. Unremarkable MR angiogram with no hemodynamically significant stenosis of the abdominal aorta and its major branch arteries. Abdomen Ultrasound 10/08/24 10:16 IMPRESSION: Findings within the gallbladder suggesting acute cholecystitis, in the appropriate clinical setting, as detailed above. Evaluation of the pancreas is limited by overlying bowel gas. Labs Labs: Laboratory Results - last 24 hr 10/07/24 10/07/24 10/08/24 16:47 22:26 06:56 WBC 12.6 H RBC 3.49 L Hgb 10.8 L Hct 33.0 L MCV 94.6 MCH 30.9 MCHC 32.7 RDW 13.4 Plt Count 217 MPV 10.5 H Sodium 140 Potassium 3.4 Chloride 107 Carbon Dioxide 23 Anion Gap 10 BUN 22 H Creatinine 1.00 Estim Creat Clear Calc Not Reportable Estimated GFR 56 L Glucose 106 POC Capillary Glucose 143 H 153 H Calcium 9.2 10/08/24 10/08/24 08:12 11:47 WBC RBC Hgb Hct MCV MCH MCHC RDW Plt Count MPV Sodium Potassium Chloride Carbon Dioxide Anion Gap BUN Creatinine Estim Creat Clear Calc Estimated GFR Glucose POC Capillary Glucose 156 H 222 H Calcium Quality VTE Prophylaxis VTE prophylaxis: mechanical ordered
--- NOTE | 2024-10-08 15:30 | P.CONGS_ITS ---
Assessment and Plan Assessment and plan (1) Acute calculous cholecystitis: Code(s): K80.00 - Calculus of gallbladder with acute cholecystitis without obstruction Status: Acute Assessment and Plan: * I have reviewed the imaging and discussed the findings with the patient. She has evidence of acute cholecystitis which would be the cause of her abdominal pain. I discussed that laparoscopic cholecystectomy would be recommended to treat her current cholecystitis and prevent recurrent attacks of pain. Patient feels that her pain has improved slightly since admission and she would like to try non operative management 1st. I would recommend low-fat diet and continue monitoring for any further symptoms. If symptoms are worsening, then I would recommend proceeding with laparoscopic cholecystectomy. If symptoms resolve, she may continue low-fat diet and follow up as needed. I did discuss that symptoms were more likely to recur but it is ultimately her decision whether not to proceed with surgery. 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: Code(s): I69.151 - Hemiplegia and hemiparesis following nontraumatic intracerebral hemorrhage affecting right dominant side Status: Acute (3) Basal ganglia hemorrhage: Code(s): I61.0 - Nontraumatic intracerebral hemorrhage in hemisphere, subcortical Status: Acute (4) Hypertension: Qualifiers: Hypertension type: primary hypertension Qualified Code(s): I10 - Essential (primary) hypertension Code(s): I10 - Essential (primary) hypertension Status: Acute History of Present Illness Consult details Consult date: 10/08/24 Reason for consult: other (Cholecystitis) Requesting physician: Giselle Proctor, JOAN Narrative: This is a 64-year-old woman who I am asked to see for acute cholecystitis. She presented to the emergency department 2 days ago with right upper quadrant abdominal pain. Her pain started on 10/05/2024. She had never experienced any pain like this in the past. She denies any specific food that she ate that cause this. She denies any nausea or vomiting. She denies any change in bowel habits. In the emergency department she was noted to have leukocytosis but CT of her abdomen and pelvis were normal. She was admitted for further workup and treatment of the pain. She then underwent gallbladder ultrasound which showed evidence of cholelithiasis and gallbladder wall thickening with findings consistent with cholecystitis. Her pain has been gradually improving but she still does have some right upper quadrant pain. Review of Systems 2 Review of Systems: All systems reviewed & are unremarkable except as noted in HPI and below Eyes: Eyes: Denies change in vision ENT: Denies hearing loss, Denies neck pain and Denies sore throat Cardiovascular: Cardiovascular: Denies chest pain and Denies dyspnea Respiratory: Respiratory: Denies cough, Denies dyspnea and Denies wheezing Gastrointestinal: Gastrointestinal: Reports as per HPI Genitourinary: Genitourinary: Denies hematuria and Denies dysuria Musculoskeletal: Musculoskeletal: Denies arthralgias, Denies joint swelling and Denies neck pain Allergic/Immunologic: Allergic/Immunologic: Denies wheezing [facility] Past Medical History Medical History Type 2 diabetes mellitus with hyperglycemia Essential (primary) hypertension Basal ganglia hemorrhage Family History Family History Other Diabetes mellitus Family history of malignant neoplasm Social History Social History Smoking status: Former smoker Tobacco type: cigarettes Second hand tobacco smoke exposure: No Smoking end date: 08/23/84 Alcohol intake: never Substance use: never Substance use type: does not use Do You Feel Safe in your Home?: Yes Lack of Transportation: No Lack of Food: Never True Current Housing: I Have Housing Concerned About Future Housing: No Difficulty Paying Gas/Electric Bills: No Difficulty Paying for Meds: No Currently Unemployed: No Education: High School Diploma/GED Difficulty w/ Childcare or Family Care: No Spiritual care concerns: No Meds Home Medications and Allergies Home Medications ?Medication ?Instructions ?Recorded ?Confirmed ?Type amlodipine 10 mg tablet (Norvasc) 10 mg PO DAILY #90 tabs 10/05/24 10/05/24 Rx hydralazine 50 mg tablet 50 mg PO TID #90 tabs 10/05/24 10/05/24 Rx losartan 100 mg tablet 100 mg PO DAILY #90 tabs 10/05/24 10/05/24 Rx Allergies Allergy/AdvReac Type Severity Reaction Status Date / Time No Known Allergies Allergy Verified 10/02/24 13:59 Vital Signs Vital Signs - 24 hr 10/07/24 16:00 10/07/24 20:00 10/07/24 20:00 Temperature Pulse Rate 107 H 115 H Respiratory Rate Blood Pressure Pulse Oximetry Oxygen Delivery Room Air 10/07/24 22:00 10/08/24 00:00 10/08/24 04:00 Temperature 98.3 F Pulse Rate 60 98 72 Respiratory Rate 18 Blood Pressure 134/83 Pulse Oximetry 96 Oxygen Delivery 10/08/24 06:00 10/08/24 08:00 10/08/24 08:00 Temperature 97.9 F Pulse Rate 60 117 H Respiratory Rate 18 Blood Pressure 135/63 Pulse Oximetry 96 Oxygen Delivery Room Air 10/08/24 08:20 10/08/24 12:00 10/08/24 13:37 Temperature Pulse Rate 60 109 H Respiratory Rate Blood Pressure Pulse Oximetry Oxygen Delivery Room Air 10/08/24 14:32 Temperature 98.3 F Pulse Rate 49 L Respiratory Rate 16 Blood Pressure 109/63 Pulse Oximetry 98 Oxygen Delivery Exam 2 Const: General: alert; No acute distress Orientation/consciousness: patient oriented x3 Limitations: no limitations HENMT: Head: normocephalic and atraumatic Ears: hearing grossly normal bilaterally Face/Nose/Sinus: Normal external nose present and Normal nares present Mouth: Yes Normal oral and palatal mucosa present and Yes moist mucous membranes Eyes: General: appearance normal, both eyes and all related structures C onjunctivae: conjunctivae normal Sclera: sclerae normal Pupils: Equal, round and reactive pupils present EOM: EOMs intact bilaterally Neck: Neck: normal visual inspection, full ROM, no lymphadenopathy, supple and no JVD Lymphatic: no lymphadenopathy noted Chest: Chest palpation & inspection: normal inspection of the chest Resp: Effort & Inspection: normal respiratory effort and able to speak in complete sentences Auscultation: clear to auscultation bilaterally P ercussion: percussion normal Cardio: Jugular venous distension: no JVD Rate: regular rate Rhythm: r egular rhythm Heart sounds: S1 normal heart sound present and S2 normal heart sound present Peripheral pulses: Peripheral pulses 2+ throughout GI: Inspection: normal to inspection GI Palp: Yes Soft to palpation, Yes Tenderness to palpation present (GI) (Right upper quadrant), No Guarding due to palpation present (GI), No Hepatomegaly present and No Rebound tenderness present Percussion: Yes normal to percussion Auscultation: normal bowel sounds : General: Yes no CVA tenderness Back/Spine/Pelvis: Back: no CVA tenderness Skin: General skin exam: normal color and dry skin Neuro: General: patient oriented x3, gait normal, moves all extremities, no focal motor deficits and CN's II-XI intact bilaterally Cranial nerves: Yes Equal, round and reactive pupils present Speech: normal speech Extrem: General: normal to inspection and capillary refill normal Results Labs 10/08/24 06:56 10/08/24 06:56 Labs: Abnormal lab results 10/07/24 10/07/24 10/08/24 Range/Units 16:47 22:26 06:56 WBC 12.6 H (4.5-10.0) K/mm3 RBC 3.49 L (4.2-5.4) M/mm3 Hgb 10.8 L (12.0-15.0) g/dL Hct 33.0 L (37.0-47.0) % MPV 10.5 H (7.4-10.4) fl BUN 22 H (7-17) mg/dL Estimated GFR 56 L (59 - ) POC Capillary Glucose 143 H 153 H (65-105) mg/dl 10/08/24 10/08/24 Range/Units 08:12 11:47 WBC (4.5-10.0) K/mm3 RBC (4.2-5.4) M/mm3 Hgb (12.0-15.0) g/dL Hct (37.0-47.0) % MPV (7.4-10.4) fl BUN (7-17) mg/dL Estimated GFR (59 - ) POC Capillary Glucose 156 H 222 H (65-105) mg/dl Diabetes panel 10/08/24 Range/Units 06:56 Sodium 140 (137-145) mmol/L Potassium 3.4 (3.4-5.0) mmol/L Chloride 107 (98-107) mmol/L Carbon Dioxide 23 (22-30) mmol/L BUN 22 H (7-17) mg/dL Creatinine 1.00 (0.7-1.0) mg/dL Glucose 106 (65-110) mg/dL Calcium 9.2 (8.4-10.2) mg/dL Calcium panel 10/08/24 Range/Units 06:56 Calcium 9.2 (8.4-10.2) mg/dL Pituitary panel 10/08/24 Range/Units 06:56 Sodium 140 (137-145) mmol/L Potassium 3.4 (3.4-5.0) mmol/L Chloride 107 (98-107) mmol/L Carbon Dioxide 23 (22-30) mmol/L BUN 22 H (7-17) mg/dL Creatinine 1.00 (0.7-1.0) mg/dL Glucose 106 (65-110) mg/dL Calcium 9.2 (8.4-10.2) mg/dL Adrenal panel 10/08/24 Range/Units 06:56 Sodium 140 (137-145) mmol/L Potassium 3.4 (3.4-5.0) mmol/L Chloride 107 (98-107) mmol/L Carbon Dioxide 23 (22-30) mmol/L BUN 22 H (7-17) mg/dL Creatinine 1.00 (0.7-1.0) mg/dL Glucose 106 (65-110) mg/dL Calcium 9.2 (8.4-10.2) mg/dL All other labs normal. Imaging Additional studies: ITS Impressions Chest/Abdomen/Pelvis CTA 10/05/24 07:46 Impression: No acute abnormalities seen. Diffuse hepatic steatosis. Pelvis Ultrasound 10/05/24 07:48 Impression: Unremarkable pelvic ultrasound. No evidence for torsion. Abdomen MRA 10/05/24 11:10 IMPRESSION: 1. Unremarkable MR angiogram with no hemodynamically significant stenosis of the abdominal aorta and its major branch arteries. Pelvis MRA 10/05/24 11:10 IMPRESSION: 1. Unremarkable MR angiogram with no hemodynamically significant stenosis of the abdominal aorta and its major branch arteries. Abdomen Ultrasound 10/08/24 10:16 IMPRESSION: Findings within the gallbladder suggesting acute cholecystitis, in the appropriate clinical setting, as detailed above. Evaluation of the pancreas is limited by overlying bowel gas.
[2024-10-08 16:58] LABS: Glucose Point of Care 86 mg/dl (65-105)
[2024-10-08 20:14] LABS: Glucose Point of Care 182 mg/dl (65-105)
[2024-10-08 23:39] LABS: Add Urine Microscopic? YES; Appearance Urine Turbid (Clear); Bacteria Urine 2+ /hpf; Bilirubin Urine Negative (Negative); Blood Urine 2+ (Negative); Color Urine Yellow (Yellow); Glucose Urine UA Negative (Negative); Ketones Urine Negative (Negative); Leukocyte Esterase Ur 3+ LEU/UL (Negative); Need Manual Microscopic Reviewed; Nitrate Urine Positive (Negative); Non Pathogenic Casts >20; Protein Urine 2+ mg/dL (Negative); RBC Urine 0-2 /hpf (0-2); Specific Grav Ur 1.015 (1.001-1.035); Squamous Epithelial Cell Urine Moderate /hpf (Few); Urobilinogen Urine 0.2 mg/dL (<2.0); WBC Urine >100 /hpf (0-3)
[2024-10-09] VITALS (9 sets, daily range): BP systolic 130–150; BP diastolic 78–88; PULSE 52–103; RESP 16–18; TEMP 36.2–37.3; O2SAT 98–99
[2024-10-09] MEDS: SODIUM CHLORIDE 0.9% IV 1,000 ML 75 ML IV CONT (05:15)
[2024-10-09] MEDS: IBUPROFEN 600 MG TABLET PO ×2 (05:15→19:58)
[2024-10-09] MEDS: metroNIDAZOLE 500 MG/ISO 100ML 500 MG/100 ML BAG 100 MG IVPB ×3 (05:16→17:34)
[2024-10-09 06:51] LABS: Hematocrit 30.4 % (37.0-47.0); Hemoglobin 9.9 g/dL (12.0-15.0); Mean Corpuscular HGB Conc 32.6 g/dl (32-36); Mean Corpuscular Hemoglobin 30.7 pg (26-34); Mean Corpuscular Volume 94.4 fl (80-100); Mean Platelet Volume 10.6 fl (7.4-10.4); Platelet Count Result 220 k/mm3 (150-375); Red Blood Count 3.22 M/mm3 (4.2-5.4); Red Cell Distribution Width 13.2 % (11.5-14.5); White Blood Count 11.5 K/mm3 (4.5-10.0)
[2024-10-09 07:02] LABS: Anion Gap 11 mmol/L (4-12); Blood Urea Nitrogen 19 mg/dL (7-17); Calcium 8.6 mg/dL (8.4-10.2); Carbon Dioxide 21 mmol/L (22-30); Chloride 109 mmol/L (98-107); Estimated Glomerular Filt Rate > 60; Glucose 98 mg/dL (65-110); Potassium 3.1 mmol/L (3.4-5.0); Sodium 141 mmol/L (137-145)
[2024-10-09 07:59] LABS: Glucose Point of Care 109 mg/dl (65-105)
[2024-10-09] MEDS: amLODIPine BESYLATE 10 MG TABLET PO (08:34)
[2024-10-09] MEDS: LOSARTAN POTASSIUM 100 MG TABLET PO (08:34)
[2024-10-09] MEDS: LIDOCAINE 5% PATCH 1 PATCH TRANSDERM (08:35)
--- NOTE | 2024-10-09 10:41 | P.CDI_ITS ---
CDI Query Clarification Request BMI: 18.3 Nutritional Diagnostic Statement: Please refer to the comprehensive nutrition assessment for further information. If you agree with diagnosis of Severe protein calorie malnutrition related to chronic abdominal pain, loss of appetite as evidenced by weight loss -13%/4 months; intake <75% needs >1 month; severe muscle wasting and fat loss. Please specify severity if known: * Mild * Moderate * Severe * Other/Unknown
--- NOTE | 2024-10-09 10:52 | PCNFU ---
Nutrition Follow-Up Complete: Severe protein calorie malnutrition related to chronic abdominal pain, loss of appetite as evidenced by weight loss -13%/4 months; intake <75% needs >1 month; severe muscle wasting and fat loss Diet order - Advanced to low fat, low fiber Adequate PO intake when diet is advanced - Progressing with intakes 50 meals Goal: Pt current nutrition is Low fat , low fiber diet. Ensure Enlive TID (350 kcal, 20 g protein). Nutrition recommendation: No new recommendations. Continue current orders. Agree with orders Last recorded weight is 41.2 kg. Bowel Motility: +1 BM 10/07/24 Labs Reviewed: Hgb 9.9, Hct 30.4, K+ 3.1, BUN 19, Glu 109 Meds Noted: Lactulose, miralax, zofran Skin:No pressure Additional Notes: Pt with cholecystitis, abdominal pain is improving. Intakes ~ 50% on low fat, low fiber diet. Continue current diet orders. Monitoring diet orders, plan of care, intakes, weights, labs, output Follow up in 3 days
[2024-10-09] MEDS: POTASSIUM CHLORIDE 20 MEQ ER TABLET 40 MEQ PO (11:16)
[2024-10-09 11:38] LABS: Glucose Point of Care 163 mg/dl (65-105)
--- NOTE | 2024-10-09 11:57 | P.PNGS_ITS ---
Progress Note: A&P Assessment and Plan (1) Acute calculous cholecystitis: Code(s): K80.00 - Calculus of gallbladder with acute cholecystitis without obstruction Status: Acute Assessment and Plan: * Patient improving with conservative management. She is wanting to avoid surgery at this time and seems to be doing well with a low fat diet. * Okay to discharge from a surgical standpoint on a low fat diet. Follow-up only as needed. 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 Nur. Subjective Subjective Date/Time Seen: 10/09/24 11:57 Patient reports: no new complaints, feels better, tolerating a regular diet (low fat) and afebrile Interval history: Doing well. Abdominal pain much better. No pain at this time. She denies nausea or vomiting. Exam GI: Inspection: non-distended GI Palp: Yes Soft to palpation, Yes Tenderness to palpation present (GI) (RUQ), No Guarding due to palpation present (GI) and No Rebound tenderness present Auscultation: normal bowel sounds Objective Data Vital Signs Vital Signs: Vital Signs - 24 hr 10/08/24 12:00 10/08/24 13:37 10/08/24 14:32 Temperature 98.3 F Pulse Rate 109 H 49 L Respiratory Rate 16 Blood Pressure 109/63 Pulse Oximetry 98 Oxygen Delivery Room Air 10/08/24 16:00 10/08/24 20:00 10/08/24 20:00 Temperature Pulse Rate 95 73 Respiratory Rate Blood Pressure Pulse Oximetry Oxygen Delivery Room Air 10/08/24 21:06 10/09/24 00:00 10/09/24 04:00 Temperature 98.7 F Pulse Rate 75 83 73 Respiratory Rate 14 Blood Pressure 138/87 Pulse Oximetry 96 Oxygen Delivery 10/09/24 06:00 10/09/24 08:15 10/09/24 08:15 Temperature 97.2 F L Pulse Rate 87 65 Respiratory Rate 18 Blood Pressure 139/82 Pulse Oximetry 98 Oxygen Delivery Room Air Intake/Output Intake/Output: Intake & Output 10/06/24 10/07/24 10/08/24 10/09/24 23:59 23:59 23:59 23:59 Intake Total 1120 9044 098 3302 Output Total 850 700 700 500 Balance 270 820 230 850 Meds/Results Medications: Active Medications Generic Name Dose Route Start Last Admin Trade Name Freq PRN Reason Stop Dose Admin Acetaminophen 650 mg 10/06/24 16:25 10/06/24 18:58 Acetaminophen 325 Mg Tablet PO 650 mg Q4H PRN Administration Pain Rated 1-3 Amlodipine Besylate 10 mg 10/06/24 09:00 10/09/24 08:34 Amlodipine Besylate 10 Mg Tablet PO 10 mg DAILY ANGELINA Administration Dextrose 12.5 gm 10/05/24 15:52 Dextrose 50% 25 Gm/50 Ml Syringe IV PUSH PRN PRN Hypoglycemia Protocol Glucagon 1 mg 10/05/24 15:52 Glucagon For Inj 1 Mg Vial IM PRN PRN Hypoglycemia Protocol Glucose 15 gm 10/05/24 15:52 Glucose Oral Gel 15 Gm Of Glucse In 37.5 Gm Tube PO PRN PRN Hypoglycemia Protocol Dextrose 1,000 mls @ 100 mls/hr 10/05/24 15:52 Dextrose 5% 1,000 Ml IVPB PRN PRN Hypoglycemia Protocol Metronidazole 500 mg in 100 mls @ 100 mls/hr 10/08/24 12:00 10/09/24 05:16 Flagyl 500 Mg/Iso Soln 100 Ml IVPB 100 mls/hr Q6HR ANGELINA Administration Ceftriaxone Sodium 1 gm in 50 mls @ 100 mls/hr 10/08/24 11:00 10/09/24 11:15 Rocephin 1 Gm/Ns 50 Ml IVPB 100 mls/hr Q24H ANGELINA Administration Sodium Chloride 1,000 mls @ 75 mls/hr 10/08/24 11:25 10/09/24 05:15 Normal Saline Iv IV CONT 75 mls/hr .[id number] ANGELINA Administration Ibuprofen 600 mg 10/06/24 16:26 10/09/24 05:15 Ibuprofen 600 Mg Tablet PO 600 mg Q6H PRN Administration Pain Rated 4-6 Insulin Aspart 2 - 5 units 10/05/24 17:00 10/09/24 11:42 Insulin Aspart (*Bkc) 100 Units/Ml SUB-Q Not Given [facility] Protocol Lactulose 20 gm 10/05/24 21:10 10/09/24 08:36 Lactulose 20 Gm/30 Ml Udc PO Not Given [facility] Lidocaine 1 patch 10/06/24 13:50 10/09/24 08:35 Lidocaine 5% Patch TRANSDERM 1 patch DAILY ANGELINA Administration Losartan Potassium 100 mg 10/06/24 09:00 10/09/24 08:34 Losartan Potassium 100 Mg Tablet PO 100 mg DAILY [facility] Administration Ondansetron HCl 4 mg 10/05/24 15:58 10/06/24 04:08 Ondansetron Inj 4 Mg/2 Ml Vial IV PUSH 4 mg Q4H PRN Administration Nausea And Vomiting Polyethylene Glycol 17 gm 10/05/24 15:52 Polyethylene Glycol 3350 17 Gm Powd.Pack PO QAM PRN Constipation Potassium Chloride 40 meq 10/10/24 09:00 Potassium Chloride 20 Meq Packet (For Liquid) PO DAILY [facility] Radiology Results: ITS Impressions Chest/Abdomen/Pelvis CTA 10/05/24 07:46 Impression: No acute abnormalities seen. Diffuse hepatic steatosis. Pelvis Ultrasound 10/05/24 07:48 Impression: Unremarkable pelvic ultrasound. No evidence for torsion. Abdomen MRA 10/05/24 11:10 IMPRESSION: 1. Unremarkable MR angiogram with no hemodynamically significant stenosis of the abdominal aorta and its major branch arteries. Pelvis MRA 10/05/24 11:10 IMPRESSION: 1. Unremarkable MR angiogram with no hemodynamically significant stenosis of the abdominal aorta and its major branch arteries. Abdomen Ultrasound 10/08/24 10:16 IMPRESSION: Findings within the gallbladder suggesting acute cholecystitis, in the appropriate clinical setting, as detailed above. Evaluation of the pancreas is limited by overlying bowel gas. Labs Labs: Laboratory Results - last 24 hr 10/08/24 10/08/24 10/08/24 16:54 19:45 22:59 WBC RBC Hgb Hct MCV MCH MCHC RDW Plt Count MPV Sodium Potassium Chloride Carbon Dioxide Anion Gap BUN Creatinine Estim Creat Clear Calc Estimated GFR Glucose POC Capillary Glucose 86 182 H Calcium Urine Color Yellow Urine Appearance Turbid H Urine pH 5.0 Ur Specific [place] 1.015 Urine Protein 2+ H Urine Glucose (UA) Negative Urine Ketones Negative Ur Blood (Man) 2+ H Urine Nitrate Positive H Urine Bilirubin Negative Urine Urobilinogen 0.2 Add Ur Microanalysis Reviewed Leukocyte Esterase Rfl 3+ H Urine RBC 0-2 Urine WBC >100 H Ur Squamous Epith Cells Moderate Urine Bacteria 2+ H Urine Casts >20 10/09/24 10/09/24 10/09/24 06:09 07:52 11:34 WBC 11.5 H RBC 3.22 L Hgb 9.9 L Hct 30.4 L MCV 94.4 MCH 30.7 MCHC 32.6 RDW 13.2 Plt Count 220 MPV 10.6 H Sodium 141 Potassium 3.1 L Chloride 109 H Carbon Dioxide 21 L Anion Gap 11 BUN 19 H Creatinine 0.74 Estim Creat Clear Calc Not Reportable Estimated GFR > 60 Glucose 98 POC Capillary Glucose 109 H 163 H Calcium 8.6 Urine Color Urine Appearance Urine pH Ur Specific [place] Urine Protein Urine Glucose (UA) Urine Ketones Ur Blood (Man) Urine Nitrate Urine Bilirubin Urine Urobilinogen Add Ur Microanalysis Leukocyte Esterase Rfl Urine RBC Urine WBC Ur Squamous Epith Cells Urine Bacteria Urine Casts
--- NOTE | 2024-10-09 15:03 | P.PNIM_ITS ---
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 She is admitted for sudden onset abdominal pain that radiated towards her back and into her chest. Pain was sharp, associated with nausea. Differentials are broad: gastroenteritis, bowel obstruction, cholecystitis, cholelithiasis, others. Troponin, CBC, CMP, lipase, EKG and chest x-ray ordered. Initial EKG shows no evidence of ischemia. Negative troponin, mildly elevated lactic acid 2.4, negative toxicological panel and UDS. She has an elevated leukocytosis of 18.5 which is unclear to be associated she has no signs or symptoms of infectious process especially with a negative urinalysis, no signs of pneumonia, no signs of intra-abdominal or thoracic infectious process. Hg and platelets are normal. Hypokalemia 2.8 which was repleted, normal creatinine, slight hyperglycemia, normal LFTs. Negative troponin. Negative lipase. Negative viral panel. CT of the chest abdomen pelvis with angiography ordered in ed. She was given fentanyl, Zofran and fluid bolus CT angiography of the chest abdomen and pelvis - no acute aortic syndrome, no evidence of a pulmonary embolism, no acute findings within the thorax or abdomen or pelvis. No acute aortic pathology. Given her persistent tachycardia and abdominal pain a pelvic ultrasound to assess for torsion was ordered: normal uterus and ovaries and a fluid distended urinary bladder. Soria catheter was inserted with release of almost 1 L of fluid. She reports stopping metformin but now states takes it daily instead of BID. Will add hypoglycemia protocol and SS.HgA1c ordered. When examined- her abd is soft and BS present. She doesn't have pain, no nausea. Wanted to drink water- will advance to clears and monitor. She does reports frequent constipations but not taking anything for it. Will add miralax. Will hold hydralazine as tachycardic. 10/06- ordered BC- WBC 14.7, 100.1 temp last night added ER metoprolol added lidocaine patch advance diet 10/07 repeat lipase add hepatitis panel abd ultrasound ordered- if no sludge or no acute findings- will consider HIDA scan 10/08- abd ultrasound: Findings within the gallbladder suggesting acute cholecystitis, in the appropriate clinical setting, as detailed above. Evaluation of the pancreas is limited by overlying bowel gas. will start antibiotics surgery consult NPO for now add IV fluids 10/09 wbc improving. surgery consulted. pt doesnot want to do surgery. continue antibiotics overnight- downgrade to po tomorrow and d/c home knows to f/u with surgery if abd pain returns. Time Spent With Patient Time with patient: 25 - 35 minutes Subjective Date/time seen: 10/09/24 15:04 Interval history: abd pain, chest pain, sob Narrative: 64 y.o with PMH of HTN, T2DM, neuropathy, esophageal stricture, ICH with residual RT sided hemiparesis. She had been dealing with residual dysarthria and tremor at baseline. She was supposed to be following with neurology at [facility] but has no means to get there. Per chart review, she was seen recently per her PCP for leg pain- gabapentin was started but she was not able to tolerate it due to nausea and vomiting. She also stopped taking her metformin at some point. She presented to ED for c/o sudden onset of abd pain that was radiating to her back and chest started around 11 pm last night. She described it as sharp, she felt nauseated but reports no vomiting. IN ED:her abd was tender but no distension. 2+ symmetric pulses in both arms and legs, chronic residual right-sided deficits and no new neurological findings on examination. Differentials are broad: gastroenteritis, bowel obstruction, cholecystitis, cholelithiasis, volvulus, aortic process such as dissection or aneurysm, ACS. Troponin, CBC, CMP, lipase, EKG and chest x-ray ordered. Initial EKG shows no evidence of ischemia. Negative troponin, mildly elevated lactic acid 2.4, negative toxicological panel and UDS. She has an elevated leukocytosis of 18.5 which is unclear to be associated she has no signs or symptoms of infectious process especially with a negative urinalysis, no signs of pneumonia, no signs of intra-abdominal or thoracic infectious process. Hg and platelets are normal. Hypokalemia 2.8 which was repleted, normal creatinine, slight hyperglycemia, normal LFTs. Negative troponin. Negative lipase. Negative viral panel. CT of the chest abdomen pelvis with angiography ordered in ed. She was given fentanyl, Zofran and fluid bolus CT angiography of the chest abdomen and pelvis - no acute aortic syndrome, no evidence of a pulmonary embolism, no acute findings within the thorax or abdomen or pelvis. No acute aortic pathology. Given her persistent tachycardia and abdominal pain a pelvic ultrasound to assess for torsion was ordered: normal uterus and ovaries and a fluid distended urinary bladder. Soria catheter was inserted with release of almost 1 L of fluid. 10/06- pt is comfortable- pain is more isolated to rt rib area today and not chest or abd. Able to tolerate liquids- can advance diet. Will try lidocaine patch. She is unsure why she could not take beta blockers- it made her nauseated? but she is willing to try to help with elevated hr and BP. she is comfortable otherwise 10/07- stable- no acute events. lidocaine patch helps with pain. eating ok- no n/v. she had BM last night. 10/08 surgery consult 10/09 pt doesnot want to do surgery. watch overnight and d/c tomorrow with low fat diet. Review of Systems Review of Systems: All systems reviewed & are unremarkable except as noted in HPI and below Constitutional: Constitutional: Denies chills Cardiovascular: Cardiovascular: Reports chest pain Respiratory: Respiratory: Denies chest congestion Gastrointestinal: Gastrointestinal: Reports abdominal pain Neurologic: Denies confusion Psychiatric: Psychiatric: Denies confusion Exam Narrative: rt sided weakness-slight- baseline abd pain is better with diet control Const: General: comfortable; No confusion Orientation/consciousness: No confusion HENMT: Other: poor dental hygiene Resp: Effort & Inspection: normal respiratory effort Auscultation: clear to auscultation bilaterally Cardio: Rate: regular rate and tachycardic Rhythm: regular rhythm GI: Auscultation: normal bowel sounds Urinary Catheter: Urinary Catheter: patent and draining and urine clear Skin: General skin exam: normal color Neuro: General: No confusion Extrem: General: normal to inspection Psych: Mental Status: mental status grossly normal Affect: normal affect Objective Data Vital Signs Vital Signs: Vital Signs - 24 hr 10/08/24 16:00 10/08/24 20:00 10/08/24 20:00 Temperature Pulse Rate 95 73 Respiratory Rate Blood Pressure Pulse Oximetry Oxygen Delivery Room Air 10/08/24 21:06 10/09/24 00:00 10/09/24 04:00 Temperature 98.7 F Pulse Rate 75 83 73 Respiratory Rate 14 Blood Pressure 138/87 Pulse Oximetry 96 Oxygen Delivery 10/09/24 06:00 10/09/24 08:15 10/09/24 08:15 Temperature 97.2 F L Pulse Rate 87 65 Respiratory Rate 18 Blood Pressure 139/82 Pulse Oximetry 98 Oxygen Delivery Room Air 10/09/24 12:00 10/09/24 13:12 Temperature Pulse Rate 52 L Respiratory Rate Blood Pressure Pulse Oximetry Oxygen Delivery Room Air Intake/Output Intake/Output: Intake & Output 10/06/24 10/07/24 10/08/24 10/09/24 23:59 23:59 23:59 23:59 Intake Total 1120 1424 841 9424 Output Total 850 700 700 500 Balance 270 246 618 8300 Meds/Results Medications: Active Medications Generic Name Dose Route Start Last Admin Trade Name Freq PRN Reason Stop Dose Admin Acetaminophen 650 mg 10/06/24 16:25 10/06/24 18:58 Acetaminophen 325 Mg Tablet PO 650 mg Q4H PRN Administration Pain Rated 1-3 Amlodipine Besylate 10 mg 10/06/24 09:00 10/09/24 08:34 Amlodipine Besylate 10 Mg Tablet PO 10 mg DAILY ANGELINA Administration Dextrose 12.5 gm 10/05/24 15:52 Dextrose 50% 25 Gm/50 Ml Syringe IV PUSH PRN PRN Hypoglycemia Protocol Glucagon 1 mg 10/05/24 15:52 Glucagon For Inj 1 Mg Vial IM PRN PRN Hypoglycemia Protocol Glucose 15 gm 10/05/24 15:52 Glucose Oral Gel 15 Gm Of Glucse In 37.5 Gm Tube PO PRN PRN Hypoglycemia Protocol Dextrose 1,000 mls @ 100 mls/hr 10/05/24 15:52 Dextrose 5% 1,000 Ml IVPB PRN PRN Hypoglycemia Protocol Metronidazole 500 mg in 100 mls @ 100 mls/hr 10/08/24 12:00 10/09/24 13:22 Flagyl 500 Mg/Iso Soln 100 Ml IVPB Infused Q6HR [facility] Infusion Ceftriaxone Sodium 1 gm in 50 mls @ 100 mls/hr 10/08/24 11:00 10/09/24 11:45 Rocephin 1 Gm/Ns 50 Ml IVPB Infused Q24H [facility] Infusion Sodium Chloride 1,000 mls @ 75 mls/hr 10/08/24 11:25 10/09/24 05:15 Normal Saline Iv IV CONT 75 mls/hr .[id number] ANGELINA Administration Ibuprofen 600 mg 10/06/24 16:26 10/09/24 05:15 Ibuprofen 600 Mg Tablet PO 600 mg Q6H PRN Administration Pain Rated 4-6 Insulin Aspart 2 - 5 units 10/05/24 17:00 10/09/24 11:42 Insulin Aspart (*Bkc) 100 Units/Ml SUB-Q Not Given TIDWM [facility] Protocol Lactulose 20 gm 10/05/24 21:10 10/09/24 08:36 Lactulose 20 Gm/30 Ml Udc PO Not Given QAM [facility] Lidocaine 1 patch 10/06/24 13:50 10/09/24 08:35 Lidocaine 5% Patch TRANSDERM 1 patch DAILY [facility] Administration Losartan Potassium 100 mg 10/06/24 09:00 10/09/24 08:34 Losartan Potassium 100 Mg Tablet PO 100 mg DAILY [facility] Administration Ondansetron HCl 4 mg 10/05/24 15:58 10/06/24 04:08 Ondansetron Inj 4 Mg/2 Ml Vial IV PUSH 4 mg Q4H PRN Administration Nausea And Vomiting Polyethylene Glycol 17 gm 10/05/24 15:52 Polyethylene Glycol 3350 17 Gm Powd.Pack PO QAM PRN Constipation Potassium Chloride 40 meq 10/10/24 09:00 Potassium Chloride 20 Meq Packet (For Liquid) PO DAILY [facility] Radiology Results: ITS Impressions Chest/Abdomen/Pelvis CTA 10/05/24 07:46 Impression: No acute abnormalities seen. Diffuse hepatic steatosis. Pelvis Ultrasound 10/05/24 07:48 Impression: Unremarkable pelvic ultrasound. No evidence for torsion. Abdomen MRA 10/05/24 11:10 IMPRESSION: 1. Unremarkable MR angiogram with no hemodynamically significant stenosis of the abdominal aorta and its major branch arteries. Pelvis MRA 10/05/24 11:10 IMPRESSION: 1. Unremarkable MR angiogram with no hemodynamically significant stenosis of the abdominal aorta and its major branch arteries. Abdomen Ultrasound 10/08/24 10:16 IMPRESSION: Findings within the gallbladder suggesting acute cholecystitis, in the appropriate clinical setting, as detailed above. Evaluation of the pancreas is limited by overlying bowel gas. Labs Labs: Laboratory Results - last 24 hr 10/08/24 10/08/24 10/08/24 16:54 19:45 22:59 WBC RBC Hgb Hct MCV MCH MCHC RDW Plt Count MPV Sodium Potassium Chloride Carbon Dioxide Anion Gap BUN Creatinine Estim Creat Clear Calc Estimated GFR Glucose POC Capillary Glucose 86 182 H Calcium Urine Color Yellow Urine Appearance Turbid H Urine pH 5.0 Ur Specific [place] 1.015 Urine Protein 2+ H Urine Glucose (UA) Negative Urine Ketones Negative Ur Blood (Man) 2+ H Urine Nitrate Positive H Urine Bilirubin Negative Urine Urobilinogen 0.2 Add Ur Microanalysis Reviewed Leukocyte Esterase Rfl 3+ H Urine RBC 0-2 Urine WBC >100 H Ur Squamous Epith Cells Moderate Urine Bacteria 2+ H Urine Casts >20 10/09/24 10/09/24 10/09/24 06:09 07:52 11:34 WBC 11.5 H RBC 3.22 L Hgb 9.9 L Hct 30.4 L MCV 94.4 MCH 30.7 MCHC 32.6 RDW 13.2 Plt Count 220 MPV 10.6 H Sodium 141 Potassium 3.1 L Chloride 109 H Carbon Dioxide 21 L Anion Gap 11 BUN 19 H Creatinine 0.74 Estim Creat Clear Calc Not Reportable Estimated GFR > 60 Glucose 98 POC Capillary Glucose 109 H 163 H Calcium 8.6 Urine Color Urine Appearance Urine pH Ur Specific [place] Urine Protein Urine Glucose (UA) Urine Ketones Ur Blood (Man) Urine Nitrate Urine Bilirubin Urine Urobilinogen Add Ur Microanalysis Leukocyte Esterase Rfl Urine RBC Urine WBC Ur Squamous Epith Cells Urine Bacteria Urine Casts Quality VTE Prophylaxis VTE prophylaxis: mechanical ordered
[2024-10-09 17:01] LABS: Glucose Point of Care 193 mg/dl (65-105)
[2024-10-09 21:34] LABS: Glucose Point of Care 233 mg/dl (65-105)
[2024-10-10] VITALS: PULSE 104
[2024-10-10] MEDS: metroNIDAZOLE 500 MG/ISO 100ML 500 MG/100 ML BAG 100 MG IVPB ×2 (00:47→06:13)
[2024-10-10 04:00] VITALS: PULSE 77
[2024-10-10 05:48] VITALS: BP 153/82; PULSE 54; RESP 18; TEMP 36.7; O2SAT 98
[2024-10-10 06:40] LABS: Hematocrit 30.7 % (37.0-47.0); Mean Corpuscular HGB Conc 32.6 g/dl (32-36); Mean Corpuscular Hemoglobin 30.2 pg (26-34); Mean Corpuscular Volume 92.7 fl (80-100); Mean Platelet Volume 10.5 fl (7.4-10.4); Platelet Count Result 238 k/mm3 (150-375); Red Blood Count 3.31 M/mm3 (4.2-5.4); Red Cell Distribution Width 13.1 % (11.5-14.5); White Blood Count 12.4 K/mm3 (4.5-10.0)
[2024-10-10 06:48] LABS: Anion Gap 11 mmol/L (4-12); Blood Urea Nitrogen 13 mg/dL (7-17); Calcium 8.5 mg/dL (8.4-10.2); Carbon Dioxide 20 mmol/L (22-30); Chloride 108 mmol/L (98-107); Estimated Glomerular Filt Rate > 60; Glucose 104 mg/dL (65-110); Potassium 3.2 mmol/L (3.4-5.0); Sodium 139 mmol/L (137-145)
[2024-10-10 08:00] VITALS: PULSE 109
[2024-10-10 08:10] LABS: Glucose Point of Care 114 mg/dl (65-105)
[2024-10-10] MEDS: amLODIPine BESYLATE 10 MG TABLET PO (08:35)
[2024-10-10] MEDS: LIDOCAINE 5% PATCH 1 PATCH TRANSDERM (08:35)
[2024-10-10] MEDS: LOSARTAN POTASSIUM 100 MG TABLET PO (08:35)
[2024-10-10] MEDS: IBUPROFEN 600 MG TABLET PO (08:36)
[2024-10-10] MEDS: POTASSIUM CHLORIDE 20 MEQ PACKET (FOR LIQUID) 40 MEQ PO (08:36)
[2024-10-10] MEDS: AMOXICILLIN/CLAVULANATE K 875-125 MG TAB 1 TABLET PO (09:31)
[2024-10-10] MEDS: hydrALAZINE HCL 50 MG TABLET PO (09:31)
[2024-10-10 11:46] LABS: Glucose Point of Care 285 mg/dl (65-105)
[2024-10-10] MEDS: INSULIN ASPART (*BKC) 100 UNITS/ML SUB-Q (11:56)
[2024-10-10 12:00] VITALS: PULSE 117
--- NOTE | 2024-10-10 13:21 | P.DS_ITS ---
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 She is admitted for sudden onset abdominal pain that radiated towards her back and into her chest. Pain was sharp, associated with nausea. Differentials are broad: gastroenteritis, bowel obstruction, cholecystitis, cholelithiasis, others. Troponin, CBC, CMP, lipase, EKG and chest x-ray ordered. Initial EKG shows no evidence of ischemia. Negative troponin, mildly elevated lactic acid 2.4, negative toxicological panel and UDS. She has an elevated leukocytosis of 18.5 which is unclear to be associated she has no signs or symptoms of infectious process especially with a negative urinalysis, no signs of pneumonia, no signs of intra-abdominal or thoracic infectious process. Hg and platelets are normal. Hypokalemia 2.8 which was repleted, normal creatinine, slight hyperglycemia, normal LFTs. Negative troponin. Negative lipase. Negative viral panel. CT of the chest abdomen pelvis with angiography ordered in ed. She was given fentanyl, Zofran and fluid bolus CT angiography of the chest abdomen and pelvis - no acute aortic syndrome, no evidence of a pulmonary embolism, no acute findings within the thorax or abdomen or pelvis. No acute aortic pathology. Given her persistent tachycardia and abdominal pain a pelvic ultrasound to assess for torsion was ordered: normal uterus and ovaries and a fluid distended urinary bladder. Soria catheter was inserted with release of almost 1 L of flui d. She reports stopping metformin but now states takes it daily instead of BID. We will restart it. She does reports frequent constipations but not taking anything for it. Will add miralax. Will hold hydralazine as tachycardic- she was started on beta blockers and hr was well controlled. She later dropped to 50-60 and medication was stopped. She will have to monitor HR and BP and keep log. Will need a close up with pcp for further management. 10/06- ordered BC- WBC 14.7, 100.1 temp last night added ER metoprolol added lidocaine patch advance diet 10/07 repeat lipase add hepatitis panel abd ultrasound ordered- if no sludge or no acute findings- will consider HIDA scan 10/08- abd ultrasound: Findings within the gallbladder suggesting acute cholecystitis, in the appropriate clinical setting, as detailed above. Evaluation of the pancreas is limited by overlying bowel gas. will start antibiotics surgery consult 10/09 wbc improving. surgery consulted. pt doesnot want to do surgery. continue antibiotics overnight- downgrade to po tomorrow and d/c home knows to f/u with surgery if abd pain returns. 10/10 antibiotics are augmentin -need 15 more doses-last dose 10/17 2099, flagyl 22 more doses- last day 10/17 2199 Status at Discharge Functional status at discharge: independent ambulation Overall status at discharge: patient is progressing back to baseline Time Spent with Patient Time attestation: Total time spent providing and/or coordinating discharge services: Time spent: Greater than 30 minutes Exam Narrative: rt sided weakness-slight- baseline abd pain is better with diet control Const: General: comfortable; No confusion Orientation/consciousness: No confusion HENMT: Other: poor dental hygiene Resp: Effort & Inspection: normal respiratory effort Auscultation: clear to auscultation bilaterally Cardio: Rate: regular rate and tachycardic Rhythm: regular rhythm GI: Auscultation: normal bowel sounds Urinary Catheter: Urinary Catheter: patent and draining and urine clear Skin: General skin exam: normal color Neuro: General: No confusion Extrem: General: normal to inspection Psych: Mental Status: mental status grossly normal Affect: normal affect DS: Data Data Completed and Pending Labs on day of discharge: Labs from last 24 hours 10/10/24 10/10/24 10/10/24 11:39 08:00 05:59 WBC 12.4 H RBC 3.31 L Hgb 10.0 L Hct 30.7 L MCV 92.7 MCH 30.2 MCHC 32.6 RDW 13.1 Plt Count 238 MPV 10.5 H Sodium 139 Potassium 3.2 L Chloride 108 H Carbon Dioxide 20 L Anion Gap 11 BUN 13 D Creatinine 0.61 L Estim Creat Clear Calc Not Reportable Estimated GFR > 60 Glucose 104 POC Capillary Glucose 285 H 114 H Calcium 8.5 10/09/24 10/09/24 20:46 16:46 WBC RBC Hgb Hct MCV MCH MCHC RDW Plt Count MPV Sodium Potassium Chloride Carbon Dioxide Anion Gap BUN Creatinine Estim Creat Clear Calc Estimated GFR Glucose POC Capillary Glucose 233 H 193 H Calcium Preliminary micro results at discharge 10/06/24 14:18 Blood Culture - Preliminary Blood 10/06/24 14:18 Blood Culture - Preliminary Blood Discharge Plan Discharge Attending physician on discharge: Elmer Ovalle Consulting providers: Glenn Nur Discharging Clinician: Giselle Proctor Patient Disposition: Home, Self-Care Activity: december shower Diet: low fat Discharge Instructions: you were admitted ofr abd pain. Abdominal ultrasound showed Acute calculous cholecystitis- surgery saw you and recommended surgery. You chose to proceed with supportive measures pain mngmnt and low fat diet. We strated you on antibiotics- please finish the course- augmentin - 15 more doses- last date of tehrapy 2/25 pm dose and flagyl- 22 more doses- last day 2/25 pm dose. For your BP- we were holding your hydralazine as it could course increase heart rate. Please restart your mediations as you were taking them before. PLease check BP and pulse in am and keep log. Bring that log to your PCP lucille for review. WE had you on metoprolol ER here briefly and it contolled your heart rate well and you had no side effects in case if you need to start on beta yovani in the future. Please, f/u with surgery if abd pain return as you may need to have surgery in the future. Patient Instructions: Antibiotic Form, Low Fat Diet (DC) Patient Language: Malay Stand Alone Forms: General Discharge Information Follow-up/Referrals: Rosa Elena Humphrey DO [Primary Care Provider] - 2 Weeks Glenn Nur DO [Physician] - 2 Weeks Discharge Medications: New metronidazole 500 mg Tablet 500 mg PO Q8HR Qty: 15 0RF amoxicillin-pot clavulanate 875-125 mg tablet 1 tablet PO Q12H Qty: 15 0RF Continued amlodipine [Norvasc] 10 mg tablet 10 mg PO DAILY Qty: 90 1RF losartan 100 mg tablet 100 mg PO DAILY Qty: 90 1RF Held hydralazine 50 mg tablet 50 mg PO TID Qty: 90 1RF Hold Instructions: Resume on 10/24/24. hold if heart rate above 100 as it could make your heart rate go faster Date of admission: 10/05/24 06:43 Primary Care Provider: Rosa Elena Humphrey Admitting Provider: Eladia Ramirez Attending physician on admission: Eladia Ramirez Condition: Stable Quality VTE Prophylaxis VTE prophylaxis: mechanical ordered Hospitalist MIPS Heart Failure (Exclusion) Patient has history of Heart Transplant or Left Ventricular Assistive Device?: N o IF YES, STOP HERE Heart Failure (Qualifier) Patient has current or prior documentation of LVEF less than or equal to 40%, or mod/servere depressed LVSF?: No IF NO, STOP HERE
== END 2024-10-10 14:25 | disposition home or self-care (01) ==
LOC: ANHED 06:56 → ANH3MEDSUR 10-06 08:58
PROVIDERS: Student in an Organized Health Care Education/Training Program; Admitting Provider General Practice; Emergency Provider Student in an Organized Health Care Education/Training Program; PCP Family Medicine; Visit Provider Nurse Practitioner
DX: K80.00 Calculus of gallbladder with acute cholecystitis without obstruction (principal); I69.151 Hemiplegia and hemiparesis following nontraumatic intracerebral hemorrhage affecting right dominant side; I69.122 Dysarthria following nontraumatic intracerebral hemorrhage; K59.00 Constipation, unspecified; E11.9 Type 2 diabetes mellitus without complications; E44.0 Moderate protein-calorie malnutrition; I10 Essential (primary) hypertension; R25.1 Tremor, unspecified; R00.0 Tachycardia, unspecified; Z68.1 Body mass index [BMI] 19.9 or less, adult; Z20.822 Contact with and (suspected) exposure to COVID-19; Z28.21 Immunization not carried out because of patient refusal; Z87.891 Personal history of nicotine dependence
CPT/HCPCS: 36415; 71275; 72198; 74174; 74185; 76700; 76856; 80048; 80053; 80061; 80076; 80143; 80179; 80307; 81001; 81003; 82077; 82948; 83036; 83605; 83690; 84443; 84484; 85025; 85027; 87040; 87637; 93005; 96361; 96365; 96366; 96367; 96375; 96376; 97110; 97161; 97165; 97530; 97535; 99285; A9270; A9577; C8902; C8920; J0360; J0696; J0780; J1171; J1815; J1836; J2405; J3010; J3475; J3480; J7030; J7040; J7120; Q9967

== ENCOUNTER 2024-11-08 12:21 | Outpatient (CLI) | payer OTHER, SELFPAY ==
--- OUTSIDE RECORDS SUMMARY | 2024-11-08 13:55 | XMS_ITS | Continuity of Care Document ---
Author Organization [facility] Address [address] [place] [address] [place] [address] Phone Care Team Providers Care Senior Information Security Analyst Name Role Phone Sven Luther MD Unavailable [...] Copied on Encounter OFFICE/OUTPA TIENT VISIT, EST [facility], [address] [place], [address], [place] tel:[phone] [facility] sick1 (chief complaint) pain (chief complaint) GERD1 (chief complaint) HTN (chief complaint) Viral infectionAbdominal painGERD w/o esophagitisEssentia l (primary) hypertensionChronic pain syndrome 1 Ashkan Carpenter [address] [place], [place], [address] , [place]. [phone] OFFICE/OUTPA TIENT VISIT, EST [facility], [address], [place], [place], [address], [place] tel:[phone] [facility] HTN (chief complaint) GERD1 (chief complaint) pain (chief complaint) Chronic pain syndromeEssential (primary) hypertensionGERD w/o esophagitis 1 Ashkan Carpenter [address], [place], [place], [address] , [place]. tel: [phone] OFFICE/OUTPA TIENT VISIT, [facility], [address], [place], [place], [address], [place] tel:[phone] [facility] HLP (chief complaint) osteopenia 1 (chief complaint) HTN (chief complaint) DM (chief complaint) pain (chief complaint) polycyther mia1 (chief complaint) GERD w/o esophagitisEssentia l (primary) hypertensionHyperli pidemiaSecondary polycythemiaType 2 diabetes mellitus with diabetic nephropathyChronic pain syndromeOth disrd of bone density and structure, multiple sites 1 Ashkan Carpenter [address], [place], [place], [address] , [place]. tel: [phone] OFFICE/OUTPA TIENT VISIT, [facility], [address], [place], [place], [address], [place] tel:[phone] [facility] HTN (chief complaint) HLP (chief complaint) polycythem ia1 (chief complaint) DM (chief complaint) pain1 (chief complaint) GERD1 (chief complaint) Essential (primary) hypertensionType 2 diabetes mellitus with diabetic nephropathySecondar y polycythemiaHyperli pidemiaGERD w/o esophagitisChronic pain syndrome 0 Ashkan Carpenter [address], [place], [place], [address] , [place]. [phone] PREV VISIT, EST, AGE 40-64 [facility], [address], [place], [place], [address], [place] tel:[phone] [facility] physical (chief complaint) Encntr for general adult medical exam w/o abnormal findings 0 Ashkan Carpenter [address], [place], [place], [address] , [place]. tel: [phone] OFFICE/OUTPA TIENT VISIT, [facility], [address], [place], [place], [address], [place] tel:[phone] [facility] pain (chief complaint) GERD1 (chief complaint) HTN (chief complaint) breast1 (chief complaint) GERD w/ esophagitisChronic pain syndromeEssential (primary) hypertensionEncount er for oth screening for malignant neoplasm of breast 0 Ashkan Carpenter [address], [place], [place], [address] , [place]. tel:[phone] OFFICE/OUTPA TIENT VISIT, [facility], [address], [place], [place], [address], [place] tel:[phone] [facility] osteopenia 1 (chief complaint) DM (chief complaint) lymph1 (chief complaint) pain1 (chief complaint) dysphagia1 (chief complaint) Type 2 diabetes mellitus without complicationsLympha denopathyChronic pain syndromeGERD w/ esophagitisOth disrd of bone density and structure, multiple sites 9 Ashkan [address], [place], [place], [address] , [place]. tel:[phone] OFFICE/OUTPA TIENT VISIT, [facility], [address] [place] [address], [place] tel:[phone] [facility] chroinc pain1 (chief complaint) HLP (chief complaint) DM (chief complaint) lice (chief complaint) weight loss1 (chief complaint) lymphnode1 (chief complaint) HyperlipidemiaLymph adenopathyAbnormal weight lossChronic pain syndromeType 2 diabetes mellitus without complicationsHead-l ouse infestation 9 Ashkan Carpenter [address], [place], [place], [address] , [place]. tel:[phone] Referring Provider: Janes Ta A, [place], [place], [address]. tel:[phone] OFFICE/OUTPA TIENT VISIT, EST [facility], [address], [place], [place], [address], [place] tel:[phone] [facility] DM (chief complaint) chronci pain (chief complaint) HTN (chief complaint) lymph1 (chief complaint) Type 2 diabetes mellitus without complicationsEssent ial (primary) hypertensionChronic pain syndromeLymphadenop athy 9 Ashkan Machuca. [address], [place], [place], [address] , [place]. [phone] PREV VISIT, EST, AGE 40-64 [facility], [address], [place], [place], [address], [place] tel:[phone] [facility] Medicine PHysical (chief complaint) Encounter for general adult medical exam w abnormal findingsGERD w/o esophagitisOth disrd of bone density and structure, multiple sitesHyperlipidemia Type 2 diabetes mellitus without complicationsChroni c pain syndromeLymphadenop athy 9 Ashkan Machuca. [address], [place], [place], [address] , [place]. tel: [phone] Referring Provider: Janes Ta [address], [place], [place], [address]. tel:[phone] OFFICE/OUTPA TIENT VISIT, EST [facility], [address], [place], [place], [address], [place] tel:[phone] [facility] HTN (chief complaint) HLP (chief complaint) GERD1 (chief complaint) DM (chief complaint) neck pain1 (chief complaint) Essential (primary) hypertensionGERD w/o esophagitisHyperlip idemiaChronic pain syndromeType 2 diabetes mellitus without complications 9 Ashkan Machuca. [address], [place], [place], [address] , [place]. [phone] Referring Provider: Janes [address], [place], [place], [address]. tel:[phone] OFFICE/OUTPA TIENT VISIT, EST [facility], [address] [place], [address], [place] tel:[phone] [facility] dysphagia1 (chief complaint) neck pain1 (chief complaint) HLP (chief complaint) HTN (chief complaint) HyperlipidemiaType 2 diabetes mellitus without complicationsDyspha giaEssential (primary) hypertensionChronic pain syndromeEncounter for screening for osteoporosisEncount er for oth screening for malignant neoplasm of breast 8 Ashkan Machuca. [address], [place], [place], [address] , [place]. tel:[phone] Referring Provider: Janes Ta [facility] A, [place], [place], [address]. tel:[phone] OFFICE/OUTPA TIENT VISIT, EST [facility], [address] [place], [address], [place] tel:[phone] [facility] DM (chief complaint) nec pain1 (chief complaint) HLP (chief complaint) tobacco1 (chief complaint) weight loss1 (chief complaint) Type 2 diabetes mellitus without complicationsAbnorm al weight lossMixed hyperlipidemiaChron ic pain syndromeTobacco use 8 Ashkan Carpenter [address], [place], [place], [address] , [place]. tel:[phone] Referring Provider: Janes Ta [address], [place], [place], [address]. tel:[phone] PREV VISIT, EST, AGE 40-64 [facility], [address], [place], [place], [address], [place] tel:[phone] [facility] PHysial (chief complaint) Encounter for general adult medical exam w abnormal findingsTachycardia GERD w/o esophagitisType 2 diabetes mellitus without complicationsEssent ial (primary) hypertension Nov-2 0 8 Ashkan Carpenter [address], [place], [place], [address] , [place]. tel:[phone] Referring Provider: Janes [address], [place], [place], [address]. tel:[phone] OFFICE/OUTPA TIENT VISIT, [facility], [address], [place], [place], [address], tel:[phone] [facility] DM (chief complaint) HTN (chief complaint) renal stone1 (chief complaint) tachycardi a1 (chief complaint) GERD1 (chief complaint) neck pain1 (chief complaint) Essential (primary) hypertensionType 2 diabetes mellitus without complicationsTachyc ardiaGERD without esophagitis 8 Ashkan Machuca. [address], [place], [place], [address] , [place]. [phone] Referring Provider: Janes [address], [place], [place], [address]. tel:[phone] OFFICE/OUTPA TIENT VISIT, [facility], [facility] [address] [place], [address], [place] tel:[phone] [facility] flank pain1 (chief complaint) KCL (chief complaint) polycythem ia1 (chief complaint) weight loss1 (chief complaint) tachycardi a1 (chief complaint) Abnormal weight lossTachycardiaRena l stoneAbnormal EKG 8 Ashkan Carpenter [address], [place], [place], [address] , [place]. tel:[phone] Referring Provider: Janes [address], [place], [place], [address]. tel:[phone] OFFICE/OUTPA TIENT VISIT, [facility], [address] [place], [address], [place] tel:[phone] [facility] HTN (chief complaint) neck pain1 (chief complaint) DM (chief complaint) Mixed hyperlipidemiaEssen tial (primary) hypertensionType 2 diabetes mellitus without complications 7 Ashkan Machuca. [address], [place], [place], [address] , [place]. [phone] Referring Provider: Janes [address], [place], [place], [address]. tel:[phone] OFFICE/OUTPA TIENT VISIT, EST [facility], [address], [place], [place], [address], [place] [phone] [facility] HLP (chief complaint) HTN (chief complaint) GERD1 (chief complaint) neck pain1 (chief complaint) DM (chief complaint) Type 2 diabetes mellitus without complicationsEssent ial (primary) hypertensionMixed hyperlipidemiaGERD without esophagitis 7 Ashkan Machuca. [address], [place], [place], [address] , [place]. [phone] Referring Provider: Janes [address], [place], [place], [address]. tel:[phone] PREV VISIT, EST, AGE 40-64 [facility], [address], [place], [place], [address], [place] tel:[phone] [facility] PHysical (chief complaint) Encounter for general adult medical exam w abnormal findingsMixed hyperlipidemiaEssen tial (primary) hypertensionPain in right shoulder 7 Ashkan Machuca. [address], [place], [place], [address] , [place]. [phone] Referring Provider: Janes [address], [place], [place], [address]. tel:[phone] OFFICE/OUTPA TIENT VISIT, [facility], [address], [place], [place], [address], [place] tel:[phone] [facility] DM (chief complaint) HLP (chief complaint) HTN (chief complaint) GERD1 (chief complaint) Essential (primary) hypertensionMixed hyperlipidemiaType 2 diabetes mellitus without complicationsRenal disease 6 Ashkan Machuca. [address], [place], [place], [address] , [place]. [phone] Referring Provider: Janes [address], [place], [place], [address]. tel:[phone] OFFICE/OUTPA TIENT VISIT, [facility], [address], [place], [place], [address], [place] tel:[phone] [facility] cough1 (chief complaint) Acute bronchitis Apr- 6 Ashkan Machuca. [address], [place], [place], [address] , [place]. tel:[phone] Referring Provider: Janes [address], [place], [place], [address]. tel:[phone] OFFICE/OUTPA TIENT VISIT, [facility], [facility] [address], [place], [place], [address], [place] tel:[phone] [facility] DM (chief complaint) HTN (chief complaint) GERD1 (chief complaint) renal disease1 (chief complaint) neck pain1 (chief complaint) Renal diseaseMixed hyperlipidemiaEssen tial (primary) hypertensionGERD without esophagitis Feb- 6 Ashkan Machuca. [address], [place], [place], [address] , [place]. [phone] Referring Provider: Janes [address], [place], [place], [address]. tel:[phone] OFFICE/OUTPA TIENT VISIT, [facility], [address], [place], [place], [address], [place] tel:[phone] [facility] DM (chief complaint) renal disease (chief complaint) neck pain1 (chief complaint) GERD1 (chief complaint) Renal diseaseType 2 diabetes mellitus without complicationsCervic algiaGERD w/o esophagitis Nov-0 6 Ashkan Machuca. [address], [place], [place], [address] , [place]. tel:[phone] Referring Provider: Janes [address], [place], [place], [address]. tel:[phone] OFFICE/OUTPA TIENT VISIT, [facility], [address], [place], [place], [address], [place] tel:[phone] [facility] DM (chief complaint) renal diseas (chief complaint) HLP (chief complaint) GERD1 (chief complaint) Mixed hyperlipidemiaRenal diseaseType 2 diabetes mellitus without complications Oct-0 6 Ashkan Machuca. [address], [place], [place], [address] , [place]. tel:[phone] Referring Provider: Sven Luther, [address], [place], [place], [address]. tel:[phone] OFFICE/OUTPA TIENT VISIT, EST [facility], [address], [place], [place], [address], [place] tel:[phone] [facility] DM1 (chief complaint) HLP1 (chief complaint) GERD1 (chief complaint) Type 2 diabetes mellitus without complicationsMixed hyperlipidemiaGERD without esophagitisEncounte r for screening for osteoporosis 5 Ashkan Machuca. [address], [place], [place], [address] , [place]. [phone] Referring Provider: Janes [address], [place], [place], [address]. tel:[phone] PREV VISIT, EST, AGE 40-64 [facility], [address], [place], [place], [address], [place] tel:[phone] [facility] PHysical (chief complaint) Dietary surveillance and counselingRoutine general medical examination at a health care facility 5 Ashkan Machuca. [address], [place], [place], [address] , [place]. tel:[phone] Referring Provider: Janes [address], [place], [place], [address]. tel:[phone] OFFICE/OUTPA TIENT VISIT, EST [facility], [address], [place], [place], [address], [place] tel:[phone] [facility] HLP (chief complaint) glucose (chief complaint) toe infection (chief complaint) Unspecified essential hypertensionGERD - Gastro-esophageal reflux diseaseParonychia of toeOther and unspecified hyperlipidemia 5 Ashkan Machuca. [address], [place], [place], [address] , [place]. [phone] Referring Provider: Sven Luther, [address] [facility] [address], [place], [place], [address]. tel:[phone] OFFICE/OUTPA TIENT VISIT, [facility], [address] [place], [address], [place] [phone] [facility] HTN (chief complaint) hyperglyde tessa (chief complaint) HLP (chief complaint) GERD (chief complaint) Dietary surveillance and counselingHypertens ion, UnspecifiedHypergly cemiaOther and unspecified hyperlipidemia 4 Ashkan Carpenter [address], [place], [place], [address] , [place]. tel:[phone] Referring Provider: Janes [address], [place], [place], [address]. tel:[phone] PREV VISIT, NEW, AGE 40-64 [facility], [address] [place], [address], [place] tel:[phone] [facility] Physical (chief complaint) Dietary surveillance and counselingRoutine Medical ExamRoutine Medical Exam 4 Ashkan Carpenter [address], [facility] [place], [address] , [place]. [phone] Family History Family Member Type Diagnosis Age At Onset No Information Payers Payer name Insurance type Covered democrat ID Authoriza tion(s) No Information Social History [...] Pt denies any sob. Pt works at [employer] and she does not want to get [...] MD [address] [place], [place], [address] Ordered: Referrals: Valentín Jerome MD Evaluate and treat ordered Referral Ordered: OPERATIVE UPPER GI ENDOSCOPY ordered Referral Ordered: Lit Lopez (related to Abnormal EKG) ordered Referral Referred To: John Lit [address] [place], [place] [id number] Ordered: Referrals: Lit Lopez. Evaluate and treat [...] Pt denies any sob. 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 Related to Hy perlipidemia Increase physical activity. Rela checo to Type 2 diabetes mellitus without complications Check blood sugar twice a day. R elated to Type 2 diabetes mellitus without complications Special diet education Related t o Body mass index (BMI) 24.0-24.9, adult Weight management Related to Enc ounter for [...] Diet Related to Dietary Surveillance and Counseling Decrease caloric intake Related to Dietary surveillance counseling Dietary counseling Related to Di etary surveillance counseling Dietary counseling Related to Di etary surveillance counseling Decrease caloric intake Related to Dietary surveillance counseling Assessments Type Assessment Date assessment Viral infection assessment Abdominal pain assessment GERD w/o esophagitis assessment Essential (primary) hypertension assessment Chronic pain syndrome Mental Status Date Cognitive Assessment Orientation - [place] ed to time, place, person, situation.
[2024-11-08 14:10] LABS: Alanine Aminotransferase 18 U/L (6-35); Albumin Level 4.4 g/dL (3.5-5.1); Alkaline Phosphatase 72 U/L (38-126); Amylase 87 U/L (30-110); Aspartate Amino Transferase 18 U/L (14-36); Bilirubin,Total 0.4 mg/dL (0.2-1.3); Lipase 135 U/L (23-300)
== END 2024-11-08 12:22 | disposition home or self-care (01) ==
LOC: ANHSURGERY 12:32
PROVIDERS: PCP Family Medicine; Visit Provider Surgery
DX: K80.00 Calculus of gallbladder with acute cholecystitis without obstruction (principal)
CPT/HCPCS: 36415; 80076; 82150; 83690

== ENCOUNTER 2024-11-14 18:34 | Observation (INO) | payer OTHER, SELFPAY ==
[2024-11-01 14:31] VITALS: BMI 16.9
--- NOTE | 2024-11-01 14:40 | PC.NURSE ---
Report to the Outpatient Waiting Room, entrance under the green pavilion located off [facility], at time _1100_ on date _11/13/24_. Planned Procedure Time: 1300.? Time changes happen often and if your time is changed the preop area will call you the afternoon before. - You and your visitor will be asked to self-screen and do not enter if you have any COVID symptoms. Please call surgeon if you need to reschedule. - A mask is optional within the hospital at this time. Patients may have clear liquids (water, carbonated beverages, clear teas, apple juice) until 3 hours prior to surgery with a maximum of 20 ounces. - No food from midnight until time of surgery and no smoking, or chewing tobacco (or any form of nicotine). No chewing gum, candy or mints. - Infants may have breast milk until 4 hours before surgery, formula 6 hours prior to surgery. - Children will be allowed to drink immediately following surgery.? If applicable, please bring a bottle or sippy cup to assist with drinking. Juice, water, soda, and popsicles are readily available.? For infants on formula, please bring formula the day of surgery.? Pacifiers are allowed. Take only the following medications with a SIP of water on the morning of surgery: ___AMLODIPINE DO NOT STOP ANY OF YOUR OTHER PRESCRIPTION MEDICATIONS PRIOR TO SURGERY EXCEPT THE FOLLOWING Hold all vitamins and supplements for 3 days per anesthesiologist. Medications to discontinue per physician NONE Date to take last dose Please no make-up, nail upper sorbian, hairspray, perfume, deodorant, or body powder the day of surgery.? No jewelry (including any body piercings) or valuables the day of surgery, leave them at home.? Please take a shower or bath the night before, or the morning of, surgery with an antibacterial soap.? Wear comfortable, loose fitting clothing.? Children are encouraged to wear pajamas. - Jewelry must be removed prior to entering the operating room.? Rings and piercings that are not removed may be cut off. - The hospital will not accept responsibility for valuables.? - Please leave all valuables, including medications, at home the day of surgery. If you are going home after surgery, a licensed miniature train driver must drive you home.? - NO public transportation without another adult if you receive anesthesia. - We recommend that an adult stay with you for 24 hours following discharge. - We also recommend that you do not drive, make important decision, drink alcoholic beverages, or take any drugs that were not prescribed by your health care provider for at least 24 hours after your discharge time. For Pediatric surgeries, we recommend two adults accompany the child home. Follow any additional instructions given to you from your surgeon. Telephone instructions given to __PATIENT__and asked if any additional questions and then verbalized understanding. Patient advised to call surgeon office or pre surgery nurse liaison [phone] if any additional questions.
[2024-11-13] VITALS (16 sets, daily range): BP systolic 134–176; BP diastolic 72–100; PULSE 54–126; RESP 12–20; TEMP 36.2–37.1; O2SAT 96–100
--- OUTSIDE RECORDS SUMMARY | 2024-11-13 01:47 | XMS_ITS | Continuity of Care Document ---
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 [phone] OFFICE/OUTPA TIENT VISIT, EST [facility], [address], [place], [place], [address], [place] tel:[phone] [facility] HTN (chief complaint) GERD1 (chief complaint) pain (chief complaint) Chronic pain syndromeEssential (primary) hypertensionGERD w/o esophagitis 1 Ashkan Carpenter [address], [place], [place], [address] , [place]. tel: [phone] OFFICE/OUTPA TIENT VISIT, [facility], [address], [place], [place], [address], [place] tel:[phone] [facility] HLP (chief complaint) osteopenia 1 (chief complaint) HTN (chief complaint) DM (chief complaint) pain (chief complaint) polycyther mia1 (chief complaint) GERD w/o esophagitisEssentia l (primary) hypertensionHyperli pidemiaSecondary polycythemiaType 2 diabetes mellitus with diabetic nephropathyChronic pain syndromeOth disrd of bone density and structure, multiple sites 1 Ashkan Carpenter [address], [place], [place], [address] , [place]. tel: [phone] OFFICE/OUTPA TIENT VISIT, [facility], [address], [place], [place], [address], [place] tel:[phone] [facility] HTN (chief complaint) HLP (chief complaint) polycythem ia1 (chief complaint) DM (chief complaint) pain1 (chief complaint) GERD1 (chief complaint) Essential (primary) hypertensionType 2 diabetes mellitus with diabetic nephropathySecondar y polycythemiaHyperli pidemiaGERD w/o esophagitisChronic pain syndrome 0 Ashkan Carpenter [address], [place], [place], [address] , [place]. tel:[phone] PREV VISIT, EST, AGE 40-64 [facility], [address], [place], [place], [address], [place] tel:[phone] [facility] physical (chief complaint) Encntr for general adult medical exam w/o abnormal findings 0 Ashkan Carpenter [address], [address], [place], [place], [address] , [place]. [phone] OFFICE/OUTPA TIENT VISIT, [facility], [address], [place], [place], [address], [place] tel:[phone] [facility] pain (chief complaint) GERD1 (chief complaint) HTN (chief complaint) breast1 (chief complaint) GERD w/ esophagitisChronic pain syndromeEssential (primary) hypertensionEncount er for oth screening for malignant neoplasm of breast 0 Ashkan Carpenter [address], [place], [place], [address] , [place]. [phone] OFFICE/OUTPA TIENT VISIT, [facility], [address], [place], [place], [address], [place] tel:[phone] [facility] osteopenia 1 (chief complaint) DM (chief complaint) lymph1 (chief complaint) pain1 (chief complaint) dysphagia1 (chief complaint) Type 2 diabetes mellitus without complicationsLympha denopathyChronic pain syndromeGERD w/ esophagitisOth disrd of bone density and structure, multiple sites 9 Ashkan [address], [place], [place], [address] , [place]. tel:[phone] OFFICE/OUTPA TIENT VISIT, [facility], [address] [place], [address], [place] tel:[phone] [facility] chroinc pain1 (chief complaint) HLP (chief complaint) DM (chief complaint) lice (chief complaint) weight loss1 (chief complaint) lymphnode1 (chief complaint) HyperlipidemiaLymph adenopathyAbnormal weight lossChronic pain syndromeType 2 diabetes mellitus without complicationsHead-l ouse infestation 9 Ashkan Carpenter [address], [place], [place], [address] , [place]. tel:[phone] Referring Provider: Janes Ta A, [place], [place], [address]. tel:[phone] OFFICE/OUTPA TIENT VISIT, EST [facility], [address], [place], [place], [address], [place] tel:[phone] [facility] DM (chief complaint) chronci pain (chief complaint) HTN (chief complaint) lymph1 (chief complaint) Type 2 diabetes mellitus without complicationsEssent ial (primary) hypertensionChronic pain syndromeLymphadenop athy 9 Ashkan Machuca. [address], [place], [place], [address] , [place]. [phone] PREV VISIT, EST, AGE 40-64 [facility], [address], [place], [place], [address], [place] tel:[phone] [facility] PHysical (chief complaint) Encounter for general adult medical exam w abnormal findingsGERD w/o esophagitisOth disrd of bone density and structure, multiple sitesHyperlipidemia Type 2 diabetes mellitus without complicationsChroni c pain syndromeLymphadenop athy 9 Ashkan Machuca. [address], [place], [place], [address] , [place]. [phone] Referring Provider: Janes Ta [address], [place], [place], [address]. tel:[phone] OFFICE/OUTPA TIENT VISIT, EST [facility], [address], [place], [place], [address], [place] tel:[phone] [facility] HTN (chief complaint) HLP (chief complaint) GERD1 (chief complaint) DM (chief complaint) neck pain1 (chief complaint) Essential (primary) hypertensionGERD w/o esophagitisHyperlip idemiaChronic pain syndromeType 2 diabetes mellitus without complications 9 Ashkan Machuca. [address], [place], [place], [address] , [place]. [phone] Referring Provider: Janes Ta [address], [place], [place], [address]. tel:[phone] OFFICE/OUTPA TIENT VISIT, EST [facility], [address] [place], [address], [place] tel:[phone] [facility] dysphagia1 (chief complaint) neck pain1 (chief complaint) HLP (chief complaint) HTN (chief complaint) HyperlipidemiaType 2 diabetes mellitus without complicationsDyspha giaEssential (primary) hypertensionChronic pain syndromeEncounter for screening for osteoporosisEncount er for oth screening for malignant neoplasm of breast 8 Ashkan Machuca. [address], [place], [place], [address] , [place]. tel:[phone] Referring Provider: Janes Ta [facility] A, [place], [place], [address]. tel:[phone] OFFICE/OUTPA TIENT VISIT, EST [facility], [address] [place], [address], [place] tel:[phone] [facility] DM (chief complaint) nec pain1 (chief complaint) HLP (chief complaint) tobacco1 (chief complaint) weight loss1 (chief complaint) Type 2 diabetes mellitus without complicationsAbnorm al weight lossMixed hyperlipidemiaChron ic pain syndromeTobacco use 8 Ashkan Carpenter [address], [place], [place], [address] , [place]. tel:[phone] Referring Provider: Janes Ta [address], [place], [place], [address]. tel:[phone] PREV VISIT, EST, AGE 40-64 [facility], [address], [place], [place], [address], [place] tel:[phone] [facility] PHysial (chief complaint) Encounter for general adult medical exam w abnormal findingsTachycardia GERD w/o esophagitisType 2 diabetes mellitus without complicationsEssent ial (primary) hypertension Nov-2 0 8 Ashkan Carpenter [address], [place], [place], [address] , [place]. tel:[phone] Referring Provider: Janes [address], [place], [place], [address]. tel:[phone] OFFICE/OUTPA TIENT VISIT, [facility], [address], [place], [place], [address], tel:[phone] [facility] DM (chief complaint) HTN (chief complaint) renal stone1 (chief complaint) tachycardi a1 (chief complaint) GERD1 (chief complaint) neck pain1 (chief complaint) Essential (primary) hypertensionType 2 diabetes mellitus without complicationsTachyc ardiaGERD without esophagitis 8 Ashkan Machuca. [address], [place], [place], [address] , [place]. tel:[phone] Referring Provider: Janes [address], [place], [place], [address]. tel:[phone] OFFICE/OUTPA TIENT VISIT, [facility], [facility] [address] [place], [address], [place] tel:[phone] [facility] flank pain1 (chief complaint) KCL (chief complaint) polycythem ia1 (chief complaint) weight loss1 (chief complaint) tachycardi a1 (chief complaint) Abnormal weight lossTachycardiaRena l stoneAbnormal EKG 8 Ashkan Carpenter [address], [place], [place], [address] , [place]. tel:[phone] Referring Provider: Janes [address], [place], [place], [address]. tel:[phone] OFFICE/OUTPA TIENT VISIT, [facility], [address] [place], [address], [place] tel:[phone] [facility] HTN (chief complaint) neck pain1 (chief complaint) DM (chief complaint) Mixed hyperlipidemiaEssen tial (primary) hypertensionType 2 diabetes mellitus without complications 7 Ashkan Machuca. [address], [place], [place], [address] , [place]. [phone] Referring Provider: Janes [address], [place], [place], [address]. tel:[phone] OFFICE/OUTPA TIENT VISIT, EST [facility], [address], [place], [place], [address], [place] [phone] [facility] HLP (chief complaint) HTN (chief complaint) GERD1 (chief complaint) neck pain1 (chief complaint) DM (chief complaint) Type 2 diabetes mellitus without complicationsEssent ial (primary) hypertensionMixed hyperlipidemiaGERD without esophagitis 7 Ashkan Machuca. [address], [place], [place], [address] , [place]. [phone] Referring Provider: Janes [address], [place], [place], [address]. tel:[phone] PREV VISIT, EST, AGE 40-64 [facility], [address], [place], [place], [address], [place] tel:[phone] [facility] PHysical (chief complaint) Encounter for general adult medical exam w abnormal findingsMixed hyperlipidemiaEssen tial (primary) hypertensionPain in right shoulder 7 Ashkan Machuca. [address], [place], [place], [address] , [place]. [phone] Referring Provider: Janes [address], [place], [place], [address]. tel:[phone] OFFICE/OUTPA TIENT VISIT, [facility], [address], [place], [place], [address], [place] tel:[phone] [facility] DM (chief complaint) HLP (chief complaint) HTN (chief complaint) GERD1 (chief complaint) Essential (primary) hypertensionMixed hyperlipidemiaType 2 diabetes mellitus without complicationsRenal disease 6 Ashkan Machuca. [address], [place], [place], [address] , [place]. [phone] Referring Provider: Janes Ta [address], [place], [place], [address]. tel:[phone] OFFICE/OUTPA TIENT VISIT, [facility], [address], [place], [place], [address], [place] tel:[phone] [facility] cough1 (chief complaint) Acute bronchitis Apr- 6 Ashkan Machuca. [address], [place], [place], [address] , [place]. tel:[phone] Referring Provider: Janes [address], [place], [place], [address]. tel:[phone] OFFICE/OUTPA TIENT VISIT, [facility], [facility] [address], [place], [place], [address], [place] tel:[phone] [facility] DM (chief complaint) HTN (chief complaint) GERD1 (chief complaint) renal disease1 (chief complaint) neck pain1 (chief complaint) Renal diseaseMixed hyperlipidemiaEssen tial (primary) hypertensionGERD without esophagitis Feb- 6 Ashkan Machuca. [address], [place], [place], [address] , [place]. [phone] Referring Provider: Janes [address], [place], [place], [address]. tel:[phone] OFFICE/OUTPA TIENT VISIT, [facility], [address], [place], [place], [address], [place] tel:[phone] [facility] DM (chief complaint) renal disease (chief complaint) neck pain1 (chief complaint) GERD1 (chief complaint) Renal diseaseType 2 diabetes mellitus without complicationsCervic algiaGERD w/o esophagitis Nov-0 6 Ashkan Machuca. [address], [place], [place], [address] , [place]. tel:[phone] Referring Provider: Janes Ta [address], [place], [place], [address]. tel:[phone] OFFICE/OUTPA TIENT VISIT, [facility], [address], [place], [place], [address], [place] tel:[phone] [facility] DM (chief complaint) renal diseas (chief complaint) HLP (chief complaint) GERD1 (chief complaint) Mixed hyperlipidemiaRenal diseaseType 2 diabetes mellitus without complications Oct-0 6 Ashkan Machuca. [address], [place], [place], [address] , [place]. tel:[phone] Referring Provider: Sven Luther, [address], [place], [place], [address]. tel:[phone] OFFICE/OUTPA TIENT VISIT, EST [facility], [address], [place], [place], [address], [place] tel:[phone] [facility] DM1 (chief complaint) HLP1 (chief complaint) GERD1 (chief complaint) Type 2 diabetes mellitus without complicationsMixed hyperlipidemiaGERD without esophagitisEncounte r for screening for osteoporosis 5 Ashkan Machuca. [address], [place], [place], [address] , [place]. [phone] Referring Provider: Janes Ta [address], [place], [place], [address]. tel:[phone] PREV VISIT, EST, AGE 40-64 [facility], [address], [place], [address], [place] tel:[phone] [facility] PHysical (chief complaint) Dietary surveillance and counselingRoutine general medical examination at a health care facility 5 Ashkan Machuca. [address], [place], [place], [address] , [place]. tel:[phone] Referring Provider: Janes [address], [place], [place], [address]. tel:[phone] OFFICE/OUTPA TIENT VISIT, EST [facility], [address], [place], [place], [address], [place] tel:[phone] [facility] HLP (chief complaint) glucose (chief complaint) toe infection (chief complaint) Unspecified essential hypertensionGERD - Gastro-esophageal reflux diseaseParonychia of toeOther and unspecified hyperlipidemia 5 Ashkan Machuca. [address], [place], [place], [address] , [place]. [phone] Referring Provider: Sven Luther, [address] [facility] A, [place], [place], [address]. tel:[phone] OFFICE/OUTPA TIENT VISIT, [facility], [address] [place], [address], [place] [phone] [facility] HTN (chief complaint) hyperglyde tessa (chief complaint) HLP (chief complaint) GERD (chief complaint) Dietary surveillance and counselingHypertens ion, UnspecifiedHypergly cemiaOther and unspecified hyperlipidemia 4 Ashkan Carpenter [address], [place], [place], [address] , [place]. tel:[phone] Referring Provider: Janes [address], [place], [place], [address]. tel:[phone] PREV VISIT, NEW, AGE 40-64 [facility], [address] [place], [address], [place] tel:[phone] [facility] Physical (chief complaint) Dietary surveillance and counselingRoutine Medical ExamRoutine Medical Exam 4 Ashkan Carpenter [address], [facility] [place], [address] , [place]. [phone] Family History Family Member Type Diagnosis Age At Onset No Information Payers Payer name Insurance type Covered green party ID Authoriza tion(s) No Information Social [...] Pt denies any sob. Pt works at [employer] and she does not want to get [...] MD [address] [place], [place], [address] Ordered: Referrals: Valentín Jerome MD Evaluate and treat ordered Referral Ordered: OPERATIVE UPPER GI ENDOSCOPY ordered Referral Ordered: Lit Lopez (related to Abnormal EKG) ordered Referral Referred To: John Lit [address] [place], [place] [id number] Ordered: Referrals: Lit Lopez. Evaluate and treat [...] Pt denies any sob. 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
[2024-11-13] MEDS: KETOROLAC 15 MG/ML VIAL (*BKC) IV PUSH (12:00)
[2024-11-13] MEDS: ACETAMINOPHEN 500 MG TABLET 1000 MG PO (12:00)
[2024-11-13] MEDS: LACTATED RINGERS 1,000 ML 30 ML IV CONT ×2 (12:00→14:21)
[2024-11-13 12:06] LABS: Glucose Point of Care 125 mg/dl (65-105)
--- NOTE | 2024-11-13 12:36 | P.HP_ITS ---
H&P: HPI History of Present Illness Date/Time: 11/13/24 12:36 Chief Complaint: Acute/chronic calculous cholecystitis Narrative: This is a 64-year-old woman who presents for laparoscopic cholecystectomy. She was recently hospitalized and was found to have evidence of acute calculous cholecystitis. She has had frequent problems in the past. She initially was wanting to delay surgery but kept having pain therefore has now decided that proceeding with surgery would be best long-term. Review of Systems Review of Systems: All systems reviewed & are unremarkable except as noted in HPI and below Constitutional: Constitutional: Denies chills, Denies fever(s), Denies headache(s) and Denies weight loss Eyes: Eyes: Denies change in vision ENT: Denies dizziness, Denies headache(s), Denies neck mass and Denies throat swelling Cardiovascular: Cardiovascular: Denies chest pain, Denies lightheadedness and Denies dyspnea Respiratory: Respiratory: Denies cough, Denies dyspnea and Denies wheezing Gastrointestinal: Gastrointestinal: Denies abdominal pain, Denies change in bowel habits, Denies nausea and Denies vomiting Genitourinary: Genitourinary: Denies hematuria and Denies dysuria Musculoskeletal: Musculoskeletal: Reports as per HPI Integumentary/Breasts: Skin/Breast: Reports as per HPI Neurologic: Denies dizziness and Denies headache(s) Allergic/Immunologic: Allergic/Immunologic: Denies throat swelling and Denies wheezing [facility], [facility] Past Medical History Medical History (Updated 11/01/24 @ 22:38 by Rosa Elena Humphrey DO) Type 2 diabetes mellitus with hyperglycemia Essential (primary) hypertension Basal ganglia hemorrhage Family History Family History Other Diabetes mellitus Family history of malignant neoplasm Social History Social History Smoking packs per day: 0.5 Smoking cigarettes per day: 10.0 Years smoked: 2 Smoking pack-years: 1.00 Smoking status: Former smoker Tobacco type: cigarettes Second hand tobacco smoke exposure: No Smoking end date: 08/23/84 Additional smoking assessment comments: QUIT IN THE 'S Alcohol intake: former Substance use: never Substance use type: does not use Do You Feel Safe in your Home?: Yes Lack of Transportation: No Lack of Food: Never True Current Housing: I Have Housing Concerned About Future Housing: No Difficulty Paying Gas/Electric Bills: No Difficulty Paying for Meds: No Currently Unemployed: No Education: High School Diploma/GED Difficulty w/ Childcare or Family Care: No Living arrangements: with family Spiritual care concerns: No Meds Home Medications and Allergies Home Medications ?Medication ?Instructions ?Recorded ?Confirmed ?Type amlodipine 10 mg tablet (Norvasc) 10 mg PO DAILY #90 tabs 10/05/24 11/13/24 Rx losartan 100 mg tablet 100 mg PO DAILY #90 tabs 10/05/24 11/13/24 Rx nut.tx.gluc.intol,lac-free,soy 1 ea PO BID-TID #948 mL 10/20/24 11/01/24 Rx (Glucerna Advance oral liquid) polyethylene glycol 3350 17 4 g PO DAILY PRN constipation 11/01/24 11/01/24 History gram/dose oral powder Allergies Allergy/AdvReac Type Severity Reaction Status Date / Time No Known Allergies Allergy Verified 11/13/24 12:14 Vital Signs Vital Signs - 24 hr 11/13/24 12:00 Temperature 98.4 F Pulse Rate 54 L Respiratory Rate 14 Blood Pressure 147/92 H Pulse Oximetry 99 Oxygen Delivery Room Air Exam Const: General: no acute distress and alert Orientation/consciousness: patient oriented x3 HENMT: Head: normocephalic and atraumatic Ears: hearing grossly normal bilaterally Face/Nose/Sinus: Normal nares present Mouth: Yes Normal oral and palatal mucosa present Eyes: Periorbital: periorbital findings normal Sclera: sclerae normal EOM: EOMs intact bilaterally Neck: Neck: normal visual inspection, no lymphadenopathy and trachea midline Chest: Chest palpation & inspection: normal inspection of the chest Resp: Effort & Inspection: normal respiratory effort Auscultation: clear to auscultation bilaterally Cardio: Jugular venous distension: no JVD Rate: regular rate Rhythm: regular rhythm Heart sounds: S1 normal heart sound present and S2 normal heart sound present Peripheral pulses: Peripheral pulses 2+ throughout GI: Inspection: normal to inspection GI Palp: Yes Soft to palpation, No Tenderness to palpation present (GI), No Guarding due to palpation present (GI) and No Rebound tenderness present Percussion: Yes normal to percussion Auscultation: normal bowel sounds : General: Yes no CVA tenderness Back/Spine/Pelvis: Back: no CVA tenderness Neuro: General: patient oriented x3, no focal motor deficits and CN's II-XI intact bilaterally Cognition (Neuro): normal cognition Speech: normal speech Motor exam (neuro): 5/5 motor strength present throughout Extrem: General: capillary refill normal and no clubbing, cyanosis or edema Assessment and Plan Assessment and plan (1) Acute calculous cholecystitis: Code(s): K80.00 - Calculus of gallbladder with acute cholecystitis without obstruction Status: Acute Assessment and Plan: I have recommended laparoscopic cholecystectomy, possible open. I have discussed the procedure, risks, benefits, and alternatives with the patient. All questions answered. No changes since last seen in office.
--- NOTE | 2024-11-13 12:36 | WPDHPUPDATE1 ---
History and Physical Update Update Date/Time: 11/13/24 12:36 History and Physical has been reviewed, including an updated exam of the patient. There are NO changes in the patient's condition. Risks, benefits, and alternatives have been discussed and questions answered. Patient agrees to proceed with procedure.
--- NOTE | 2024-11-13 12:46 | P.PNAN_ITS ---
Anes - Initial Pre Proc Eval Procedure: Operation Date: 11/13/24 13:00 Proposed Procedures p Laparoscopic Cholecystectomy, Possible Open - Glenn Nur DO Date/Time: 11/13/24 12:46 Surgeon: Glenn Nur DO Pre Op Diagnosis: acute chronic calculous cholecystitis Patient Data Age: 64 Gender: F Height: 1.5 m Weight: 37.5 kg Last Vital Signs Temp 98.4 F 11/13/24 12:00 Pulse 54 L 11/13/24 12:00 Resp 14 11/13/24 12:00 BP 147/92 H 11/13/24 12:00 Pulse Ox 99 11/13/24 12:00 O2 Del Method Room Air 11/13/24 12:00 Allergies Allergy/AdvReac Type Severity Reaction Status Date / Time No Known Allergies Allergy Verified 11/13/24 12:14 Home Medications ?Medication ?Instructions ?Recorded ?Confirmed ?Type amlodipine 10 mg tablet (Norvasc) 10 mg PO DAILY #90 tabs 10/05/24 11/13/24 Rx losartan 100 mg tablet 100 mg PO DAILY #90 tabs 10/05/24 11/13/24 Rx nut.tx.gluc.intol,lac-free,soy 1 ea PO BID-TID #948 mL 10/20/24 11/01/24 Rx (Glucerna Advance oral liquid) polyethylene glycol 3350 17 4 g PO DAILY PRN constipation 11/01/24 11/01/24 History gram/dose oral powder Laboratory Tests 11/13/24 12:03 POC Capillary Glucose 125 H mg/dl (65-105) Patient hx anesthesia problems: post op nausea/vomiting Family hx anesthesia problems: none Results Review: All pre-operative results and documents have been reviewed as part of the pre- operative evaluation. [facility] Past Medical History Medical History Type 2 diabetes mellitus with hyperglycemia Essential (primary) hypertension Basal ganglia hemorrhage Family History Family History Other Diabetes mellitus Family history of malignant neoplasm Social History Social History Smoking packs per day: 0.5 Smoking cigarettes per day: 10.0 Years smoked: 2 Smoking pack-years: 1.00 Smoking status: Former smoker Tobacco type: cigarettes Second hand tobacco smoke exposure: No Smoking end date: 08/23/84 Additional smoking assessment comments: QUIT IN THE 90'S Alcohol intake: former Substance use: never Substance use type: does not use Do You Feel Safe in your Home?: Yes Lack of Transportation: No Lack of Food: Never True Current Housing: I Have Housing Concerned About Future Housing: No Difficulty Paying Gas/Electric Bills: No Difficulty Paying for Meds: No Currently Unemployed: No Education: High School Diploma/GED Difficulty w/ Childcare or Family Care: No Living arrangements: with family Spiritual care concerns: No Anes - Eval Final PreProcedure Day of Procedure 11/13/24 12:46 Patient weight: cachectic and thin Lungs: normal air movement Airway: Mallampati scale class II and special considerations (Teeth in very poor condition, many missing and broken. Pt reports none loose. ) Neurological: alert and oriented Last oral intake: >/= 8 hours ASA classification: III Emergent: no Anesthetic plan: proceed Anesthesia type and monitoring: general ETT and standard monitoring Results Review: All pre-operative results and documents have been reviewed as part of the pre- operative evaluation. 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 Pt now w sig wt loss and abd pain. Discussed w pt and Dr Nur, pt is now s/p CVA 6 months which meets the current rec for proceeding w elective/urgent surgery. Discussed all R/B/A w pt and she wishes to proceed. Informed Consent: The patient's anesthetic plan and its attendant risks and benefits were discussed with the patient/family/POA. Questions were solicited and answers provided to the satisfaction of the patient/family/POA.
[2024-11-13] MEDS: ceFAZolin 2 GM/D5W 50 ML 2 GM/50 ML BAG IVPB (13:07)
[2024-11-13] MEDS: BUPIVACAINE/EPINEPHRINE 0.5% 30 ML VIAL INFILTRATE (13:36)
--- NOTE | 2024-11-13 14:24 | W.PM.PROC2 ---
Procedure Note - Detailed Date of Procedure 11/13/24 Pre-op Diagnosis acute/chronic calculous cholecystitis Post-op Diagnosis Same Procedure Performed Laparoscopic cholecystectomy Surgeon Glenn Nur, DO Anesthesia General and Local (0.5% bupivacaine) Indications This is a 64-year-old woman who was recently hospitalized for acute calculous cholecystitis. She was admitted on 10/05/2024 and was experiencing right upper quadrant abdominal pain. CT and MR angiogram were initially negative, but gallbladder ultrasound showed evidence of cholelithiasis with gallbladder wall thickening and pericholecystic fluid. She was feeling better during that admission and wanted to avoid surgery. She then called back a few days later saying that she was still experiencing pain and now wants to consider surgery. Discussions were made with the patient over the phone about continuing low-fat diet and planning surgery electively about 6 weeks out from her hospitalization. After further discussions, the decision was made to proceed with laparoscopic cholecystectomy, possible open. Findings Laparoscopic cholecystectomy was performed. The gallbladder appeared to have pericholecystic adhesions and gallbladder wall thickening. The wall of the gallbladder at the gallbladder fossa was very friable and appeared somewhat gangrenous. There were multiple gallstones within the gallbladder. The cystic duct appeared normal in size. No other significant abnormalities were noted. The gallbladder was removed and sent to the lab for pathology. Description of Procedure Procedure as well as risks, benefits, and alternatives were discussed with patient. Written consent was obtained and placed in chart prior to procedure. The patient was brought back to surgical suite. Patient was placed in supine position on operating table. Time-out was done to confirm patient and procedure. Patient was then intubated by the anesthesia department. Abdomen was prepped and draped in sterile fashion using chlorhexidine prep. 0.5% bupivacaine with epinephrine was infiltrated at each site of incision. An 11 millimeter vertical incision was made at the inferior portion of the umbilicus using a 15 blade scalpel. Blunt dissection was carried down to the linea alba. The linea alba was then incised using a 15 blade scalpel. The peritoneum was then bluntly entered. An 11 millimeter trocar was inserted and carbon dioxide insufflation was used to create a pneumoperitoneum. The camera was inserted and the abdomen was inspected. The patient was placed in reverse Trendelenberg position and rotated slightly to the left. A 5 millimeter incision was made in the epigastric region, and a 5 millimeter trocar was inserted under direct visualization. Two 5 millimeter incisions were made in the right upper quadrant, and two 5 millimeter trocars were inserted under direct visualization. The gallbladder was identified and grasped at the fundus and retracted superiorly. It was then grasped at the infundibulum retracted laterally. Careful dissection around the neck of the gallbladder was performed using blunt dissection with a [place] grasper and hook electrocautery. The cystic duct was identified, and a window was created behind it. The cystic artery was also identified and a window was created behind it. The critical view of safety was identified, visualizing the cystic duct running directly into the neck of the gallbladder, and the cystic artery running directly into the wall of the gallbladder. A 5 millimeter clip oracle software engineer was then used to place 2 clips proximally and 1 clip distally on both the cystic duct and cystic artery. They were then both transected using endoscopic scissors. Once safely away from the ravi hepatitis, the gallbladder was dissected free from the liver bed using hook electrocautery. Hemostasis was achieved along the way. The gallbladder was removed completely and then removed through the umbilical port. The liver bed was then inspected. Hemostasis appeared adequate, and our clips appeared secure. The area was gently irrigated with sterile saline. No other abnormalities were seen. The patient was flattened out in bed, and 1 final inspection was made around the abdominal cavity. The ports were then removed under direct visualization, the camera was removed, and the pneumoperitoneum was released. The fascia of the umbilical incision was approximated using an 0 Vicryl [id number] suture. The skin of the incisions was approximated using 4-0 Monocryl subcuticular sutures. Exofin glue was applied on top. The patient was then awakened from anesthesia, extubated, and transferred to recovery. Estimated Blood Loss 20 Urine Output 300 Pathology Yes (Gallbladder) Complications No immediate complications Condition Stable Disposition Observation [facility] Billing Surgery - Charge Forward: Surgery Billing
[2024-11-13 14:32] LABS: Glucose Point of Care 148 mg/dl (65-105)
[2024-11-13] MEDS: fentaNYL CITRATE INJ (*CRX) 100 MCG/2 ML VIAL 25 MCG IV PUSH ×7 (14:57→16:12)
--- NOTE | 2024-11-13 16:20 | PC.NURSE ---
This patient, Jen Liriano, was admitted to [facility] Surg Room 329-01. Patient/family oriented to hospital policies and general routines including ID bracelet, bed and alarms, visiting hours, pain management, procedures, bathroom and other care routines, personal items, smoking policy, room service/diet, and visiting hours. Information on how to activate the Rapid Response Team has been discussed. Patient/Family are encouraged to report perceived risks to care and to ask questions if they do not understand what they are told or what they should do. Patient is very drowsy.
[2024-11-13] MEDS: LACTATED RINGERS 1,000 ML 100 ML IV CONT (17:32)
[2024-11-14 02:02] VITALS: BP 155/89; PULSE 82; RESP 18; TEMP 37; O2SAT 98
[2024-11-14] MEDS: HYDROcodone/acetaminophen (*CRX) 5-325 MG TABLET 1 TAB PO ×3 (04:36→20:28)
[2024-11-14] MEDS: ONDANSETRON INJ 4 MG/2 ML VIAL IV PUSH ×3 (04:38→20:30)
[2024-11-14 05:46] VITALS: BP 156/96; PULSE 88; RESP 18; TEMP 36.6; O2SAT 100
[2024-11-14 06:22] LABS: Hematocrit 32.8 % (37.0-47.0); Hemoglobin 10.9 g/dL (12.0-15.0); Mean Corpuscular HGB Conc 33.2 g/dl (32-36); Mean Corpuscular Volume 93.2 fl (80-100); Mean Platelet Volume 9.9 fl (7.4-10.4); Platelet Count Result 215 k/mm3 (150-375); Red Blood Count 3.52 M/mm3 (4.2-5.4); Red Cell Distribution Width 13.5 % (11.5-14.5); White Blood Count 16.9 K/mm3 (4.5-10.0)
[2024-11-14 06:33] LABS: Anion Gap 10 mmol/L (4-12); Blood Urea Nitrogen 18 mg/dL (7-17); Calcium 9.3 mg/dL (8.4-10.2); Carbon Dioxide 24 mmol/L (22-30); Chloride 105 mmol/L (98-107); Estimated Glomerular Filt Rate > 60; Glucose 118 mg/dL (65-110); Potassium 3.8 mmol/L (3.4-5.0); Sodium 139 mmol/L (137-145)
[2024-11-14 08:00] VITALS: BP 145/91; PULSE 104; RESP 18; TEMP 37.2; O2SAT 97
[2024-11-14] MEDS: amLODIPine BESYLATE 10 MG TABLET PO (08:46)
[2024-11-14] MEDS: LOSARTAN POTASSIUM 100 MG TABLET PO (08:46)
[2024-11-14] MEDS: ACETAMINOPHEN 500 MG TABLET PO (08:48)
[2024-11-14 12:00] VITALS: BP 148/92; PULSE 98; RESP 16; TEMP 36.4; O2SAT 97
[2024-11-14 16:00] VITALS: BP 124/71; PULSE 59; RESP 20; TEMP 36.8; O2SAT 98
[2024-11-15 05:29] VITALS: BP 142/81; PULSE 90; RESP 16; TEMP 36.9; O2SAT 98
[2024-11-15] MEDS: LOSARTAN POTASSIUM 100 MG TABLET PO (09:01)
[2024-11-15] MEDS: HYDROcodone/acetaminophen (*CRX) 7.5-325 MG TABLET 1 TAB PO ×2 (09:01→17:46)
[2024-11-15] MEDS: amLODIPine BESYLATE 10 MG TABLET PO (09:01)
[2024-11-15] MEDS: ONDANSETRON INJ 4 MG/2 ML VIAL IV PUSH ×2 (09:04→17:46)
--- NOTE | 2024-11-15 10:24 | P.PNGS_ITS ---
Progress Note: A&P Assessment and Plan (1) Acute calculous cholecystitis: Code(s): K80.00 - Calculus of gallbladder with acute cholecystitis without obstruction Status: Acute Assessment and Plan: * Postop day 2 and surgically doing well, but has not been ambulating. She is tolerating a diet and postop soreness is well controlled. Will have staff get her up and try ambulating today. PT/OT ordered to evaluate her for discharge. If she tolerates more activity and therapy agrees with discharge home with her , then we will discharge later today. Will await PT recommendations. Subjective Subjective Date/Time Seen: 11/15/24 10:24 Patient reports: no new complaints Interval history: Reports incisional soreness, but well controlled with oral analgesics. Tolerating her diet without any nausea or vomiting. She reports she has been able to get up to the chair and going to the bathroom, but staff is reporting she is a stand and pivot with assist. She has not ambulated. They are concerned about her activity level in terms of going home with her . Review of Systems Review of Systems: All systems reviewed & are unremarkable except as noted in HPI and below Exam Const: General: comfortable and no acute distress Resp: Effort & Inspection: normal respiratory effort Auscultation: clear to auscultation bilaterally Cardio: Rate: regular rate Rhythm: regular rhythm GI: Inspection: non-distended and incision (incisions dry and intact) GI Palp: Yes Soft to palpation, Yes Tenderness to palpation present (GI) (incisional) and No Guarding due to palpation present (GI) Auscultation: normal bowel sounds Neuro: General: patient oriented x3 and other (right sided weakness c/w baseline weakness from previous stroke) Speech: normal speech Extrem: General: no calf tenderness and no edema Psych: Mental Status: mental status grossly normal Insight: Good insight present (Psych) Objective Data Vital Signs Vital Signs: Vital Signs - 24 hr 11/14/24 12:00 11/14/24 16:00 11/14/24 20:00 Temperature 97.5 F L 98.3 F Pulse Rate 98 59 L Respiratory Rate 16 20 Blood Pressure 148/92 H 124/71 Pulse Oximetry 97 98 Oxygen Delivery Room Air 11/15/24 05:29 11/15/24 09:00 Temperature 98.5 F Pulse Rate 90 Respiratory Rate 16 Blood Pressure 142/81 H Pulse Oximetry 98 Oxygen Delivery Room Air Intake/Output Intake/Output: Intake & Output 11/12/24 11/13/24 11/14/24 11/15/24 23:59 23:59 23:59 23:59 Intake Total 1999 1808 240 Output Total 300 Balance 1700 1808 240 Meds/Results Medications: Active Medications Generic Name Dose Route Start Last Admin Trade Name Freq PRN Reason Stop Dose Admin Acetaminophen 500 mg 11/13/24 16:17 11/14/24 08:48 Acetaminophen 500 Mg Tablet PO 500 mg Q6H PRN Administration Pain Rated 1-3 Hydrocodone Bitart/Acetaminophen 1 tab 11/13/24 16:17 11/14/24 20:28 Hydrocodone/Acetaminophen (*Crx) 5-325 Mg Tablet PO 1 tab Q4H PRN Administration Pain Rated 4-6 Hydrocodone Bitart/Acetaminophen 1 tab 11/13/24 16:17 11/15/24 09:01 Hydrocodone/Acetaminophen (*Crx) 7.5-325 Mg Tablet PO 1 tab Q4H PRN Administration Pain Rated 7-10 Amlodipine Besylate 10 mg 11/14/24 09:00 11/15/24 09:01 Amlodipine Besylate 10 Mg Tablet PO 10 mg DAILY ANGELINA Administration Losartan Potassium 100 mg 11/14/24 09:00 11/15/24 09:01 Losartan Potassium 100 Mg Tablet PO 100 mg DAILY ANGELINA Administration Morphine Sulfate 2 mg 11/13/24 16:17 Morphine Sulfate (*Crx) 2 Mg/Ml Inj IV PUSH Q2H PRN Breakthrough Pain Rated 4-6 or NPO Morphine Sulfate 4 mg 11/13/24 16:17 Morphine Sulfate (*Crx) 4 Mg/Ml Inj IV PUSH Q2H PRN Breakthrough Pain Rated 7-10 or NPO Naloxone HCl 0.1 mg 11/13/24 16:17 Naloxone Hcl 0.4 Mg/Ml Vial IV PUSH Q2M PRN Opiate Reversal Ondansetron HCl 4 mg 11/13/24 16:17 11/15/24 09:04 Ondansetron Inj 4 Mg/2 Ml Vial IV PUSH 4 mg Q4H PRN Administration Nausea And Vomiting Polyethylene Glycol 17 gm 11/14/24 12:58 Polyethylene Glycol 3350 17 Gm Powd.Pack PO DAILY PRN constipation
[2024-11-15 10:48] VITALS: BMI 16.7
[2024-11-15 14:00] VITALS: BP 121/61; PULSE 75; RESP 14; TEMP 36.1; O2SAT 91
[2024-11-15 22:00] VITALS: BP 127/73; PULSE 60; RESP 18; TEMP 36.8; O2SAT 97
[2024-11-16 06:00] VITALS: BP 139/53; PULSE 75; RESP 18; TEMP 36.6; O2SAT 95
[2024-11-16] MEDS: HYDROcodone/acetaminophen (*CRX) 5-325 MG TABLET 1 TAB PO ×2 (08:13→13:24)
[2024-11-16] MEDS: LOSARTAN POTASSIUM 100 MG TABLET PO (08:13)
[2024-11-16] MEDS: amLODIPine BESYLATE 10 MG TABLET PO (08:13)
--- NOTE | 2024-11-16 09:34 | P.DS_ITS ---
DS: Admitting Diagnosis Discharge Date 11/16/2024 Admitting Diagnosis Acute calculous cholecystitis History of CVA DS: Discharge Diagnosis Discharge Diagnosis (1) Acute calculous cholecystitis: Code(s): K80.00 - Calculus of gallbladder with acute cholecystitis without obstruction Status: Acute DS: Summary Hospital Course Reason for hospitalization: This is a 64-year-old woman who presented for laparoscopic cholecystectomy on 11/13/2024. She was recently hospitalized and was found to have evidence of acute calculous cholecystitis. She has had frequent problems in the past. She initially was wanting to delay surgery but kept having pain therefore has now decided that proceeding with surgery would be best long-term. Hospital Course: She underwent laparoscopic cholecystectomy with evidence of acute and chronic cholecystitis during surgery. No immediate complications. She was monitored overnight. She was still having a fair amount of right upper quadrant pain following surgery postop day 1. She had not been mobilizing due to the pain, which was well controlled with oral analgesics. By postop day 2, she had transfer to the commode, but still had not ambulated. PT and OT zohra was ord ered to evaluate safety for discharge. She was encouraged to mobilize and start increasing activity. By postop day 3, she was able to transfer with a walker, which she does at home. Her incisional soreness had improved and was well controlled. She is tolerating a diet. She was stable for discharge home by postop day 3. Status at Discharge Functional status at discharge: uses cane/walker Overall status at discharge: patient is progressing back to baseline Time Spent with Patient Time attestation: Total time spent providing and/or coordinating discharge services: Time spent: Less than 30 minutes Exam Const: General: comfortable and no acute distress GI: Inspection: non-distended and incision (incisions dry and intact) GI Palp: Yes Soft to palpation, Yes Tenderness to palpation present (GI) (incisional) and No Guarding due to palpation present (GI) Auscultation: normal bowel sounds Neuro: General: other (Right-sided weakness from previous CVA) Extrem: General: no calf tenderness and no edema Psych: Mental Status: mental status grossly normal Insight: Good insight present (Psych) DS: Data Data Completed and Pending Completed studies during hospitalization: PATHOLOGY Gallbladder, cholecystectomy: - Severe chronic cholecystitis with gangrenous changes - No choleliths identified within specimen Procedures/Treatments: Procedures Operation Date: 11/13/24 13:00 Actual Procedure Side Surgeon p Laparoscopic Cholecystectomy Glenn Storm DO Discharge Plan Discharge Attending physician on discharge: Glenn Storm Discharging Clinician: Pam Bradshaw Anticipated Discharge Date/Time: 11/16/24 09:41 Patient Disposition: Home, Self-Care Activity: may shower and other - see discharge instructions Diet: low fat Wound Care Instructions: incision open to air Discharge Instructions: DISCHARGE INSTRUCTION SHEET FOR HERNIA, GALLBLADDER AND APPENDIX SURGERIES DR. STORM 1. May shower in 24 hours, no soaking in bath x 2weeks. 2. Call office for: * Wound increasingly painful or bleeding * Vomiting * Fever of greater than 101 degrees 3. If no bowel movement for three days, take 1 oz. (30 ml) Milk of Magnesia or MiraLax 17g 1 to 2 times daily. 4. No heavy lifting > 10-15 pounds x 2 weeks for laparoscopic cholecystectomy or appendectomy. 5. No driving for 3 days or while taking narcotic pain medications. 6. Ice to surgical site for 48 hours (30 min on, then 30 min off). 7. Up walking 10-30 minutes three times per day. 8. Resume previous home medications. 9. Follow-up with Dr. Storm as scheduled on 11/30/2024 at 2:15 p.m.. ([id number]) 10. Oral pain medications prescription to be sent to pharmacy. Take Tylenol 500mg every 6 hours and Ibuprofen 600mg every 6 hours for the first 2 days, then as needed. 11. NUTRITION: Start out by drinking fluids and increase your diet as tolerated. If you experience nausea, try dry toast, crackers, and 7-UP. If nausea or vomiting persists, contact your surgeon?s office. 12. Gallbladders-Low Fat Diet for 2 weeks Patient Instructions: Antibiotic Form Patient Language: Faroese Stand Alone Forms: General Discharge Information Follow-up/Referrals: Glenn Storm DO [Physician] - 11/30/24 2:15 pm Discharge Medications: New hydrocodone-acetaminophen 5-325 mg Tablet 1 tablet PO Q6H PRN (Reason: Pain Rated 4-6) Qty: 10 0RF Continued polyethylene glycol 3350 17 gram/dose powder 4 g PO DAILY PRN (Reason: constipation) amlodipine [Norvasc] 10 mg tablet 10 mg PO DAILY Qty: 90 1RF losartan 100 mg tablet 100 mg PO DAILY Qty: 90 1RF Glucerna Advance Liquid 1 ea PO BID-TID Qty: 948 12RF Date of admission: 11/14/24 18:34 Primary Care Provider: Rosa Elena Humphrey Admitting Provider: Glenn Storm Attending physician on admission: Glenn Storm Condition: Stable Quality VTE Prophylaxis VTE prophylaxis: mechanical ordered and pharmacologic ordered
--- NOTE | 2024-11-16 11:11 | P.CDI_ITS ---
CDI Query Clarification Request BMI: 16.7 Nutritional Diagnostic Statement: Please refer to the comprehensive nutrition assessment for further information. If you agree with diagnosis of Severe protein calorie malnutrition related to poor appetite, abdominal pain as evidenced by intakes <75% needs >1 month; weight loss 24% /6 months and 9%/1 month; and severe muscle wasting and fat loss. Please specify severity if known: * Mild * Moderate * Severe * Other/Unknown <Aicha Pierce RN - Last Filed: 11/16/24 11:11> Clarified Diagnosis Clarified Diagnosis: Unknown <NADYA Whitfield - Last Filed: 11/21/24 13:57>
[2024-11-16 14:00] VITALS: BP 118/63; PULSE 90; RESP 14; TEMP 36.7; O2SAT 98
== END 2024-11-16 14:48 | disposition home or self-care (01) ==
LOC: ANHSURGERY 18:36 → ANH3MEDSUR 18:36
PROVIDERS: Admitting Provider Surgery; PCP Family Medicine; Visit Provider Surgery
PROC: 0FT44ZZ Resection of Gallbladder, Percutaneous Endoscopic Approach (ICD-10-PCS; CPT 47562; principal; 2024-11-13 13:00)
DX: K81.1 Chronic cholecystitis (principal); K82.A1 Gangrene of gallbladder in cholecystitis; E11.9 Type 2 diabetes mellitus without complications; I10 Essential (primary) hypertension; I69.351 Hemiplegia and hemiparesis following cerebral infarction affecting right dominant side; Z87.891 Personal history of nicotine dependence; Z79.899 Other long term (current) drug therapy
CPT/HCPCS: 47562; 36415; 80048; 82948; 85027; 88304; 97161; 97165; A9270; G0378; G0379; J0690; J1100; J1885; J2003; J2250; J2405; J2704; J3010; J7030; J7120

== ENCOUNTER 2025-05-31 01:23 | Day surgery (SDC) | payer OTHER, SELFPAY ==
[2025-05-23 13:01] VITALS: BMI 17.2
[2025-05-31] VITALS (7 sets, daily range): BP systolic 83–170; BP diastolic 46–101; PULSE 54–88; RESP 18–24; TEMP 37.2; O2SAT 97–100; BMI 15.7
--- NOTE | 2025-05-31 13:19 | WPDANESEPPF ---
Anes - Initial Pre Proc Eval Procedure: Operation Date: 05/31/25 14:15 Proposed Procedures p EGD & Screening Colonoscopy - Vinicio Alegre MD Date/Time: 05/31/25 13:19 Surgeon: Vinicio Alegre MD Pre Op Diagnosis: Dysphagia, unspecified, Screening Patient Data Age: 64 Gender: F Height: 1.5 m Weight: 35.5 kg Last Vital Signs Temp 37.2 C 05/31/25 13:13 Pulse 54 L 05/31/25 13:13 Resp 24 H 05/31/25 13:13 BP 170/101 H 05/31/25 13:13 Pulse Ox 100 05/31/25 13:13 O2 Del Method Room Air 05/31/25 13:13 Allergies Allergy/AdvReac Type Severity Reaction Status Date / Time No Known Allergies Allergy Verified 05/31/25 13:11 Home Medications ?Medication ?Instructions ?Recorded ?Confirmed ?Type tizanidine 2 mg tablet 2 mg PO TID PRN muscle spasticity 03/07/25 05/31/25 Rx #90 tabs amlodipine 10 mg tablet (Norvasc) 10 mg PO DAILY #90 tabs 03/26/25 05/31/25 Rx losartan 100 mg tablet 100 mg PO DAILY #90 tabs 05/28/25 05/31/25 Rx Patient hx anesthesia problems: none Family hx anesthesia problems: none Results Review: All pre-operative results and documents have been reviewed as part of the pre-operative evaluation. [facility] Past Medical History Medical History Stroke Lymphadenopathy, posterior cervical Dyslipidemia Chest pain at rest Body mass index [BMI] 23.0-23.9, adult (09/17/17) Type 2 diabetes mellitus with hyperglycemia Essential (primary) hypertension Basal ganglia hemorrhage Surgical History Surgical History Hx laparoscopic cholecystectomy 11/13/[address] Nur Family History Family History Other Diabetes mellitus Family history of malignant neoplasm Social History Social History Smoking packs per day: 0.5 Smoking cigarettes per day: 10.0 Years smoked: 2 Smoking pack-years: 1.00 Smoking status: Former smoker Tobacco type: cigarettes Second hand tobacco smoke exposure: No Smoking end date: 08/23/84 Additional smoking assessment comments: QUIT IN THE 'S Alcohol intake: never Substance use: never Substance use type: does not use Do You Feel Safe in your Home?: Yes Lack of Transportation: No Lack of Food: Never True Current Housing: I Have Housing Concerned About Future Housing: Decline to Answer Difficulty Paying Gas/Electric Bills: Decline to Answer Difficulty Paying for Meds: Decline to Answer Currently Unemployed: Decline to Answer Education: High School Diploma/GED Difficulty w/ Childcare or Family Care: Decline to Answer Living arrangements: with family Spiritual care concerns: No Anes - Eval Final PreProcedure Day of Procedure 05/31/25 13:19 Patient weight: normal Heart: regular rate and rhythm Lungs: clear to auscultation and normal air movement Airway: Mallampati scale class II Neurological: alert and oriented Last oral intake: >/= 8 hours ASA classification: III Emergent: no Anesthetic plan: proceed Anesthesia type and monitoring: general GIVS and standard monitoring Results Review: All pre-operative results and documents have been reviewed as part of the pre-operative evaluation. Informed Consent: The patient's anesthetic plan and its attendant risks and benefits were discussed with the patient/family/POA. Questions were solicited and answers provided to the satisfaction of the patient/family/POA.
[2025-05-31] MEDS: SIMETHICONE ORAL SUSPENSION 20 MG/0.3 ML 30 ML BOTTLE 1.8 ML PO (13:20)
[2025-05-31] MEDS: LACTATED RINGERS 1,000 ML 150 ML IV CONT (13:29)
--- NOTE | 2025-05-31 13:36 | P.HP_ITS ---
H&P: [facility] History of Present Illness Date/Time: 05/31/25 13:36 Chief Complaint: Dysphagia-screening colonoscopy Narrative: this patient is referred for EGD for progressively worsening dysphagia To solids. There is a history of a Schatzki ring dilated twice, the last session more than 8 years ago. There is no unintentional weight loss or heartburn. In addition, she is due for her 10 year screening colonoscopy. Review of Systems Review of Systems: All systems reviewed & are unremarkable except as noted in HPI and below [facility] Past Medical History Medical History Stroke Lymphadenopathy, posterior cervical Dyslipidemia Chest pain at rest Body mass index [BMI] 23.0-23.9, adult (09/17/17) Type 2 diabetes mellitus with hyperglycemia Essential (primary) hypertension Basal ganglia hemorrhage Surgical History Surgical History Hx laparoscopic cholecystectomy 11/13/[address] Nur Family History Family History Other Diabetes mellitus Family history of malignant neoplasm Social History Social History Smoking packs per day: 0.5 Smoking cigarettes per day: 10.0 Years smoked: 2 Smoking pack-years: 1.00 Smoking status: Former smoker Tobacco type: cigarettes Second hand tobacco smoke exposure: No Smoking end date: 08/23/84 Additional smoking assessment comments: QUIT IN THE ' Alcohol intake: never Substance use: never Substance use type: does not use Do You Feel Safe in your Home?: Yes Lack of Transportation: No Lack of Food: Never True Current Housing: I Have Housing Concerned About Future Housing: Decline to Answer Difficulty Paying Gas/Electric Bills: Decline to Answer Difficulty Paying for Meds: Decline to Answer Currently Unemployed: Decline to Answer Education: High School Diploma/GED Difficulty w/ Childcare or Family Care: Decline to Answer Living arrangements: with family Spiritual care concerns: No Meds Home Medications and Allergies Home Medications ?Medication ?Instructions ?Recorded ?Confirmed ?Type tizanidine 2 mg tablet 2 mg PO TID PRN muscle spast icity 07/16/25 10/09/25 Rx #90 tabs amlodipine 10 mg tablet (Norvasc) 10 mg PO DAILY #90 t abs 03/26/25 05/31/25 Rx losartan 100 mg tablet 100 mg PO DAILY #90 tabs 02/1405/31/25 Rx Allergies Allergy/AdvReac Type Severity Reaction Status Date / Time No Known Allergies Allergy Verified 05/31/25 13:11 Vital Signs Vital Signs - 24 hr 05/31/25 13:13 Temperature 99 F Pulse Rate 54 L Respiratory Rate 24 H Blood Pressure 170/101 H Pulse Oximetry 100 Oxygen Delivery Room Air Exam Const: General: cooperative and healthy appearing Resp: Effort & Inspection: normal respiratory effort and able to speak in complete sentences Auscultation: clear to auscultation bilaterally Cardio: Rate: regular rate Rhythm: regular rhythm GI: Inspection: normal to inspection GI Palp: No No hepatosplenomegaly present Auscultation: normal bowel sounds Rectal Exam: deferred Skin: General skin exam: normal color Psych: Appearance: grossly normal Mental Status: mental status grossly normal Assessment and Plan Assessment and plan (1) Colon cancer screening: Code(s): Z12.11 - Encounter for screening for malignant neoplasm of colon Status: Acute Assessment and Plan: The patient is deemed a good candidate for the procedure. Consent signed. Will proceed. (2) History of esophageal stricture: Code(s): Z87.19 - Personal history of other diseases of the digestive system Status: Acute
--- NOTE | 2025-05-31 14:03 | S_PTH ---
PATIENT: Jen Liriano LOC: [facility] #:[id number] AGE/SX: 64/F ROOM: RE05/31/[address]: Vinicio Alegre MD : [id number] BED: DIS: 05/31/2025 SPEC #: [id number] RECD: 06/01/25 07:21 STATUS: MAXIMINO REQ #: [id number] JEANNIE: 05/31/25 14:[address]: Vinicio Alegre DEPT: [facility] Surgical RECD BY: Michelle Almodovar ENTERED: 06/01/25 07:21 SP TYPE: Surgical OTHR DR: Rosa Elena Humphrey DO Tissues: A - Gastric Biopsy B - Gastric Biopsy Procedures: Hematoxylin and Eosin Stain Gross and Microscopic Level 4
--- NOTE | 2025-05-31 14:12 | SUR.OPER ---
EGD: ended 140 COLON: started 141
--- NOTE | 2025-05-31 14:53 | SUR.PHASEII ---
1445: DR BILLY NOTIFIED PT REMAINS ASLEEP WITH NO RESPONSE TO STIMULI, BLOOD PRESSURE 91/52, HEART RATE 70, BREATHING WITHOUT ISSUE, SPOUSE AT BEDSIDE. CONTINUING IVF'S, NO NEW ORDERS AT THIS TIME, WILL SEE PT SOON. 1455: PT REMAINS ASLEEP, UPON TOUCH AND CALLING PT'S NAME PT OPENED EYES, BACK TO SLEEP QUICKLY, B/P 106/64, HR 74. 1505: PT AWAKE BUT DROWSY, ABLE TO STATE HER NAME AND TAKE A SIP OF SODA, B/P 132/86, HR 80. SPOUSE REMAINS AT BEDSIDE. WILL CONTINUE TO ALLOW PT TO WAKE UP MORE BEFORE DISCHARGE.
--- NOTE | 2025-05-31 15:17 | SUR.PHASEII ---
NEW BAG OF FLUIDS HUNG AT 1455, 300ML GIVEN OUT OF BAG. IVF'S DC'D AT 0260
== END 2025-05-31 15:35 | disposition home or self-care (01) ==
PROVIDERS: PCP Family Medicine; Referring Provider Nurse Practitioner Family; Visit Provider Internal Medicine Gastroenterology
PROC: 0DJ08ZZ Inspection of Upper Intestinal Tract, Via Natural or Artificial Opening Endoscopic (ICD-10-PCS; CPT 45378; principal; 2025-05-31 14:15)
DX: Z12.11 Encounter for screening for malignant neoplasm of colon (principal); K64.8 Other hemorrhoids; K22.2 Esophageal obstruction; K29.50 Unspecified chronic gastritis without bleeding; K44.9 Diaphragmatic hernia without obstruction or gangrene; E78.5 Hyperlipidemia, unspecified; E11.65 Type 2 diabetes mellitus with hyperglycemia; I10 Essential (primary) hypertension; Z90.49 Acquired absence of other specified parts of digestive tract; Z87.891 Personal history of nicotine dependence; Z87.19 Personal history of other diseases of the digestive system; Z86.73 Personal history of transient ischemic attack (TIA), and cerebral infarction without residual deficits; Z80.9 Family history of malignant neoplasm, unspecified
CPT/HCPCS: 43249; 43239; 45378; 82948; 88305; J2003; J2704; J7120